=== PATIENT | female | born 1935 | race Caucasian/White ===

== ENCOUNTER → 2017-06-28 13:00 | Outpatient (CLI) | payer MEDICARE, OTHER | END | disposition home or self-care (01) | LOC: D.US 13:00 | DX: N18.4 Chronic kidney disease, stage 4 (severe) (principal) ==

== ENCOUNTER 2018-10-26 16:48 | Inpatient (IN) | payer MEDICARE, OTHER ==
[~2018-10-26] VITALS: Ht 160 cm; Wt 73.1 kg
--- NOTE | ~2018-10-26 | CN ---
PATIENT NAME:COLUMBA YU MEDICAL RECORD: [id number] : 33 LOCATION:D. D.2129 ADMIT DATE: 10/27/18 ACCOUNT: [id number] CONSULTING PHYSICIAN: WARREN ROSE MD REFERRING PHYSICIAN: TIMOTHY SOLIMAN MD DATE OF CONSULTATION: 10/28/2018 CONSULT REQUESTING PHYSICIAN: Evelyn Zapata MD REASON FOR CONSULTATION: Questionable pneumonia, right upper lobe; questionable mass. HISTORY OF PRESENT ILLNESS: Ms. Yu is an 83-year-old female who is very poor historian. The patient was admitted with worsening edema and shortness of breath. She denies any fever and chill. There is no cough and no sputum production. The patient had a chest radiograph which showed like a mass type of lesion in the right upper lobe. REVIEW OF THE SYSTEMS: As in history of present illness. PAST MEDICAL HISTORY: 1. CHF, chronic diastolic dysfunction. 2. Diabetes mellitus. 3. History of CA of breast. 4. Arthritis. PAST SURGICAL HISTORY: She had breast surgery. ALLERGIES: There is no known drug allergy. MEDICATIONS: Inkive was reviewed. PERSONAL AND SOCIAL HISTORY: The patient is an ex-smoker. She is nondrinker. FAMILY HISTORY: Noncontributory. PHYSICAL EXAMINATION: GENERAL: Now, the patient is lying comfortably in bed. She is not in acute distress. VITAL SIGNS: The blood pressure is 115/35, pulse is 72, respiration is 18, temperature is 97.5, and SpO2 is 97% on room air. HEENT: Conjunctivae are pink. Sclerae are not icteric. NECK: Neck is supple. No JVD. CHEST: The chest excursion is minimal on both sides. There are bilateral crackles. No wheezing. HEART: Rhythm regular. Normal sound. No murmur. ABDOMEN: Soft. Bowel sounds present. No hepatosplenomegaly. RECTAL: Deferred. EXTREMITIES: No cyanosis. No clubbing. Pedal edema 1+. CENTRAL NERVOUS SYSTEM: The patient is awake and alert. There is no obvious cranial nerve abnormality. The gait is normal. LABORATORY DATA: CBC; WBC is 7.7, hemoglobin 7.5, and hematocrit 23.4. On admission, her white cell count is 11.7. Chemistry; sodium 140, potassium 4.7, BUN is 96, and creatinine 3.5. CONSULT REPORT [id number] COLUMBA YU IMPRESSION: 1. Pneumonia, right upper lobe. 2. Mass type of lesion in the right upper lobe, 5 x 6.6 cm in size. 3. Pulmonary edema. 4. Pleural effusion. 5. 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 6. Congestive heart failure with chronic diastolic dysfunction. 7. Anemia. RECOMMENDATIONS: 1. Start on doxycycline IV. Start on Rocephin IV. 2. Get the CT scan of the chest. I had detailed discussion with the patient. She does not want to do the CT scan, she wants to think about it. At this stage, I spoke with Agustina, clinical nurse practitioner, that she should have a CT scan of the chest to rule out there is no mass in the right upper lobe and she will follow up on that. I will sign off if the patient is not cooperative regarding her care and she does not want to do the CT scan. Thank you for involving me in the care of Ms. Yu. TRANSINT:[id number] Voice Confirmation ID: [id number] DOCUMENT ID: [id number] WARREN ROSE MD CC: [id number] DICTATION DATE: 10/28/18 151 SITE LEADER: 10/28/18 2319 ADM IN [facility] [address] [place] [address]
--- NOTE | ~2018-10-26 | HP ---
PATIENT: COLUMBA YU MEDICAL RECORD: [id number] ACCOUNT: [id number] LOCATION:.[facility].2129 : 34 ADMISSION DATE: 10/26/18 PCP: TIMOTHY SOLIMAN MD HISTORY AND PHYSICAL EXAMINATION CHIEF COMPLAINT: Shortness of breath. HISTORY OF PRESENT ILLNESS: An 83-year-old white female patient of mine who was seen in clinic last week with signs of wweoh-ws-vdvbvvi systolic congestive heart failure. The patient had bilateral lower extremity edema and shortness of breath. Chest x-ray last week had bilateral fluffy infiltrates. The patient denied any fever. Last week, he doubled up on her Lasix and potassium and had a followup today. Today, in clinic, she reports still very short of breath and swelling worse in both lower extremities. She does not have oxygen at home. She has called the paramedics out to her house twice over the past week. She does not have a great memory. She does live at home with her family. At one point, last year, she was even on hospice for her congestive heart failure. At this time, she does not want anything to do with hospice, but she has failed outpatient treatment, so admitted to the hospital for further care. REVIEW OF SYSTEMS: CONSTITUTIONAL: No fever or chills. No weight gain. HEENT: No change in vision. Mild hard of hearing. CARDIOVASCULAR: She does have ankle swelling. No chest pain. RESPIRATORY: Positive for cough, wheeze, and shortness of breath. GASTROINTESTINAL: No nausea, vomiting, or diarrhea. GENITOURINARY: No dysuria. MUSCULOSKELETAL: No complaints of back pain. SKIN: No rash. NEUROLOGIC: No weakness or numbness. ENDOCRINE: She does complain of fatigue. PAST MEDICAL HISTORY: Anemia of chronic kidney disease; mixed hyperlipidemia; postherpetic neuritis; systolic congestive heart failure; chronic kidney disease; diabetes, insulin dependent; hypertension; and gout. PAST SURGICAL HISTORY: Cholecystectomy. MEDICATIONS: See med rec. ALLERGIES: No known drug allergies. FAMILY HISTORY: Diabetes. SOCIAL HISTORY: The patient is nonsmoker, never has been. Lives at home with her family. PHYSICAL EXAMINATION: CONSTITUTIONAL: No acute distress. HEENT: Normocephalic and atraumatic. NECK: Supple. No LAD. CARDIOVASCULAR: Regular rate and rhythm. III/ systolic ejection murmur. 1+ pedal edema. LUNGS: Decreased breath sounds bilaterally with bilateral bibasilar crackles. ABDOMEN: Soft and nontender to palpation. HISTORY AND PHYSICAL [id number] COLUMBA YU NEUROLOGIC: Awake, alert, and oriented times 3. Normal gait. SKIN: No rash. ASSESSMENT AND PLAN: Ganqx-ah-dmucmcs congestive heart failure, systolic in nature at this time. At this time, we will admit to the hospital for IV diuretics. Obtain echocardiogram and cardiology consult if needed. Other orders as written on chart. TRANSINT:[id number] Voice Confirmation ID: [id number] DOCUMENT ID: [id number] TIMOTHY SOLIMAN MD CC: [id number] DICTATION DATE: 10/26/181703 SENIOR CONSTRUCTION MANAGER: 10/26/18 180 ADM IN [place] [id number] [place] [address]
--- NOTE | 2018-10-26 18:02 | NUR ---
RECEIVED VIA WHEELCHAIR TO ROOM. DENIES NEEDS BUT FOR CHANDRA CRACKERS AND HOT TEA. WILL ADMITL.
[2018-10-26 18:36] VITALS: BP 121/47; BMI 23.9
--- NOTE | 2018-10-26 18:36 | NUR ---
22G X 1 STICK TO LEFT FA PER THIS NURSE. NON SKID SOCKS PLACED TO BILATERAL FEET WITH 2-3+ EDEMA.
--- NOTE | 2018-10-26 18:56 | NUR ---
PATIENT STATES THAT SHE WISHES TO BE A "DNR". CALL PLACED TO DR SOLIMAN TO GET AN ORDER FOR THIS.
[2018-10-26 19:11] LABS: BASOPHILS 0.2 % (0-2); EOSINOPHILS 3.2 % (0-7); HEMATOCRIT 25.6 % (36.0-48.0); HEMOGLOBIN 8.2 g/dL (12-16); IMMATURE GRANULOCYTES 0.3 % (0-5); LYMPHOCYTES 10.6 % (15-50); MCH 31.5 pg (26.0-34.0); MCV 98.5 fL (80.0-100.0); MEAN PLATELET VOLUME 10.2 fL (7.4-10.4); MONOCYTES 7.7 % (2-11); PLATELET COUNT 362 10x3/uL (130-400); RDW 13.4 % (11.5-14.5); WBC 11.7 10x3/uL (4.8-10.8)
[2018-10-26 19:47] LABS: ALBUMIN 2.3 g/dL (3.4-5.0); BILIRUBIN - TOTAL 0.21 mg/dL (0.2-1.3); CALCIUM 8.4 mg/dL (8.5-10.1); CARBON DIOXIDE 17.6 mmol/L (21.0-32.0); CREATININE - SERUM 3.5 mg/dL (0.6-1.3); PROTEIN - SERUM 7.5 g/dL (6.4-8.2)
[2018-10-26 19:56] LABS: ANION GAP 22.6 mmol/L (8-16); POTASSIUM - SERUM 6.2 mmol/L (3.5-5.1)
[2018-10-26 20:27] VITALS: BP 117/94
--- NOTE | 2018-10-27 00:22 | NUR ---
SPOKE TO ANTHONY IGNACIO WHOM SAID CONSULT WILL NEED TO BE CALLED TO OFFICE. TOLD SANDEE ABOUT PT STATUS. SHE ORDERED A BMP AT 0300 AND D5 WITH 3 AMP OF SODIUM BICARB GOING AT 50CC/HR.
[2018-10-27 02:01] VITALS: BP 115/49
[2018-10-27 04:01] LABS: BASOPHILS 0.2 % (0-2); EOSINOPHILS 3.9 % (0-7); HEMATOCRIT 24.2 % (36.0-48.0); HEMOGLOBIN 7.6 g/dL (12-16); IMMATURE GRANULOCYTES 0.3 % (0-5); LYMPHOCYTES 12.5 % (15-50); MCH 30.6 pg (26.0-34.0); MCHC 31.4 g/dL (31.0-37.0); MCV 97.6 fL (80.0-100.0); MEAN PLATELET VOLUME 10.3 fL (7.4-10.4); MONOCYTES 9.6 % (2-11); NEUTROPHILS 73.5 % (40-80); PLATELET COUNT 333 10x3/uL (130-400); RBC 2.48 10x6/uL (4.00-5.40); RDW 13.3 % (11.5-14.5); WBC 8.8 10x3/uL (4.8-10.8)
--- NOTE | 2018-10-27 04:21 | NUR ---
CRITICAL LAB WAS CALL AND REPORTED. POTASSIUM 6.2, BUN 105, CREATININE 3.5. NURSE PRACTIONER AVANI DENNIS WAS CALLED AND ORDERED KAYEXELATE 30MG PO. DEXTROSE 50 WITH 10 UNITS OF HUMULIN REG INSULIN AND 1 AMP OF CALCIUM CHLORIDE. I DID WATCH PT DRINK ALL OF THE KAYEXELATE. AND SANDEE VARMA ORDERED AUTOMATION DESIGN ENGINEER CONSULT. ANTHONY BLISS WAS CALLED AND SHE STATED THAT PT PRIMARY CARE OFFICE NEEDS TO CALL THE OFFICE TO SET UP CONSULT.
[2018-10-27 04:26] LABS: ALBUMIN 2.1 g/dL (3.4-5.0); BILIRUBIN - TOTAL 0.34 mg/dL (0.2-1.3); CARBON DIOXIDE 17.7 mmol/L (21.0-32.0); CREATININE - SERUM 3.4 mg/dL (0.6-1.3); PHOSPHOROUS 4.8 mg/dL (2.5-4.9); PROTEIN - SERUM 6.9 g/dL (6.4-8.2)
[2018-10-27 04:43] LABS: ANION GAP 18.2 mmol/L (8-16); POTASSIUM - SERUM 4.9 mmol/L (3.5-5.1)
[2018-10-27 05:42] VITALS: BP 115/49
[2018-10-27 08:02] VITALS: BP 128/74
--- NOTE | 2018-10-27 08:46 | NUR ---
UP SOB WITH CALL LIGHT IN REACH. WILL MONITOR NEEDS.
--- NOTE | 2018-10-27 09:02 | NUR ---
CALLED [facility] AND THEY ARE GOING TO FAX PT'S MED LIST OVER.
[2018-10-27] MEDS ORDERED: ROCALTROL0.25 MCG PO (09:32)
[2018-10-27] MEDS ORDERED: NORVASC5 MG PO (09:33)
[2018-10-27] MEDS ORDERED: TOPROL XL50 MG PO (09:33)
[2018-10-27] MEDS ORDERED: ISOSORBIDE MONO60 M1 PO (09:34)
[2018-10-27] MEDS ORDERED: VITAMIN D250000 UNIT PO (09:35)
[2018-10-27] MEDS ORDERED: LISINOPRIL2.5 MG PO (09:35)
[2018-10-27] MEDS ORDERED: LEVEMIR IN100 UNITS/ SC (09:35)
[2018-10-27] MEDS ORDERED: LIPITOR20 MG PO (09:36)
[2018-10-27] MEDS ORDERED: CARDURA2 MG PO (09:37)
--- NOTE | 2018-10-27 09:38 | NUR ---
RECEIVED MED LIST FAX FROM [facility]. MED REC DONE WILL SPEAK WITH PRIMARY MD ABOUT RESTARTING PT'S HOME MEDS.
--- NOTE | 2018-10-27 10:33 | NUR ---
VERIFIED WITH DR. RAMIREZ THAT HE WANTS A CHOI CATH PLACED. HE STATED FOR ACCURATE I & O.
--- NOTE | 2018-10-27 10:46 | NUR ---
SPOKE WITH DR. RAMIREZ AND HE STATES SINCE PT IS ALERT AND ORIENTED DON'T WORRY ABOUT PLACING A CHOI CTAH JUST MAKE SURE TO GET ACCURATE I&O.
[2018-10-27 10:49] VITALS: BP 132/71
--- NOTE | 2018-10-27 10:55 | NUR ---
EXPLAINED ACCUARTE I & O TO PT. PT VERBALIZED UNDERSTANDING. HAT PLACED IN PT'S TOILET.
[2018-10-27 13:07] VITALS: BMI 24.6
[2018-10-27 15:42] VITALS: BP 124/62
--- NOTE | 2018-10-27 17:44 | MORECARE ---
CASE MANAGEMENT DISCHARGE SUMMARY PATIENT: COLUMBA YU UNIT: [id number] ADM DATE: 10/27/18 AGE: 83 : 34 SEX: F ROOM/BED: D.5559 AUTHOR: MORALES JANSEN PHYSICIAN: REFERRING PHYSICIAN: TIMOTHY SOLIMAN MD DATE OF SERVICE: 10/27/18 Discharge Plan Patient Name: COLUMBA YU Facility: [facility]:[place] : 1935 Planned Disposition: Home Anticipated Discharge Date: 10/28/18 Discharge Date: Expected LOS: 1 Initial Reviewer: [email or web address] Initial Review Date: 10/27/2018 Generated: 10/27/18 6:43 pm DCPIA - Discharge Planning Initial Assessment Updated by [email or web address]: Gamaliel Riley on 10/27/18 5:43 pm * Is the patient Alert and Oriented? Yes * How many steps to enter\exit or inside your home? * PCP DR. SOLIMAN * Pharmacy [facility] [place] * Preadmission Environment Home with Family * ADLs Independent * Equipment Walker * Other Equipment DOES NOT USE ANY MEDICAL EQUIPMENT [employer] - MEDICAL EQUIPMENT PROVIDER * List name and contact numbers for known caregivers / representatives who currently or will assist patient after discharge: JV YU, SON, * Verbal permission to speak to the caregivers and representatives has been obtained from the patient. Yes * Community resources currently utilized None * Please name any agencies selected above. NONE * Additional services required to return to the preadmission environment? No * Can the patient safely return to the preadmission environment? Yes * Has this patient been hospitalized within the prior 30 days at any hospital? No Patient Name: COLUMBA YU Page [phone] at 1744 All edits/amendments must be made on the electronic document DICTATION DATE: 10/27/181742 STATISTICAL ASSISTANT: IAIN 10/27/181742 RPT#: [id number] DC DATE: STATUS: ADM IN [facility] [address] [place] [address] END OF REPORT
--- NOTE | 2018-10-27 17:58 | MORECARE ---
CASE MANAGEMENT DISCHARGE SUMMARY PATIENT: COLUMBA YU UNIT: [id number] ADM DATE: 10/27/18 AGE: 83 : 34 SEX: F ROOM/BED: D.3030 AUTHOR: JUSTYNADOC PHYSICIAN: REFERRING PHYSICIAN: TIMOTHY SOLIMAN MD DATE OF SERVICE: 10/27/18 Discharge Plan Patient Name: COLUMBA YU Facility: [facility]:[place] : 1935 Planned Disposition: Home Anticipated Discharge Date: 10/28/18 Discharge Date: Expected LOS: 1 Initial Reviewer: [email or web address] Initial Review Date: 10/27/2018 Generated: 10/27/18 6:58 pm Comments DCP- Discharge Planning Updated by [email or web address]: Gamaliel Riley on 10/27/18 4:[address] Patient Name: COLUMBA YU Admission Status: Urgent Accout number: [id number] Admission Date: 10-27-2018 : 1935 Admission Diagnosis: Attending: JOURDAN, Current LOS: 1 Anticipated DC Date: 10-28-2018 Planned Disposition: Home Primary Insurance: MEDICARE A & B Discharge Planning Comments: CM RECEIVED REQUEST TO PROVIDE PT WITH ASSISTED LIVING INFORMATION. CM MET WITH PT IN ROOM TO DISCUSS DISCHARGE PLANNING AND NEEDS. PT REPORTS LIVING AT HOME INDEPENDENTLY WITH HER ADULT SON IN HIS HOME. PT REPORTS SHE HAS HER HOME NEXT DOOR TO HER SON'S ON HIS PROPERTY AND SIGNED EVERYTHING OVER TO HIM AT THE MECHANICAL HANDYMAN'S OFFICE. PT REPORTS HER GRANDDAUGHTER IS LIVING IN HER (PT'S) HOME AND PT IS LIVING IN A ROOM IN HER SON'S HOME NOW. PT REPORT ALL OF HER NICE BELONGINGS AND THINGS ARE IN HER HOME AND NONE WILL BE MOVED UNTIL SHE DIES. PT REPORTS HER SON WILL GET HER HOUSE AND HER DAUGHTER WILL GET EVERYTHING OUT OF THE HOUSE, EVEN THOUGH SHE DOES NOT WANT IT. PT HAS A WALKER THAT SHE DOES NOT USE, FROM [employer]. PT HAS NO OUTSIDE SERVICES ASSISTING IN THE HOME. CM DISCUSSED AVAILABILITY OF HOME HEALTH, REHAB SERVICES AND MEDICAL EQUIPMENT. PT DENIES DISCHARGE NEEDS, REPORTS HER SON WILL PICK HER UP FOR DISCHARGE HOME CM PROVIDED ASSISTED AND INDEPENDENT LIVING INFORMATION, DISCUSSED COSTS. PT REPORTS SHE WANTS AN APARTMENT AT [facility] OR [facility] AND NO WHERE ELSE. PT REPORTS SHE CANNOT AFFORD EITHER ONE, AND HAS INCOME OF $1,300 PER MONTH. PT KNOWS THAT EXCEPTIONS CAN BE MADE AND A MIRACLE CAN HAPPEN AND SHE MAY COULD GET IN. CM EXPLAINED THAT ALL ASSISTED LIVINGS ARE A BUSINESS AND THAT IF SHE CANNOT PAY THE RATE SHE WILL NOT GET IN. CM PROVIDED PT WITH A PLACE FOR MOM REFERRAL SERVICE. PT REPORTS IT TO BE OK TO DISCUSS DISCHARGE PLANNING WITH HER SON WELL TREATMENT INFORMATION. CM OFFERED TO CALL ROJELIO OF A PLACE FOR MOM AND HAVE ROJELIO CALL HER AND HER SON TO SEE WHAT IS AVAILABLE IN PT'S [place] RANGE. PT ACCEPTED. CM CALLED ROJELIO OF A PLACE FOR MOM, , PROVIDED REFERRAL INFORMATION. ROJELIO LATER CALLED AND INFORMED CM THAT PT DID NOT ANSWER THE PHONE IN THE ROOM BUT SHE CALLED PT'S SON, JV AND PT'S BUDGET DOES NOT ALLOW WHAT PT WANTS AND THAT ROJELIO AND PT'S SON WILL CONTINUE TO SEEK OPTIONS FOR PT. PT DENIES DISCHARGE NEEDS. PT PLANS TO DISCHARGE HOME WITH HER SON WHERE SHE REPORTS TO BE SAFE. PT'S SON AND ROJELIO OF A PLACE FOR MOM WILL CONTINUE TO SEEK INDEPENDENT OR ASSISTED LIVING FOR PT THAT SHE CAN ACTUALLY AFFORD, IF ANY. Bonding Machine Setter: Gamaliel Riley DCPIA - Discharge Planning Initial Assessment Updated by [email or web address]: Gamaliel Riley on 10/27/18 5:43 pm * Is the patient Alert and Oriented? Yes * How many steps to enter\exit or inside your home? * PCP DR. SOLIMAN * Pharmacy [facility] IN [place] * Preadmission Environment Home with Family * ADLs Independent * Equipment Walker * Other Equipment DOES NOT USE ANY MEDICAL EQUIPMENT [employer] - MEDICAL EQUIPMENT PROVIDER * List name and contact numbers for known caregivers / representatives who currently or will assist patient after discharge: JV YU, SON, * Verbal permission to speak to the caregivers and representatives has been obtained from the patient. Yes * Community resources currently utilized None * Please name any agencies selected above. NONE * Additional services required to return to the preadmission environment? No * Can the patient safely return to the preadmission environment? Yes * Has this patient been hospitalized within the prior 30 days at any hospital? No Last DP export: 10/27/18 4:43 Patient Name: COLUMBA YU Page [phone] at 1758 All edits/amendments must be made on the electronic document DICTATION DATE: 10/27/181756 DAYCARE TEACHER: IAIN 10/27/181756 RPT#: [id number] DC DATE: STATUS: ADM IN [facility] [address] [place] [address] END OF REPORT
--- NOTE | 2018-10-27 18:23 | NUR ---
PT WANTING PRUNE JUICE TO HELP HER TO HAVE A BM. GAVE PT ONE PRUNE JUICE.
[2018-10-27 20:00] VITALS: BP 109/41
--- NOTE | 2018-10-27 21:14 | NUR ---
HS MEDS GIVEN WITH FRESH ICE WATER. PT REFUSED BLOOD SUGAR, STATED THAT SHE ONLY TAKES LANTUS IN THE MORNING AND DOESNT WANT ANY OTHER INSULIN.
[2018-10-28] VITALS: BP 114/34
--- NOTE | 2018-10-28 01:38 | NUR ---
TYLENOL 1 TAB GIVEN ALONG WITH PRUNE JUICE AT PTS REQUEST.
--- NOTE | 2018-10-28 01:39 | NUR ---
RN NOTE. PATIENT APPEARS TO BE SLEEPING. RESPIRATIONS ARE EVEN AND UNLABORED. NO S/S OF DISTRESS. CALL LIGHT WITHIN REACH. WILL CPOC.
[2018-10-28 05:23] VITALS: BP 91/35
[2018-10-28 06:54] LABS: ALBUMIN 1.9 g/dL (3.4-5.0); ANION GAP 18.4 mmol/L (8-16); BILIRUBIN - TOTAL 0.2 mg/dL (0.2-1.3); CALCIUM 7.4 mg/dL (8.5-10.1); CARBON DIOXIDE 21.3 mmol/L (21.0-32.0); CREATININE - SERUM 3.5 mg/dL (0.6-1.3); POTASSIUM - SERUM 4.7 mmol/L (3.5-5.1); PROTEIN - SERUM 6.3 g/dL (6.4-8.2)
[2018-10-28 06:57] LABS: BASOPHILS 0.3 % (0-2); EOSINOPHILS 6.7 % (0-7); HEMATOCRIT 23.4 % (36.0-48.0); IMMATURE GRANULOCYTES 0.1 % (0-5); LYMPHOCYTES 15.9 % (15-50); MCH 31.1 pg (26.0-34.0); MCHC 32.1 g/dL (31.0-37.0); MCV 97.1 fL (80.0-100.0); MEAN PLATELET VOLUME 10.3 fL (7.4-10.4); MONOCYTES 10.5 % (2-11); NEUTROPHILS 66.5 % (40-80); PLATELET COUNT 331 10x3/uL (130-400); RBC 2.41 10x6/uL (4.00-5.40); RDW 13.5 % (11.5-14.5); WBC 7.7 10x3/uL (4.8-10.8)
[2018-10-28 07:12] LABS: HEMOGLOBIN 7.5 g/dL (12-16)
--- NOTE | 2018-10-28 08:00 | NUR ---
DR. RAMIREZ NOTIFIED OF HGB 7.5. HE GAVE NO NEW ORDERS.
[2018-10-28 08:33] VITALS: BP 115/35
[2018-10-28 08:42] VITALS: Ht 160 cm; Wt 73.1 kg
--- NOTE | 2018-10-28 09:43 | NUR ---
UP IN CHAIR WITH CALL LIGHT IN REACH. WILL MONITOR NEEDS.
[2018-10-28 12:05] VITALS: BP 108/49
--- NOTE | 2018-10-28 12:19 | NUR ---
Nutrition follow-up: Diet: ADA consistent CHO with 1500 ml FR PO intake ~50% of meals Labs reviewed Wt: 140# RDN following.
--- NOTE | 2018-10-28 13:20 | NUR ---
PT TOOK SHOWER WITH HELP OF SLAUGHTERER RELIGIOUS RITUAL. BED LINENS CHANGED.
--- NOTE | 2018-10-28 13:21 | NUR ---
PT RECEIVING BATH BY MOISES.
--- NOTE | 2018-10-28 13:37 | EC ---
PATIENT:COLUMBA YU DATE OF SERVICE: 10/27/18 SEX: F MEDICAL RECORD: [id number] DATE OF : [birth year] LOCATION:D. D.212 AGE OF PATIENT: 83 ADMISSION DATE: 10/27/18 REFERRING PHYSICIAN: INTERPRETING PHYSICIAN: VALARIE KEARNS MD ECHOCARDIOGRAM REPORT ECHO CHARGES 4 ECHO COMPLETE Date: 10/27/18 CLINICAL DIAGNOSIS: CHF ECHOCARDIOGRAPHIC MEASUREMENTS (adult normal given) AC root (d.<3.7cm) 3.5 cm LV Septum d (<1.2 cm> 14.4 cm Valve Excursion 0.7 cm LV Septum (systole) 1.5 cm Left Atria (s.<4.0cm> 3.8 cm LVPW d(<1.2cm) 1.4 cm RV (d.<2.3cm) 4.1 cm LVPW (sytole) 1.5 cm LV diastole(<5.6CM) 5.8 cm MV E-F(>70mm/sec) cm LV systole 4.5 cm LVOT Diameter 1.7 cm MV exc.(>10mm) 1.2 cm Est.ejection fraction (50-75%) % DOPPLER: LVIT cm/sec A 103 cm/sec E 134 cm/sec LA cm/sec RVSP 28 mmHg LVOT 130 cm/sec AOP1/2T m/s Asc. Ao 242 cm/sec RVOT 81 cm/sec RA cm/sec PA 89 cm/sec AV Gradient Peak 23.48mmHg AV Mean 12.97mmHg AV Area 1.4 cm MV Gradient Peak 9.03 mmHg MV Mean 3.69 mmHg MV Area cm COMMENTS: Catalogue Illustrator: Shemar JACOBO Health And Physical Education Teacher: 3 Dr. Mcdonald TAPE# PACS Pericardial Effusion Y DATE OF SERVICE: 10/27/2018 FINDINGS: 1. Left ventricular chamber size is within normal limits. Left ventricular systolic function is normal. Overall ejection fraction estimated at 55%. 2. Left atrium, right atrium, and right ventricle chamber sizes are within normal limits. 3. Valvular structures: Aortic valve demonstrates mild calcific aortic stenosis, valve area calculates to 1.4 where is a gradient of 24 mm across the valve. The remaining valvular structures have normal structure and motion. ECHOCARDIOGRAM REPORT [id number] GIGI,COLUMBA ANSLEY 4. Doppler interrogation reveals mild mitral regurgitation, mild tricuspid regurgitation, no other valvular insufficiency or stenosis. Pulmonary systolic pressure is estimated 28 mmHg. 5. No evidence of pericardial effusion or left ventricular thrombus. TRANSINT:[id number] Voice Confirmation ID: [id number] DOCUMENT ID: [id number] VALARIE KEARNS MD at 1337 CC: [id number] DICTATION DATE: 10/27/181847 ROPEMAN: 10/27/182228 ADM IN [place] [id number] [place] [address]
[2018-10-28 15:52] VITALS: BP 108/33
--- NOTE | 2018-10-28 19:10 | NUR ---
SITTING ON SIDE OF BED. REQUESTED ASSISTANCE TO BATHROOM TO VOID. AMBULATED WITH SLOW STEADY GAIT. INITIAL ASSESSMENTS STARTED. IV IN L FA INTACT SL. TELEMETRY SHOWS 85 SR ON THE MONITOR. DENIES ANY OTHER NEEDS. BED IS LOW. REFUSED SR UP. HAS CALL LIGHT IN REACH.
[2018-10-28 20:50] VITALS: BP 109/36
[2018-10-29 01:30] VITALS: BP 96/75
--- NOTE | 2018-10-29 03:06 | NUR ---
WASTE MACHINE TENDER ASSISTING TO THE BR TO VOID. DENIES PAIN OR ANY OTHER NEEDS.
[2018-10-29 06:14] VITALS: BP 105/32
[2018-10-29 06:55] LABS: BASOPHILS 0.2 % (0-2); EOSINOPHILS 6.1 % (0-7); HEMATOCRIT 25.9 % (36.0-48.0); HEMOGLOBIN 8.2 g/dL (12-16); IMMATURE GRANULOCYTES 0.2 % (0-5); MCH 31.3 pg (26.0-34.0); MCHC 31.7 g/dL (31.0-37.0); MCV 98.9 fL (80.0-100.0); MEAN PLATELET VOLUME 10.6 fL (7.4-10.4); MONOCYTES 9.8 % (2-11); NEUTROPHILS 65.7 % (40-80); PLATELET COUNT 349 10x3/uL (130-400); RBC 2.62 10x6/uL (4.00-5.40); RDW 13.5 % (11.5-14.5); WBC 8.2 10x3/uL (4.8-10.8)
--- NOTE | 2018-10-29 07:00 | NUR ---
RECEIVED REPORT. ASSUMED CARE OF PATIENT. PATIENT LYING IN SUPINE POSTION WITH HEAD OF BED ELEVATED. PATIENT COMPLAINING THAT SHE IS HOOKED TO ANTIBIOTICS AND THAT SHE DOSEN'T NEED THEM. PATIENT STATES SHE CAME IN WITH CHF WHICH HAS BEEN TREATED AND NOW THEY ARE FISHING TO FIND SOMETHING ELSE WRONG WITH HER AND HAVE PUT HER ON ABT. ASSISTED TO PULL PATIENT UP IN BED WITH SPRAYER LEATHER. NO DISTRESS. CALL LIGHT WITHIN REACH.
[2018-10-29 08:03] LABS: ALBUMIN 2.1 g/dL (3.4-5.0); ANION GAP 20.6 mmol/L (8-16); BILIRUBIN - TOTAL 0.16 mg/dL (0.2-1.3); CALCIUM 7.4 mg/dL (8.5-10.1); CREATININE - SERUM 3.4 mg/dL (0.6-1.3); POTASSIUM - SERUM 4.6 mmol/L (3.5-5.1)
[2018-10-29 08:21] VITALS: BP 135/77
--- NOTE | 2018-10-29 08:27 | NUR ---
PATIENT DEMANDED IV BE REMOVED FROM HER LEFT FOREARM. PATIENT STATES THAT IT HAS BEEN THERE FOR 4 DAYS, THAT WAS LONG ENOUGH AND HER ARM IS HURTING. PATIENT REFUSED TO LET THIS COLLECTION CORRESPONDENT INSERT IV AT DIFFERENT LOCATION. PATIENT STATES SHE IS TIRED OF ALL THE NEEDLE POKES. PATIENT STATES "IF I , I , IM OLD, LET ME GO!" ENCOURAGED PATIENT TO LET THIS COLLECTION CORRESPONDENT START A NEW IV AND PATIENT REFUSED.
--- NOTE | 2018-10-29 08:29 | NUR ---
22 GAUGE IV REMOVED FROM LEFT FOREARM UPON REQUEST. CATHETER TIP INTACT. NO BLEEDING FROM SITE. 2X2 GAUZE APPLIED AND SECURED WITH TAPE. PATIENT UP TO RESTROOM AT THIS TIME.
--- NOTE | 2018-10-29 09:23 | NUR ---
FSBS 158. 11 UNITS LEVEMIR ADMINISTERED ORDERED. NO DISTRESS.
--- NOTE | 2018-10-29 11:58 | NUR ---
FSBS 146. NO INSULIN PER SLIDING SCALE.
[2018-10-29 12:41] VITALS: BP 188/75
--- NOTE | 2018-10-29 14:52 | NUR ---
ORDER RECEIVED FOR PATIENT TO HAVE THROAT LOZENGES PRN FOR HOARNSNESS. ORDER PLACED INTO SYSTEM.
--- NOTE | 2018-10-29 15:46 | NUR ---
PATIENT SITTING IN CHAIR AT BEDSIDE. PATIENT READING BIBLE AND PAPER. NO DISTRESS. PATIENT HAD NICE CONVERSATION WITH THIS MICROFILM TECHNICIAN ABOUT THE TOWN THAT WE HAVE BOTH LIVED IN. PATIENT VOICED CONCERNS ABOUT HER SON AND THE HOUSE THAT SHE BUILT ON HIS LAND AND HOW HE "HAS HER OVER A BARREL" NOW THAT SHE IS SICK. PATIENT OPENING UP TO THIS MICROFILM TECHNICIAN ALOT ABOUT HER PERSONAL WORRIES. THIS MICROFILM TECHNICIAN LET PATIENT VENT HER FAMILY FRUSTRATIONS AND CHANGED THEN ABLE TO CHANGE THE SUBJECT. PATIENT IS PEACEFULL AND CONTINUES TO SIT IN CHAIR AT BEDSIDE. NO DISTRESS CALL LIGHT WITHIN REACH.
--- NOTE | 2018-10-29 16:28 | NUR ---
FSBS 250. 4 UNITS HUMALOG ADMINISTERED PER SLIDING SCALE. NO DISTRESS.
[2018-10-29 16:51] VITALS: BP 112/40
--- NOTE | 2018-10-29 18:14 | NUR ---
PATIENT BP 110/40 MANUAL. SPOKE TO ROMAN RODGERS DUE TO PATIENT IS SCHEDULED TO RECEIVED 80MG LASIX PO. NEW ORDER RECEIVED TO HOLD THIS DOSE OF LASIX AND ONLY GIVE 20MG PO X 1 TONIGHT. WILL RE-EVALUATE PATIENTS FLUID STATUS AND BP IN AM.
--- NOTE | 2018-10-29 18:22 | NUR ---
PROCESS IMPROVEMENT ANALYST CALLED TO PULL LASIX 20MG TABLET AND SHE WILL CALL THIS MILLER APPRENTICE BACK SHE WAS BUSY WITH A PATIENT.
--- NOTE | 2018-10-29 20:21 | NUR ---
INITIAL ROUNDS AND ASSESSMENT COMPLETED. SR PER TELEMETRY. NONLABORED RESPIRATIONS ON ROOM AIR. NO IV ACCESS. PT REFUSES IV. VERY [place]. MONITOR AND CPOC.
[2018-10-29 20:30] VITALS: BP 111/43
--- NOTE | 2018-10-29 23:08 | NUR ---
BEDTIME MEDS GIVEN. FSBS 88. PROVIDED SNACK/JUICE. ASSISTED TO STRAIGHTEN OUT SHEETS/GOWN/FLUFF PILLOWS AND GET PT COMFORTABLE. MONITOR AND CPOC.
[2018-10-30 00:38] VITALS: BP 129/47
--- NOTE | 2018-10-30 02:46 | NUR ---
RESTING IN BED WITH NO DISTRESS. RESPS EVEN/NONLABORED. CALL LIGHT IN REACH. MONITOR AND CPOC.
[2018-10-30 05:40] VITALS: BP 122/49
[2018-10-30 06:53] LABS: BASOPHILS 0.1 % (0-2); EOSINOPHILS 4.3 % (0-7); HEMATOCRIT 25.6 % (36.0-48.0); HEMOGLOBIN 8.1 g/dL (12-16); IMMATURE GRANULOCYTES 0.1 % (0-5); LYMPHOCYTES 12.8 % (15-50); MCHC 31.6 g/dL (31.0-37.0); MCV 98.1 fL (80.0-100.0); MEAN PLATELET VOLUME 10.5 fL (7.4-10.4); MONOCYTES 8.5 % (2-11); NEUTROPHILS 74.2 % (40-80); PLATELET COUNT 371 10x3/uL (130-400); RBC 2.61 10x6/uL (4.00-5.40); RDW 13.6 % (11.5-14.5); WBC 7.7 10x3/uL (4.8-10.8)
--- NOTE | 2018-10-30 07:00 | NUR ---
RECEIVED REPORT. ASSUMED CARE OF PATIENT. SITTING UP IN BED, ALERT/ORIENTED. CALL LIGHT WITHIN REACH. COFFEE PROVIDED UPON REQUEST (120 CC) PT IS ON FLUID RESTRICTION. NO DISTRESS.
[2018-10-30 07:13] LABS: % SATURATION 18 % (15-55); IRON 37 ug/dl (35-150); TOTAL IRON BIND CAPACITY 198 ug/dl (260-445); UNSAT IRON BIND CAPACITY 161 ug/dl (150-375)
[2018-10-30 07:42] LABS: ALBUMIN 2.2 g/dL (3.4-5.0); ANION GAP 19.2 mmol/L (8-16); BILIRUBIN - TOTAL 0.16 mg/dL (0.2-1.3); CALCIUM 7.3 mg/dL (8.5-10.1); CARBON DIOXIDE 22.8 mmol/L (21.0-32.0); CREATININE - SERUM 3.6 mg/dL (0.6-1.3); PROTEIN - SERUM 6.1 g/dL (6.4-8.2)
[2018-10-30 08:31] VITALS: BP 167/64
--- NOTE | 2018-10-30 09:13 | NUR ---
FSBS 231. 11 UNIYS LEVIMER ADMINISTERED ORDERED.
--- NOTE | 2018-10-30 11:33 | NUR ---
FSBS 211. 4 UNITS HUMALOG ADMINISTERED PER SLIDING SCALE.
[2018-10-30 12:54] VITALS: BP 155/83
--- NOTE | 2018-10-30 13:30 | NUR ---
SITTING IN CHAIR AT BEDSIDE. WAITING FOR HER GRANDKIDS TO COME VISIT AFTER GETTING OUT OF [place] TODAY. CALLL LIGHT WITHIN REACH. DENIES NEEDS. NO DISTRESS. CALLED PHARMACY AT THIS TIME INQUIRING WHERE PATIENTS LOZENGES ARE FOR HOARSNESS IN THROAT.
--- NOTE | 2018-10-30 14:56 | NUR ---
COMPLETED WALKING UNIT WITH HER GRANDDAUGHTER. PATIENT SITTING IN CHAIR AT BEDSIDE WITH HER FEET UP. PATIENT ON HER PERSONAL TABLET. CALL LIGHT WITHIN REACH. NO DISTRESS. SORE THROAT LOZENGE PROVIDED.
--- NOTE | 2018-10-30 16:06 | NUR ---
FSBS 130. NO INSULIN REQUIRED PER SLIDING SCALE.
[2018-10-30 16:42] VITALS: BP 148/55
--- NOTE | 2018-10-30 17:59 | NUR ---
PATIENT AMBULATING IN ROOM. NO DISTRESS. DENIES NEEDS AT THIS TIME. CALL LIGHT WITHIN REACH.
--- NOTE | 2018-10-30 19:32 | NUR ---
REPORT RECEIVED. PT SITTING UP ON SIDE OF BED WITH EYES OPEN, RR EVEN AND UNLABORED. BED IN LOW POSITION. SIDE RAILS UP X2. NO S/S OF DISTRESS. DENIES NEEDS. CALL LIGHT IN REACH. WILL CONTINUE TO MONITOR.
[2018-10-30 20:53] VITALS: BP 100/48
[2018-10-31 00:45] VITALS: BP 97/42
--- NOTE | 2018-10-31 02:10 | NUR ---
RESTING IN BED WITH NO DISTRESS. RESPS EVEN/NONLABORED. NO DISTRESS. MONITOR AND CPOC.
--- NOTE | 2018-10-31 02:58 | NUR ---
PT SITTING UP IN BED WITH EYES CLOSED, RR EVEN AND UNLABORED. NO S/S OF DISTRESS. BED IN LOW POSITION. CALL LIGHT IN REACH. WILL CONTINUE TO MONITOR.
[2018-10-31 04:25] VITALS: BP 90/63
[2018-10-31 04:40] LABS: BASOPHILS 0.3 % (0-2); EOSINOPHILS 4.7 % (0-7); HEMATOCRIT 22.1 % (36.0-48.0); IMMATURE GRANULOCYTES 0.2 % (0-5); LYMPHOCYTES 15.8 % (15-50); MCH 31.1 pg (26.0-34.0); MCHC 32.1 g/dL (31.0-37.0); MCV 96.9 fL (80.0-100.0); MONOCYTES 11.8 % (2-11); NEUTROPHILS 67.2 % (40-80); RBC 2.28 10x6/uL (4.00-5.40); RDW 13.4 % (11.5-14.5); WBC 6.6 10x3/uL (4.8-10.8)
[2018-10-31 04:53] LABS: HEMOGLOBIN 7.1 g/dL (12-16); PLATELET COUNT 286 10x3/uL (130-400)
[2018-10-31 05:11] LABS: ANION GAP 18.2 mmol/L (8-16); BILIRUBIN - TOTAL 0.19 mg/dL (0.2-1.3); CARBON DIOXIDE 21.7 mmol/L (21.0-32.0); CREATININE - SERUM 3.9 mg/dL (0.6-1.3); POTASSIUM - SERUM 4.9 mmol/L (3.5-5.1); PROTEIN - SERUM 6.5 g/dL (6.4-8.2)
[2018-10-31 05:12] LABS: CALCIUM 6.9 mg/dL (8.5-10.1)
--- NOTE | 2018-10-31 07:01 | NUR ---
NOTIFIED BY LAB OF PT'S 7.1 HGB. CALLED AVANI SONNY AT [phone]. AWAITING CALL BACK.
--- NOTE | 2018-10-31 07:06 | NUR ---
ROUNDING DONE WITH PATIENT BEING SLIGHTLY HARD TO AROUSES, BUT FINALLY DOES. STATES THAT SHE WAS "REALLY SLEEPING". PATIENT IS A DNR CODE STATUS. ON HEART MONITOR SHOWING SR, HR 73. ON ROOM AIR. NO IV ACCESS SEEN. PATIENT IS ON FLUID RESTRICTION WITH 500 CC BEING USED LAST SHIFT. BED ALARM IN USE.
--- NOTE | 2018-10-31 08:06 | NUR ---
ASSISTED TO CHAIR FOR BREAKFAST. CALL LIGHT IS IN REACH.
--- NOTE | 2018-10-31 08:47 | NUR ---
B/P MEDS HELD R/T PRESSURE 98/42.
[2018-10-31 08:52] VITALS: BP 98/42
--- NOTE | 2018-10-31 09:00 | NUR ---
PATIENT IS INSTRUCTED IN NEED FOR URINE COLLECTION.
--- NOTE | 2018-10-31 09:46 | NUR ---
URINE SENT TO LAB ORDERED.
[2018-10-31 10:12] LABS: APPEARANCE CLEAR (CLEAR); BILIRUBIN NEGATIVE (NEGATIVE); COLOR STRAW (YELLOW); GLUCOSE NEGATIVE (NEGATIVE); KETONE NEGATIVE (NEGATIVE); NITRITE NEGATIVE (NEGATIVE); PROTEIN 2+ mg/dL (NEGATIVE); SPECIFIC GRAVITY 1.005 (1.005-1.020); UROBILINOGEN NORMAL (NORMAL)
[2018-10-31 10:33] LABS: AMORPHOUS SEDIMENT <1+ /lpf (NONE SEEN); BACTERIA FEW /hpf (NONE SEEN); HYALINE CAST 0-5 /lpf (NONE SEEN); MUCUS <1+ /lpf (NONE SEEN); RED CELLS - URINE RARE /hpf (0-5); WHITE CELLS - URINE 0-5 /hpf (0-5)
--- NOTE | 2018-10-31 10:34 | NUR ---
UP WITH THERAPY AMBULATING IN HALLWAY.
--- NOTE | 2018-10-31 11:21 | NUR ---
SITTING IN CHAIR, DENIES NEEDS EXCEPT WANTING TO GO HOME.
--- NOTE | 2018-10-31 11:51 | NUR ---
COMPLETE BED LINEN CHANGE DONE. PATIENT STILL IN CHAIR AT THIS TIME.
[2018-10-31 12:32] VITALS: BP 102/68
--- NOTE | 2018-10-31 16:02 | NUR ---
PATIENT IS VERY ADAMENT THAT SHE DOES NOT WANT ANOTHER IV OR TO RECEIVE ANY BLOOD PRODUCTS. I TALKED TO HER ABOUT THE FACT THAT SHE WILL GET WEAKER WITHOUT IT, THAT IT WOULD MAKE HER FEEL BETTER TO GET IT. SHE REPLIES, "NO". I AM TIRED AND I DON'T WANT TO LIVE MUCH LONGER.
[2018-10-31 16:42] VITALS: BP 102/58
--- NOTE | 2018-10-31 16:56 | MORECARE ---
CASE MANAGEMENT DISCHARGE SUMMARY PATIENT: COLUMBA YU UNIT: [id number] ADM DATE: 10/27/18 AGE: 83 : 34 SEX: F ROOM/BED: D.3089 AUTHOR: MORALES JANSEN PHYSICIAN: REFERRING PHYSICIAN: TIMOTHY SOLIMAN MD DATE OF SERVICE: 10/31/18 Discharge Plan Patient Name: COLUMBA YU Facility: [facility]:[place] : 1935 Planned Disposition: Home Anticipated Discharge Date: 10/28/18 Discharge Date: Expected LOS: 1 Initial Reviewer: [id number] Initial Review Date: 10/27/2018 Generated: 10/31/18 5:56 pm Comments DCP- Discharge Planning Updated by [id number]: Gamaliel Riley on 10/31/18 3:[address] Patient Name: COLUMBA YU Encounter No: [id number] : 1935 Primary Insurance: MEDICARE A & B Anticipated DC Date: 10-28-2018 Planned Disposition: Home DCP follow-up note: CM SPOKE TO DR. REESE WHO REPORTS PT'S RENAL FUNCTIONING APPEARS TO BE DECLINING. CM SPOKE TO PT IN ROOM REGARDING DISCHARGE PLANNING AND NEEDS. PT REPORTED TO CM THAT SHE THOUGHT SHE WOULD HAVE ALREADY BEEN DISCHARGED HOME AND DID NOT EXPECT TO STILL BE IN THE HOSPITAL. CM ASKED ABOUT WHAT THE DOCTORS HAVE BEEN TELLING HER. PT REPORTS SHE SPOKE TO DR. REESE AND UNDERSTANDS HER KINDEY CONDITION AND IF IT COMES TO NEEDING DIALYSIS, PT STATES SHE WILL NOT DO THAT. PT REPORTS THAT SHE UNDERSTANDS THAT IT WOULD MEAN SHE WOULD , BUT SHE IS COMFORABLE WITH THIS DECISION AND ALL OF HER ARRANGMENTS ARE MADE. PT DENIES NEEDS OF CM AT THIS TIME AND REPORTS PLAN TO DISCHARGE HOME WITH HER SON, BUT STATES SHE DOES NOT WANT TO BE A BURDEN TO ANYONE. IF PT NEEDS DIALYSIS, AT THIS TIME, SHE INDICATED TO CM THAT SHE WOULD NOT CONSENT TO IT. PT DENIES DISCHARGE NEEDS. PT CONTINUES TO PLAN TO DISCHARGE HOME WITH HER SON. CM WILL CONTINUE TO FOLLOW AND ASSIST NEEDED. Commercial Leasing Agent: Gamaliel Riley DCP- Discharge Planning Updated by [id number]: Gamaliel Riley on 10/27/18 4:[address] Patient Name: COLUMBA YU Admission Status: Urgent Accout number: [id number] Admission Date: 10-27-2018 : 1935 Admission Diagnosis: Attending: JOURDAN, Current LOS: 1 Anticipated DC Date: 10-28-2018 Planned Disposition: Home Primary Insurance: MEDICARE A & B Discharge Planning Comments: CM RECEIVED REQUEST TO PROVIDE PT WITH ASSISTED LIVING INFORMATION. CM MET WITH PT IN ROOM TO DISCUSS DISCHARGE PLANNING AND NEEDS. PT REPORTS LIVING AT HOME INDEPENDENTLY WITH HER ADULT SON IN HIS HOME. PT REPORTS SHE HAS HER HOME NEXT DOOR TO HER SON'S ON HIS PROPERTY AND SIGNED EVERYTHING OVER TO HIM AT THE [employer]WER'S OFFICE. PT REPORTS HER GRANDDAUGHTER IS LIVING IN HER (PT'S) HOME AND PT IS LIVING IN A ROOM IN HER SON'S HOME NOW. PT REPORT ALL OF HER NICE BELONGINGS AND THINGS ARE IN HER HOME AND NONE WILL BE MOVED UNTIL SHE DIES. PT REPORTS HER SON WILL GET HER HOUSE AND HER DAUGHTER WILL GET EVERYTHING OUT OF THE HOUSE, EVEN THOUGH SHE DOES NOT WANT IT. PT HAS A WALKER THAT SHE DOES NOT USE, FROM [employer]. PT HAS NO OUTSIDE SERVICES ASSISTING IN THE HOME. CM DISCUSSED AVAILABILITY OF HOME HEALTH, REHAB SERVICES AND MEDICAL EQUIPMENT. PT DENIES DISCHARGE NEEDS, REPORTS HER SON WILL PICK HER UP FOR DISCHARGE HOME CM PROVIDED ASSISTED AND INDEPENDENT LIVING INFORMATION, DISCUSSED COSTS. PT REPORTS SHE WANTS AN APARTMENT AT [facility] OR [facility] AND NO WHERE ELSE. PT REPORTS SHE CANNOT AFFORD EITHER ONE, AND HAS INCOME OF $1,300 PER MONTH. PT KNOWS THAT EXCEPTIONS CAN BE MADE AND A MIRACLE CAN HAPPEN AND SHE MAY COULD GET IN. CM EXPLAINED THAT ALL ASSISTED LIVINGS ARE A BUSINESS AND THAT IF SHE CANNOT PAY THE RATE SHE WILL NOT GET IN. CM PROVIDED PT WITH A PLACE FOR MOM REFERRAL SERVICE. PT REPORTS IT TO BE OK TO DISCUSS DISCHARGE PLANNING WITH HER SON WELL TREATMENT INFORMATION. CM OFFERED TO CALL ROJELIO OF A PLACE FOR MOM AND HAVE ROJELIO CALL HER AND HER SON TO SEE WHAT IS AVAILABLE IN PT'S [place]. PT ACCEPTED. CM CALLED ROJELIO OF A PLACE FOR MOM, , PROVIDED REFERRAL INFORMATION. ROJELIO LATER CALLED AND INFORMED CM THAT PT DID NOT ANSWER THE PHONE IN THE ROOM BUT SHE CALLED PT'S SON, JV AND PT'S BUDGET DOES NOT ALLOW WHAT PT WANTS AND THAT ROJELIO AND PT'S SON WILL CONTINUE TO SEEK OPTIONS FOR PT. PT DENIES DISCHARGE NEEDS. PT PLANS TO DISCHARGE HOME WITH HER SON WHERE SHE REPORTS TO BE SAFE. PT'S SON AND ROJELIO OF A PLACE FOR MOM WILL CONTINUE TO SEEK INDEPENDENT OR ASSISTED LIVING FOR PT THAT SHE CAN ACTUALLY AFFORD, IF ANY. Commercial Leasing Agent: Gamaliel Riley DCPIA - Discharge Planning Initial Assessment Updated by [id number]: Gamaliel Riley on 10/27/18 5:43 pm * Is the patient Alert and Oriented? Yes * How many steps to enter\exit or inside your home? * PCP DR. SOLIMAN * [facility] [place] * Preadmission Environment Home with Family * ADLs Independent * Equipment Walker * Other Equipment DOES NOT USE ANY MEDICAL EQUIPMENT [employer] - MEDICAL EQUIPMENT PROVIDER * List name and contact numbers for known caregivers / representatives who currently or will assist patient after discharge: JV YU, SON, * Verbal permission to speak to the caregivers and representatives has been obtained from the patient. Yes * Community resources currently utilized None * Please name any agencies selected above. NONE * Additional services required to return to the preadmission environment? No * Can the patient safely return to the preadmission environment? Yes * Has this patient been hospitalized within the prior 30 days at any hospital? No Last DP export: 10/27/18 4:58 Patient Name: COLUMBA YU Page [id number] at 1656 All edits/amendments must be made on the electronic document DICTATION DATE: 10/31/181655 FORM STRIPPER: IAIN 10/31/181655 RPT#: [id number] DC DATE: STATUS: ADM IN [facility] [address] [place] [address] END OF REPORT
[2018-10-31 19:00] VITALS: BP 102/56
[2018-11-01] VITALS: BP 125/44
[2018-11-01 05:28] LABS: BASOPHILS 0.1 % (0-2); EOSINOPHILS 3.2 % (0-7); IMMATURE GRANULOCYTES 0.1 % (0-5); LYMPHOCYTES 21.4 % (15-50); MCH 30.9 pg (26.0-34.0); MCHC 31.7 g/dL (31.0-37.0); MCV 97.5 fL (80.0-100.0); MEAN PLATELET VOLUME 10.5 fL (7.4-10.4); MONOCYTES 8.8 % (2-11); NEUTROPHILS 66.4 % (40-80); PLATELET COUNT 316 10x3/uL (130-400); RBC 2.36 10x6/uL (4.00-5.40); RDW 13.5 % (11.5-14.5); WBC 7.5 10x3/uL (4.8-10.8)
[2018-11-01 05:35] LABS: HEMOGLOBIN 7.3 g/dL (12-16)
[2018-11-01 05:36] VITALS: BP 91/51
[2018-11-01 05:39] LABS: ALBUMIN 2.1 g/dL (3.4-5.0); ANION GAP 19.8 mmol/L (8-16); BILIRUBIN - TOTAL 0.19 mg/dL (0.2-1.3); CARBON DIOXIDE 20.2 mmol/L (21.0-32.0); CREATININE - SERUM 4.2 mg/dL (0.6-1.3); PHOSPHOROUS 6.9 mg/dL (2.5-4.9); PROTEIN - SERUM 6.8 g/dL (6.4-8.2)
[2018-11-01 05:42] LABS: CALCIUM 6.9 mg/dL (8.5-10.1)
--- NOTE | 2018-11-01 07:05 | NUR ---
RECEIVED REPORT. ASSUMED CARE OF AMILCAR. PT RESTING IN BED WITH EYES OPEN. RESP EVEN AND UNLABORED. ASSISTED PATIENT OOB TO RESTROOM AND THEN TO CHAIR AT BEDSIDE. CALL LIGHT WITHIN REACH. PATIENT ORIENTED AND REMEMBERED THIS WRITERS FIRST NAME SOON SHE SAW ME. NO DISTRESS.
[2018-11-01 07:14] LABS: FOLATE (FOLIC ACID) - SERUM 11.3 ng/mL (>3.0)
[2018-11-01 07:46] VITALS: BP 109/43
--- NOTE | 2018-11-01 09:34 | NUR ---
FSBS 243. 11 UNITS LEVEMIR ADMINISTERED ORDERED. NO DISTRESS. SITTING TO CHAIR AT BEDSIDE.
--- NOTE | 2018-11-01 11:40 | NUR ---
FSBS 251. 6 UNITS HUMALOG ADMINISTERED PER SLIDING SCALE. NO DISTRESS. PATIENT DAUGHTER IN [employer] AT BEDSIDE.
[2018-11-01 11:58] VITALS: BP 114/51
--- NOTE | 2018-11-01 12:30 | NUR ---
PATIENT GAVE CONSENT FOR THIS SHUTTLE DRIVER TO SPEAK TO HER DAUGHTER IN [place] [employer] AT THIS TIME ABOUT THE PLAN OF CARE FOR PATIENT. INFORMED GENESIS PER NEPHROLOGY THAT THEY WANT TO KEEP HER IN THE HOSPITAL UNTIL HER KIDNEY FUNCTION STARTS TO IMPROVE. ALSO DISCUSSED WITH HER THE OPTIONS THAT HAVE BEEN PROVIDED TO THE PATIENT AND PATIENT HAS REFUSED SUCH OPTIONS DIALYSIS, BLOOD TRANSFUSIONS, IV PLACEMENTS, ETC. FAMILY WANTS TO CONTINUE TO HONOR PATIENTS WISHES. GENESIS STATED THIS SAME SCENARIO HAPPENED THIS TIME LAST YEAR AND PATIENT WENT HOME WITH HER ON HOSPICE AND PATIENT IMPROVED AND HOSPICE DISCHARGED PATIENT FROM THEIR CARE AND NOW SHE IS HAVING A REPEAT OF WHAT WAS PREVIOUSLY EXPERIENCED.
[2018-11-01 15:13] VITALS: BP 96/35
--- NOTE | 2018-11-01 19:16 | NUR ---
ENTERED ROOM AT 1916 PATIENT WAS SITTING UP IN THE FLOOR BESIDE BED. NO ALARMS WERE TRADE EMBALMER LIGHT WAS NOT ON EXAM FOUND ONE LACERATION ABOVE LEFT EYE WOUND CLEANED AND BANDAGE APPLIED TO STOP ACTIVE BLEEDING... LCTA BOWEL SOUNDS X4 SKIN WARM AND DRY VS 139/45 71 97% 18.....ASSISTED UP AND TO BED SR UP AND CALL LIGHT IN PLACE ALERT AND ORIENTED X3.
--- NOTE | 2018-11-01 19:31 | NUR ---
SON NOTIFIED AT THIS TIME NEW SET OF VS 110/50 74 96% 16
--- NOTE | 2018-11-01 19:34 | NUR ---
DR. CALVO NOTIFIED OF PT INJURIES AT THIS TIME AND CT OF HEAD ORDERED
--- NOTE | 2018-11-01 19:40 | NUR ---
GONE TO CT BY WC.
--- NOTE | 2018-11-01 20:19 | NUR ---
ALERT AND ORIENTATED X3 HEAD CT DONE BANDAGE TO HEAD LACERATION IS IN PLACE, NO ACTIVE BLEEDING NOTED PUPILS ARE EQUAL AND REACTIVE TO LIGHT....VS 113/62 75 97% 16....SEARCHED AGAIN AND FOUND NO FARTHER INJURY... MOVES ALL EXTREMITIES WELL...BED DOWN CALL LIGHT IN REACH ITH SR UP X2 EDUCATED PT ON NEED TO CALL FOR ASSISTANCE
--- NOTE | 2018-11-01 20:41 | NUR ---
4 UNITS OF HUMILOG GIVEN PER BS OF 218...PT REMAINS ALERT AND ORIENTED PUPILS EQUAL AND REACTIVE TO LIGHT CALL LIGHT IS IN REACH.
--- NOTE | 2018-11-01 21:16 | NUR ---
CONTINUES AWAKE ALERT AND ORIENTED TIMES 3..PUPILS AT 5 EQUAL AND REACTIVE TO LIGHT...CALL LIGHT IN PLACE SR UP X2 BED IN LOW POSITION NO ACTIVE BLEEDING FROM LACERATION ABOVE LEFT EYE. 112/54 67 95% 16...COMPLAINT OF PAIN AT LAC SITE
--- NOTE | 2018-11-01 21:29 | NUR ---
TYLENOL ES X1 PER COMPLAINT OF PAIN ABOVE LEFT EYE
[2018-11-02 00:33] VITALS: BP 94/37
--- NOTE | 2018-11-02 00:53 | NUR ---
AT REST WITH EYES CLOSED ALARMS IN PLACE CALL LIGHT IN REACH BED LOW WITH SR TIMES 2
[2018-11-02 05:37] LABS: BASOPHILS 0.1 % (0-2); EOSINOPHILS 3.1 % (0-7); HEMATOCRIT 22.3 % (36.0-48.0); IMMATURE GRANULOCYTES 0.3 % (0-5); LYMPHOCYTES 20.4 % (15-50); MCH 31.2 pg (26.0-34.0); MCHC 32.3 g/dL (31.0-37.0); MCV 96.5 fL (80.0-100.0); MEAN PLATELET VOLUME 10.6 fL (7.4-10.4); MONOCYTES 10.1 % (2-11); PLATELET COUNT 303 10x3/uL (130-400); RBC 2.31 10x6/uL (4.00-5.40); RDW 13.4 % (11.5-14.5); WBC 7.4 10x3/uL (4.8-10.8)
[2018-11-02 05:57] LABS: ANION GAP 20.9 mmol/L (8-16); CARBON DIOXIDE 18.5 mmol/L (21.0-32.0); CREATININE - SERUM 4.5 mg/dL (0.6-1.3); PHOSPHOROUS 7.3 mg/dL (2.5-4.9); POTASSIUM - SERUM 5.4 mmol/L (3.5-5.1)
[2018-11-02 06:16] LABS: HEMOGLOBIN 7.2 g/dL (12-16)
--- NOTE | 2018-11-02 06:19 | NUR ---
HEMOGLOBIN OF 7.2 CALLED TO ME THIS AM ....NOTED 7.1 AND 7.3 READINGS THE LAST TWO DAYS WITH NO TREATMENT.
[2018-11-02 06:24] VITALS: BP 109/38
[2018-11-02 06:31] LABS: CALCIUM 6.7 mg/dL (8.5-10.1)
--- NOTE | 2018-11-02 06:36 | NUR ---
NOTIFIED DR CALVO OF CRITICAL HEMOGLOBIN AND CALCIUM THIS AM WITH NO NEW ORDERS
[2018-11-02 07:32] VITALS: BP 102/39
--- NOTE | 2018-11-02 07:44 | NUR ---
ASSESSMENT DONE. DENIES NEEDS.
--- NOTE | 2018-11-02 08:55 | NUR ---
SECOND GRADE TEACHER AT ASSISTING TO BR. WILL CONT. PLAN OF CARE.
[2018-11-02 11:30] VITALS: BP 119/42
--- NOTE | 2018-11-02 13:56 | MORECARE ---
CASE MANAGEMENT DISCHARGE SUMMARY PATIENT: COLUMBA YU UNIT: [id number] ADM DATE: 10/27/18 AGE: 83 : 34 SEX: F ROOM/BED: D.4010 AUTHOR: JUSTYNADOC PHYSICIAN: REFERRING PHYSICIAN: TIMOTHY SOLIMAN MD DATE OF SERVICE: 11/02/18 Discharge Plan Patient Name: COLUMBA YU Facility: [facility]:[place] : 1935 Planned Disposition: Residential Facility Anticipated Discharge Date: 11/03/18 Discharge Date: Expected LOS: 7 Initial Reviewer: [id number] Initial Review Date: 10/27/2018 Generated: 11/02/18 2:56 pm Comments DCP- Discharge Planning Updated by [id number]: Gamaliel Riley on 10/31/18 3:[address] Patient Name: COLUMBA YU Encounter No: [id number] : 1935 Primary Insurance: MEDICARE A & B Anticipated DC Date: 10-28-2018 Planned Disposition: Home DCP follow-up note: CM SPOKE TO DR. REESE WHO REPORTS PT'S RENAL FUNCTIONING APPEARS TO BE DECLINING. CM SPOKE TO PT IN ROOM REGARDING DISCHARGE PLANNING AND NEEDS. PT REPORTED TO CM THAT SHE THOUGHT SHE WOULD HAVE ALREADY BEEN DISCHARGED HOME AND DID NOT EXPECT TO STILL BE IN THE HOSPITAL. CM ASKED ABOUT WHAT THE DOCTORS HAVE BEEN TELLING HER. PT REPORTS SHE SPOKE TO DR. REESE AND UNDERSTANDS HER KINDEY CONDITION AND IF IT COMES TO NEEDING DIALYSIS, PT STATES SHE WILL NOT DO THAT. PT REPORTS THAT SHE UNDERSTANDS THAT IT WOULD MEAN SHE WOULD , BUT SHE IS COMFORABLE WITH THIS DECISION AND ALL OF HER ARRANGMENTS ARE MADE. PT DENIES NEEDS OF CM AT THIS TIME AND REPORTS PLAN TO DISCHARGE HOME WITH HER SON, BUT STATES SHE DOES NOT WANT TO BE A BURDEN TO ANYONE. IF PT NEEDS DIALYSIS, AT THIS TIME, SHE INDICATED TO CM THAT SHE WOULD NOT CONSENT TO IT. PT DENIES DISCHARGE NEEDS. PT CONTINUES TO PLAN TO DISCHARGE HOME WITH HER SON. CM WILL CONTINUE TO FOLLOW AND ASSIST NEEDED. Microbiology Supervisor: Gamaliel Riley DCP- Discharge Planning Updated by [id number]: Gamaliel Riley on 12/27/18 4:[address] Patient Name: COLUMBA YU Admission Status: Urgent Accout number: [id number] Admission Date: 10-27-2018 : 1935 Admission Diagnosis: Attending: JOURDAN, Current LOS: 1 Anticipated DC Date: 10-28-2018 Planned Disposition: Home Primary Insurance: MEDICARE A & B Discharge Planning Comments: CM RECEIVED REQUEST TO PROVIDE PT WITH ASSISTED LIVING INFORMATION. CM MET WITH PT IN ROOM TO DISCUSS DISCHARGE PLANNING AND NEEDS. PT REPORTS LIVING AT HOME INDEPENDENTLY WITH HER ADULT SON IN HIS HOME. PT REPORTS SHE HAS HER HOME NEXT DOOR TO HER SON'S ON HIS PROPERTY AND SIGNED EVERYTHING OVER TO HIM AT THE ASSEMBLY RIVETER'S OFFICE. PT REPORTS HER GRANDDAUGHTER IS LIVING IN HER (PT'S) HOME AND PT IS LIVING IN A ROOM IN HER SON'S HOME NOW. PT REPORT ALL OF HER NICE BELONGINGS AND THINGS ARE IN HER HOME AND NONE WILL BE MOVED UNTIL SHE DIES. PT REPORTS HER SON WILL GET HER HOUSE AND HER DAUGHTER WILL GET EVERYTHING OUT OF THE HOUSE, EVEN THOUGH SHE DOES NOT WANT IT. PT HAS A WALKER THAT SHE DOES NOT USE, FROM [employer]. PT HAS NO OUTSIDE SERVICES ASSISTING IN THE HOME. CM DISCUSSED AVAILABILITY OF HOME HEALTH, REHAB SERVICES AND MEDICAL EQUIPMENT. PT DENIES DISCHARGE NEEDS, REPORTS HER SON WILL PICK HER UP FOR DISCHARGE HOME CM PROVIDED ASSISTED AND INDEPENDENT LIVING INFORMATION, DISCUSSED COSTS. PT REPORTS SHE WANTS AN APARTMENT AT [facility] OR [facility] AND NO WHERE ELSE. PT REPORTS SHE CANNOT AFFORD EITHER ONE, AND HAS INCOME OF $1,300 PER MONTH. PT KNOWS THAT EXCEPTIONS CAN BE MADE AND A MIRACLE CAN HAPPEN AND SHE MAY COULD GET IN. CM EXPLAINED THAT ALL ASSISTED LIVINGS ARE A BUSINESS AND THAT IF SHE CANNOT PAY THE RATE SHE WILL NOT GET IN. CM PROVIDED PT WITH A PLACE FOR MOM REFERRAL SERVICE. PT REPORTS IT TO BE OK TO DISCUSS DISCHARGE PLANNING WITH HER SON WELL TREATMENT INFORMATION. CM OFFERED TO CALL ROJELIO OF A PLACE FOR MOM AND HAVE ROJELIO CALL HER AND HER SON TO SEE WHAT IS AVAILABLE IN PT'S [place]. PT ACCEPTED. CM CALLED ROJELIO OF A PLACE FOR MOM, , PROVIDED REFERRAL INFORMATION. ROJELIO LATER CALLED AND INFORMED CM THAT PT DID NOT ANSWER THE PHONE IN THE ROOM BUT SHE CALLED PT'S SON, JV AND PT'S BUDGET DOES NOT ALLOW WHAT PT WANTS AND THAT ROJELIO AND PT'S SON WILL CONTINUE TO SEEK OPTIONS FOR PT. PT DENIES DISCHARGE NEEDS. PT PLANS TO DISCHARGE HOME WITH HER SON WHERE SHE REPORTS TO BE SAFE. PT'S SON AND ROJELIO OF A PLACE FOR MOM WILL CONTINUE TO SEEK INDEPENDENT OR ASSISTED LIVING FOR PT THAT SHE CAN ACTUALLY AFFORD, IF ANY. Microbiology Supervisor: Gamaliel Riley DCPIA - Discharge Planning Initial Assessment Updated by [id number]: Gamaliel Riley on 10/27/18 5:43 pm * Is the patient Alert and Oriented? Yes * How many steps to enter\exit or inside your home? * PCP DR. SOLIMAN * Pharm[facility] [place] * Preadmission Environment Home with Family * ADLs Independent * Equipment Walker * Other Equipment DOES NOT USE ANY MEDICAL EQUIPMENT [employer] - MEDICAL EQUIPMENT PROVIDER * List name and contact numbers for known caregivers / representatives who currently or will assist patient after discharge: JV YU, SON, * Verbal permission to speak to the caregivers and representatives has been obtained from the patient. Yes * Community resources currently utilized None * Please name any agencies selected above. NONE * Additional services required to return to the preadmission environment? No * Can the patient safely return to the preadmission environment? Yes * Has this patient been hospitalized within the prior 30 days at any hospital? No External Providers External Provider: [facility] Next Contact Date: 11/02/2018 Service Request Date: Service Type: Resolution: Reviewer: Comments: Last DP export: 10/31/18 3:56 Patient Name: COLUMBA YU Page 94446 at 1356 All edits/amendments must be made on the electronic document DICTATION DATE: 11/02/18 1356 CLIMBING GUIDE: IAIN 11/02/18 1356 RPT#: [id number] [place] DATE: STATUS: ADM IN [facility] [address] [place] [address] END OF REPORT
--- NOTE | 2018-11-02 14:40 | MORECARE ---
CASE MANAGEMENT DISCHARGE SUMMARY PATIENT: COLUMBA YU UNIT: [id number] ADM DATE: 10/27/18 AGE: 83 : 34 SEX: F ROOM/BED: D.3478 AUTHOR: JUSTYNA,DOC PHYSICIAN: REFERRING PHYSICIAN: TIMOTHY SOLIMAN MD DATE OF SERVICE: 11/02/18 Discharge Plan Patient Name: COLUMBA YU Facility: [facility]:[place] : 1935 Planned Disposition: Residential Facility Anticipated Discharge Date: 11/03/18 Discharge Date: Expected LOS: 7 Initial Reviewer: [id number] Initial Review Date: 10/27/2018 Generated: 11/02/18 3:40 pm Comments DCP- Discharge Planning Updated by [id number]: Gamaliel Riley on 11/02/18 1:[address] Patient Name: COLUMBA YU Admission Status: Urgent Accout number: [id number] Admission Date: 10-27-2018 : 1935 Admission Diagnosis:SHORTNESS OF BREATH Attending: JOURDAN Current LOS: 6 Anticipated DC Date: 11-03-2018 Planned Disposition: Residential Facility Primary Insurance: MEDICARE A & B PLANNED EXTERNAL PROVIDER: Discharge Planning Comments: CM RECEIVED ORDER FOR CONSULT OF HOSPICE AT HOME. CM MET WITH PT AND HER DAUGHTER IN LAW IN ROOM. PT INFORMED CM THAT IT IS OK TO DISCUSS ANYTHING REGARDING DISCHARGE PLANNING, CARE AND TREATMENT WITH HER DAUGHTER IN LAW. CM DISCUSSED HOSPICE ORDER AND AVAILABILITY OF HOSPICE. PT DECLINED HOSPICE AND DOES NOT WANT TO TALK TO THEM. PT DECLINED INFORMATION ON HOSPICE PROVIDERS AND ABOUT HOSPICE SERVICES. PT'S DAUGHTER IN LAW INFORMED PT THAT SHE IS NOT ABLE TO TAKE CARE OF PT AT HOME AND PT NEEDS TO CONSIDER GOING TO A NURSING FACILITY. PT STATES SHE WILL GO FOR REHAB ONLY WITH PLAN TO RETURN HOME. CM DISCUSSED PT'S CONTINUED DECLINE AND REFUSAL OF IV FLUIDS AND BLOOD. PT STATES SHE WILL ACCEPT THE IV BLOOD AND FLUIDS BUT WILL NOT CONSENT TO DIALYSIS. CM EXPLAINED THAT PT MAY WANT REHAB BUT MAY NOT BE ABLE TO RETURN HOME AND MAY REQUIRE PACKAGE DESIGNER CARE, COMFORT CARE OR HOSPICE CARE IN A [facility]. CM EXPLAINED THAT MEDICARE WILL NOT PAY FOR ROOM AND BOARD IF PT IS RECEIVING HOSPICE IN THE [facility]. PT AND DAUGHTER IN LAW REPORT UNDERSTANDING. PT STATES SHE WILL GO TO REHAB ONLY AND WANTS REFERRED TO [facility]. CHOICE SIGNED. IMPORTANT MESSAGE FROM MEDICARE PROVIDED AND EXPLAINED. CM CALLED TALI OF [facility], , PROVIDED REFERRAL INFORMATION AND FAXED REHAB REFERRAL TO [facility] AT [phone]. CM WAITING ON ADMISSION DETERMINATION FROM [facility] FOR REHAB PLACEMENT. PT DECLINED HOSPICE. Recycle Driver: Gamaliel Riley DCP- Discharge Planning Updated by [id number]: Gamaliel Riley on 10/31/18 3:[address] Patient Name: COLUMBA YU Encounter No: [id number] : 1935 Primary Insurance: MEDICARE A & B Anticipated DC Date: 10-28-2018 Planned Disposition: Home DCP follow-up note: CM SPOKE TO DR. REESE WHO REPORTS PT'S RENAL FUNCTIONING APPEARS TO BE DECLINING. CM SPOKE TO PT IN ROOM REGARDING DISCHARGE PLANNING AND NEEDS. PT REPORTED TO CM THAT SHE THOUGHT SHE WOULD HAVE ALREADY BEEN DISCHARGED HOME AND DID NOT EXPECT TO STILL BE IN THE HOSPITAL. CM ASKED ABOUT WHAT THE DOCTORS HAVE BEEN TELLING HER. PT REPORTS SHE SPOKE TO DR. REESE AND UNDERSTANDS HER KINDEY CONDITION AND IF IT COMES TO NEEDING DIALYSIS, PT STATES SHE WILL NOT DO THAT. PT REPORTS THAT SHE UNDERSTANDS THAT IT WOULD MEAN SHE WOULD , BUT SHE IS COMFORABLE WITH THIS DECISION AND ALL OF HER ARRANGMENTS ARE MADE. PT DENIES NEEDS OF CM AT THIS TIME AND REPORTS PLAN TO DISCHARGE HOME WITH HER SON, BUT STATES SHE DOES NOT WANT TO BE A BURDEN TO ANYONE. IF PT NEEDS DIALYSIS, AT THIS TIME, SHE INDICATED TO CM THAT SHE WOULD NOT CONSENT TO IT. PT DENIES DISCHARGE NEEDS. PT CONTINUES TO PLAN TO DISCHARGE HOME WITH HER SON. CM WILL CONTINUE TO FOLLOW AND ASSIST NEEDED. Recycle Driver: Gamaliel Riley DCP- Discharge Planning Updated by [id number]: Gamaliel Riley on 10/27/18 4:[address] Patient Name: COLUMBA YU Admission Status: Urgent Accout number: [id number] Admission Date: 10-27-2018 : 1935 Admission Diagnosis: Attending: JOURDAN, Current LOS: 1 Anticipated DC Date: 10-28-2018 Planned Disposition: Home Primary Insurance: MEDICARE A & B Discharge Planning Comments: CM RECEIVED REQUEST TO PROVIDE PT WITH ASSISTED LIVING INFORMATION. CM MET WITH PT IN ROOM TO DISCUSS DISCHARGE PLANNING AND NEEDS. PT REPORTS LIVING AT HOME INDEPENDENTLY WITH HER ADULT SON IN HIS HOME. PT REPORTS SHE HAS HER HOME NEXT DOOR TO HER SON'S ON HIS PROPERTY AND SIGNED EVERYTHING OVER TO HIM AT THE RFID SYSTEMS ENGINEER'S OFFICE. PT REPORTS HER GRANDDAUGHTER IS LIVING IN HER (PT'S) HOME AND PT IS LIVING IN A ROOM IN HER SON'S HOME NOW. PT REPORT ALL OF HER NICE BELONGINGS AND THINGS ARE IN HER HOME AND NONE WILL BE MOVED UNTIL SHE DIES. PT REPORTS HER SON WILL GET HER HOUSE AND HER DAUGHTER WILL GET EVERYTHING OUT OF THE HOUSE, EVEN THOUGH SHE DOES NOT WANT IT. PT HAS A WALKER THAT SHE DOES NOT USE, FROM [employer]. PT HAS NO OUTSIDE SERVICES ASSISTING IN THE HOME. CM DISCUSSED AVAILABILITY OF HOME HEALTH, REHAB SERVICES AND MEDICAL EQUIPMENT. PT DENIES DISCHARGE NEEDS, REPORTS HER SON WILL PICK HER UP FOR DISCHARGE HOME CM PROVIDED ASSISTED AND INDEPENDENT LIVING INFORMATION, DISCUSSED COSTS. PT REPORTS SHE WANTS AN APARTMENT AT [facility] OR [facility] AND NO WHERE ELSE. PT REPORTS SHE CANNOT AFFORD EITHER ONE, AND HAS INCOME OF $1,300 PER MONTH. PT KNOWS THAT EXCEPTIONS CAN BE MADE AND A MIRACLE CAN HAPPEN AND SHE MAY COULD GET IN. CM EXPLAINED THAT ALL ASSISTED LIVINGS ARE A BUSINESS AND THAT IF SHE CANNOT PAY THE RATE SHE WILL NOT GET IN. CM PROVIDED PT WITH A PLACE FOR MOM REFERRAL SERVICE. PT REPORTS IT TO BE OK TO DISCUSS DISCHARGE PLANNING WITH HER SON WELL TREATMENT INFORMATION. CM OFFERED TO CALL ROJELIO OF A PLACE FOR MOM AND HAVE ROJELIO CALL HER AND HER SON TO SEE WHAT IS AVAILABLE IN PT'S [place]. PT ACCEPTED. CM CALLED ROJELIO OF A PLACE FOR MOM, , PROVIDED REFERRAL INFORMATION. ROJELIO LATER CALLED AND INFORMED CM THAT PT DID NOT ANSWER THE PHONE IN THE ROOM BUT SHE CALLED PT'S SONJV AND PT'S BUDGET DOES NOT ALLOW WHAT PT WANTS AND THAT ROJELIO AND PT'S SON WILL CONTINUE TO SEEK OPTIONS FOR PT. PT DENIES DISCHARGE NEEDS. PT PLANS TO DISCHARGE HOME WITH HER SON WHERE SHE REPORTS TO BE SAFE. PT'S SON AND ROJELIO OF A PLACE FOR MOM WILL CONTINUE TO SEEK INDEPENDENT OR ASSISTED LIVING FOR PT THAT SHE CAN ACTUALLY AFFORD, IF ANY. Recycle Driver: Gamaliel Riley DCPIA - Discharge Planning Initial Assessment Updated by [id number]: Gamaliel Riley on 10/27/18 5:43 pm * Is the patient Alert and Oriented? Yes * How many steps to enter\exit or inside your home? * PCP DR. SOLIMAN * [facility] [place] * Preadmission Environment Home with Family * ADLs Independent * Equipment Walker * Other Equipment DOES NOT USE ANY MEDICAL EQUIPMENT [employer] - MEDICAL EQUIPMENT PROVIDER * List name and contact numbers for known caregivers / representatives who currently or will assist patient after discharge: JV YU, SON, * Verbal permission to speak to the caregivers and representatives has been obtained from the patient. Yes * Community resources currently utilized None * Please name any agencies selected above. NONE * Additional services required to return to the preadmission environment? No * Can the patient safely return to the preadmission environment? Yes * Has this patient been hospitalized within the prior 30 days at any hospital? No Coverage Notice Reviewer: [id number] Danita Riley Notice Issued Date-Time: 11/02/2018 12:50 Notice Type: Patient Choice Letter Notice Delivered To: Patient Relationship to Patient: Pipe Welder Name: Delivery Method: HAND - Hand Delivered Karla Days: Prior Verbal Notification: Recipient Understood Notice: Yes Recipient Signature: Yes Med Rec Note Co-signed by Attending: Coverage Notice Comment: [facility] Reviewer: [id number] Danita Riley Notice Issued Date-Time: 11/02/2018 12:50 Notice Type: IM Discharge Notice Notice Delivered To: Patient Relationship to Patient: Pipe Welder Name: Delivery Method: HAND - Hand Delivered Karla Days: Prior Verbal Notification: Recipient Understood Notice: Yes Recipient Signature: Yes Med Rec Note Co-signed by Attending: Coverage Notice Comment: Last DP export: 11/02/18 12:56 pm Patient Name: COLUMBA YU Page [id number] at 1440 All edits/amendments must be made on the electronic document DICTATION DATE: 11/02/18 1440 HAND DECORATOR: IAIN 11/02/18 1440 RPT#: [id number] DC DATE: STATUS: ADM IN [facility] [address] [place] [address] END OF REPORT
[2018-11-02 15:01] VITALS: BP 116/39
--- NOTE | 2018-11-02 17:10 | NUR ---
ASSESSMENT DONE. DENIES NEEDS.
--- NOTE | 2018-11-02 20:36 | NUR ---
HS MEDS GIVEN WITH FRESH ICE WATER. BS 285, COVERED PER S/S. REMINDED PT TO USE CL FOR ASSISTANCE, PT STATED UNDERSTANDING. GRAND DAUGHTER AT BED SIDE.
[2018-11-02 20:54] VITALS: BP 111/53
--- NOTE | 2018-11-02 21:06 | NUR ---
PRBCs FINISHED INFUSING, LINE FLUSHING WITH NS. NO S/S ADVERSE REACTION NOTED. UP TO BR WITH 2 PERSON ASSIST.
[2018-11-03] VITALS: BP 94/55
[2018-11-03 05:08] VITALS: BP 110/44
--- NOTE | 2018-11-03 07:25 | NUR ---
ASSESSMENT COMPLETED.ALERT AND ORIENTED. PT HAS A LACERATION. OVER LEFT EYE. AREA BRUISED.STARLA ALARM TO CHAIR AND BED. PT UP IN CHAIR AT PRESENT TIME. PT IS A DNR.UP WITH ASSIST.
[2018-11-03 09:08] VITALS: BP 152/80
--- NOTE | 2018-11-03 09:54 | MORECARE ---
CASE MANAGEMENT DISCHARGE SUMMARY PATIENT: COLUMBA YU UNIT: [id number] ADM DATE: 10/27/18 AGE: 83 : 34 SEX: F ROOM/BED: D.6145 AUTHOR: JUSTYNA,DOC PHYSICIAN: REFERRING PHYSICIAN: TIMOTHY SOLIMAN MD DATE OF SERVICE: 11/03/18 Discharge Plan Patient Name: COLUMBA YU Facility: [facility]:[place] : 1935 Planned Disposition: Senior Living Facility Anticipated Discharge Date: 11/03/18 Discharge Date: Expected LOS: 7 Initial Reviewer: [id number] Initial Review Date: 10/27/2018 Generated: 11/03/18 10:54 am Comments DCP- Discharge Planning Updated by [id number]: Gamaliel Riley on 11/02/18 1:[address] Patient Name: COLUMBA YU Admission Status: Urgent Accout number: [id number] Admission Date: 10-27-2018 : 1935 Admission Diagnosis:SHORTNESS OF BREATH Attending: JOURDAN Current LOS: 6 Anticipated DC Date: 11-03-2018 Planned Disposition: Senior Living Facility Primary Insurance: MEDICARE A & B PLANNED EXTERNAL PROVIDER: Discharge Planning Comments: CM RECEIVED ORDER FOR CONSULT OF HOSPICE AT HOME. CM MET WITH PT AND HER DAUGHTER IN LAW IN ROOM. PT INFORMED CM THAT IT IS OK TO DISCUSS ANYTHING REGARDING DISCHARGE PLANNING, CARE AND TREATMENT WITH HER DAUGHTER IN LAW. CM DISCUSSED HOSPICE ORDER AND AVAILABILITY OF HOSPICE. PT DECLINED HOSPICE AND DOES NOT WANT TO TALK TO THEM. PT DECLINED INFORMATION ON HOSPICE PROVIDERS AND ABOUT HOSPICE SERVICES. PT'S DAUGHTER IN LAW INFORMED PT THAT SHE IS NOT ABLE TO TAKE CARE OF PT AT HOME AND PT NEEDS TO CONSIDER GOING TO A NURSING FACILITY. PT STATES SHE WILL GO FOR REHAB ONLY WITH PLAN TO RETURN HOME. CM DISCUSSED PT'S CONTINUED DECLINE AND REFUSAL OF IV FLUIDS AND BLOOD. PT STATES SHE WILL ACCEPT THE IV BLOOD AND FLUIDS BUT WILL NOT CONSENT TO DIALYSIS. CM EXPLAINED THAT PT MAY WANT REHAB BUT MAY NOT BE ABLE TO RETURN HOME AND MAY REQUIRE HOTEL OPERATIONS MANAGER CARE, COMFORT CARE OR HOSPICE CARE IN A INTERMEDIATE. CM EXPLAINED THAT MEDICARE WILL NOT PAY FOR ROOM AND BOARD IF PT IS RECEIVING HOSPICE IN THE INTERMEDIATE. PT AND DAUGHTER IN LAW REPORT UNDERSTANDING. PT STATES SHE WILL GO TO REHAB ONLY AND WANTS REFERRED TO [facility]. CHOICE SIGNED. IMPORTANT MESSAGE FROM MEDICARE PROVIDED AND EXPLAINED. CM CALLED TALI OF [facility], , PROVIDED REFERRAL INFORMATION AND FAXED REHAB REFERRAL TO [facility] AT [phone]. CM WAITING ON ADMISSION DETERMINATION FROM [facility] FOR REHAB PLACEMENT. PT DECLINED HOSPICE. Biometrics Technician: Gamaliel Riley DCP- Discharge Planning Updated by [id number]: Gamaliel Riley on 10/31/18 3:[address] Patient Name: COLUMBA YU Encounter No: [id number] : 1935 Primary Insurance: MEDICARE A & B Anticipated DC Date: 10-28-2018 Planned Disposition: Home DCP follow-up note: CM SPOKE TO DR. REESE WHO REPORTS PT'S RENAL FUNCTIONING APPEARS TO BE DECLINING. CM SPOKE TO PT IN ROOM REGARDING DISCHARGE PLANNING AND NEEDS. PT REPORTED TO CM THAT SHE THOUGHT SHE WOULD HAVE ALREADY BEEN DISCHARGED HOME AND DID NOT EXPECT TO STILL BE IN THE HOSPITAL. CM ASKED ABOUT WHAT THE DOCTORS HAVE BEEN TELLING HER. PT REPORTS SHE SPOKE TO DR. REESE AND UNDERSTANDS HER KINDEY CONDITION AND IF IT COMES TO NEEDING DIALYSIS, PT STATES SHE WILL NOT DO THAT. PT REPORTS THAT SHE UNDERSTANDS THAT IT WOULD MEAN SHE WOULD , BUT SHE IS COMFORABLE WITH THIS DECISION AND ALL OF HER ARRANGMENTS ARE MADE. PT DENIES NEEDS OF CM AT THIS TIME AND REPORTS PLAN TO DISCHARGE HOME WITH HER SON, BUT STATES SHE DOES NOT WANT TO BE A BURDEN TO ANYONE. IF PT NEEDS DIALYSIS, AT THIS TIME, SHE INDICATED TO CM THAT SHE WOULD NOT CONSENT TO IT. PT DENIES DISCHARGE NEEDS. PT CONTINUES TO PLAN TO DISCHARGE HOME WITH HER SON. CM WILL CONTINUE TO FOLLOW AND ASSIST NEEDED. Biometrics Technician: Gamaliel Riley DCP- Discharge Planning Updated by [id number]: Gamaliel Riley on 10/27/18 4:[address] Patient Name: COLUMBA YU Admission Status: Urgent Accout number: [id number] Admission Date: 10-27-2018 : 1935 Admission Diagnosis: Attending: JOURDAN, Current LOS: 1 Anticipated DC Date: 10-28-2018 Planned Disposition: Home Primary Insurance: MEDICARE A & B Discharge Planning Comments: CM RECEIVED REQUEST TO PROVIDE PT WITH ASSISTED LIVING INFORMATION. CM MET WITH PT IN ROOM TO DISCUSS DISCHARGE PLANNING AND NEEDS. PT REPORTS LIVING AT HOME INDEPENDENTLY WITH HER ADULT SON IN HIS HOME. PT REPORTS SHE HAS HER HOME NEXT DOOR TO HER SON'S ON HIS PROPERTY AND SIGNED EVERYTHING OVER TO HIM AT THE CATTLE CARE WORKER'S OFFICE. PT REPORTS HER GRANDDAUGHTER IS LIVING IN HER (PT'S) HOME AND PT IS LIVING IN A ROOM IN HER SON'S HOME NOW. PT REPORT ALL OF HER NICE BELONGINGS AND THINGS ARE IN HER HOME AND NONE WILL BE MOVED UNTIL SHE DIES. PT REPORTS HER SON WILL GET HER HOUSE AND HER DAUGHTER WILL GET EVERYTHING OUT OF THE HOUSE, EVEN THOUGH SHE DOES NOT WANT IT. PT HAS A WALKER THAT SHE DOES NOT USE, FROM [employer]. PT HAS NO OUTSIDE SERVICES ASSISTING IN THE HOME. CM DISCUSSED AVAILABILITY OF HOME HEALTH, REHAB SERVICES AND MEDICAL EQUIPMENT. PT DENIES DISCHARGE NEEDS, REPORTS HER SON WILL PICK HER UP FOR DISCHARGE HOME CM PROVIDED ASSISTED AND INDEPENDENT LIVING INFORMATION, DISCUSSED COSTS. PT REPORTS SHE WANTS AN APARTMENT AT [facility] OR [facility] AND NO WHERE ELSE. PT REPORTS SHE CANNOT AFFORD EITHER ONE, AND HAS INCOME OF $1,300 PER MONTH. PT KNOWS THAT EXCEPTIONS CAN BE MADE AND A MIRACLE CAN HAPPEN AND SHE MAY COULD GET IN. CM EXPLAINED THAT ALL ASSISTED LIVINGS ARE A BUSINESS AND THAT IF SHE CANNOT PAY THE RATE SHE WILL NOT GET IN. CM PROVIDED PT WITH A PLACE FOR MOM REFERRAL SERVICE. PT REPORTS IT TO BE OK TO DISCUSS DISCHARGE PLANNING WITH HER SON WELL TREATMENT INFORMATION. CM OFFERED TO CALL ROJELIO OF A PLACE FOR MOM AND HAVE ROJELIO CALL HER AND HER SON TO SEE WHAT IS AVAILABLE IN PT'S [place]. PT ACCEPTED. CM CALLED ROJELIO OF A PLACE FOR MOM, , PROVIDED REFERRAL INFORMATION. ROJELIO LATER CALLED AND INFORMED CM THAT PT DID NOT ANSWER THE PHONE IN THE ROOM BUT SHE CALLED PT'S SONJV AND PT'S BUDGET DOES NOT ALLOW WHAT PT WANTS AND THAT ROJELIO AND PT'S SON WILL CONTINUE TO SEEK OPTIONS FOR PT. PT DENIES DISCHARGE NEEDS. PT PLANS TO DISCHARGE HOME WITH HER SON WHERE SHE REPORTS TO BE SAFE. PT'S SON AND ROJELIO OF A PLACE FOR MOM WILL CONTINUE TO SEEK INDEPENDENT OR ASSISTED LIVING FOR PT THAT SHE CAN ACTUALLY AFFORD, IF ANY. Biometrics Technician: Gamaliel Riley DCPIA - Discharge Planning Initial Assessment Updated by [id number]: Gamaliel Riley on 10/27/18 5:43 pm * Is the patient Alert and Oriented? Yes * How many steps to enter\exit or inside your home? * PCP DR. SOLIMAN * Pharmacy [facility] [place] * Preadmission Environment Home with Family * ADLs Independent * Equipment Walker * Other Equipment DOES NOT USE ANY MEDICAL EQUIPMENT [employer] - MEDICAL EQUIPMENT PROVIDER * List name and contact numbers for known caregivers / representatives who currently or will assist patient after discharge: JV YU, SON, * Verbal permission to speak to the caregivers and representatives has been obtained from the patient. Yes * Community resources currently utilized None * Please name any agencies selected above. NONE * Additional services required to return to the preadmission environment? No * Can the patient safely return to the preadmission environment? Yes * Has this patient been hospitalized within the prior 30 days at any hospital? No Coverage Notice Reviewer: [id number] Danita Riley Notice Issued Date-Time: 11/02/2018 12:50 Notice Type: Patient Choice Letter Notice Delivered To: Patient Relationship to Patient: Bar Assistant Name: Delivery Method: HAND - Hand Delivered Karla Days: Prior Verbal Notification: Recipient Understood Notice: Yes Recipient Signature: Yes Med Rec Note Co-signed by Attending: Coverage Notice Comment: [facility] Reviewer: [id number] Danita Riley Notice Issued Date-Time: 11/02/2018 12:50 Notice Type: IM Discharge Notice Notice Delivered To: Patient Relationship to Patient: Bar Assistant Name: Delivery Method: HAND - Hand Delivered Karla Days: Prior Verbal Notification: Recipient Understood Notice: Yes Recipient Signature: Yes Med Rec Note Co-signed by Attending: Coverage Notice Comment: Last DP export: 11/02/18 1:40 pm Patient Name: COLUMBA YU Page [id number] at 0954 All edits/amendments must be made on the electronic document DICTATION DATE: 11/03/1854 SAMPLE ROOM SUPERVISOR: IAIN 11/03/1854 RPT#: [id number] DC DATE: STATUS: ADM IN [facility] [address] [place] [address] END OF REPORT
[2018-11-03 10:03] LABS: ANION GAP 20.7 mmol/L (8-16); CALCIUM 7.2 mg/dL (8.5-10.1); CARBON DIOXIDE 18.7 mmol/L (21.0-32.0); CREATININE - SERUM 4.6 mg/dL (0.6-1.3); POTASSIUM - SERUM 5.4 mmol/L (3.5-5.1)
--- NOTE | 2018-11-03 10:28 | MORECARE ---
CASE MANAGEMENT DISCHARGE SUMMARY PATIENT: COLUMBA YU UNIT: [id number] ADM DATE: 10/27/18 AGE: 83 : 34 SEX: F ROOM/BED: D.6620 AUTHOR: JUSTYNA,DOC PHYSICIAN: REFERRING PHYSICIAN: TIMOTHY SOLIMAN MD DATE OF SERVICE: 11/03/18 Discharge Plan Patient Name: COLUMBA YU Facility: [facility]:[place] : 1935 Planned Disposition: Halfway Facility Anticipated Discharge Date: 11/03/18 Discharge Date: Expected LOS: 7 Initial Reviewer: [id number] Initial Review Date: 10/27/2018 Generated: 11/03/18 11:27 am Comments DCP- Discharge Planning Updated by [id number]: Gamaliel Riley on 11/03/18 9:[address] Patient Name: COLUMBA YU Encounter No: [id number] : 1935 Primary Insurance: MEDICARE A & B Anticipated DC Date: 11-03-2018 Planned Disposition: Halfway Facility External Planned Provider: [facility], UNKNOWN BED STATUS DCP follow-up note: CM RECEIVED CALL FROM TALI OF [facility], , THEY WILL ACCEPT TO TRY REHAB AT PT'S REQUEST AND CAN TRANSITION TO COMFORT CARE LONG FAMILY IS WILLING TO MAKE FINANCIAL ARRAGEMENTS FOR ROOM AND BOARD. [facility] CAN ANIMAL STUNNER PT AT 1130AM TODAY. CM NOTIFIED PT WHO IS IN AGREEMENT WITH PLAN. PT'S DAUGHTER IN LAW'S SISTER ASSISTED WITH FILLING OUT MEDICAL POWER OF LIVE TRUCK OPERATOR AT PT'S REQUEST. PT COMPLETED MEDICAL POWER OF LIVE TRUCK OPERATOR FOR HER SON WHO NEEDS TO SIGN ACCEPTANCE. CM NOTIFIED SANDEE PORTER. CM INFORMED THAT DR. CALVO WILL NOT DISCHARGE PT TO REHAB AND THAT IF DISCHARGED, IT WILL NEED TO BE WITH HOSPICE CARE. SANDEE PORTER INFORMED CM THAT DR. CALVO IS ATTEMPTING TO CALL AND SPEAK TO PT'S SON REGARDING PLAN AND TREATMENT. CM CALLED [facility], SPOKE TO TALI AND CANCELLED TRANSPORT ARRANGEMENTS. CM WAITING FOR DOCTOR AND PT'S SON TO DISCUSS PT'S CARE AND TREATMENT PLAN. CM TO CONTINUE TO FOLLOW AND ASSIST NEEDED. Gamaliel Riley, CASE MANAGEMENT DCP- Discharge Planning Updated by [id number]: Gamaliel Riley on 11/02/18 1:[address] Patient Name: COLUMBA YU Admission Status: Urgent Accout number: [id number] Admission Date: 10-27-2018 : 1935 Admission Diagnosis:SHORTNESS OF BREATH Attending: JOURDAN Current LOS: 6 Anticipated DC Date: 11-03-2018 Planned Disposition: Halfway Facility Primary Insurance: MEDICARE A & B PLANNED EXTERNAL PROVIDER: Discharge Planning Comments: CM RECEIVED ORDER FOR CONSULT OF HOSPICE AT HOME. CM MET WITH PT AND HER DAUGHTER IN LAW IN ROOM. PT INFORMED CM THAT IT IS OK TO DISCUSS ANYTHING REGARDING DISCHARGE PLANNING, CARE AND TREATMENT WITH HER DAUGHTER IN LAW. CM DISCUSSED HOSPICE ORDER AND AVAILABILITY OF HOSPICE. PT DECLINED HOSPICE AND DOES NOT WANT TO TALK TO THEM. PT DECLINED INFORMATION ON HOSPICE PROVIDERS AND ABOUT HOSPICE SERVICES. PT'S DAUGHTER IN LAW INFORMED PT THAT SHE IS NOT ABLE TO TAKE CARE OF PT AT HOME AND PT NEEDS TO CONSIDER GOING TO A NURSING FACILITY. PT STATES SHE WILL GO FOR REHAB ONLY WITH PLAN TO RETURN HOME. CM DISCUSSED PT'S CONTINUED DECLINE AND REFUSAL OF IV FLUIDS AND BLOOD. PT STATES SHE WILL ACCEPT THE IV BLOOD AND FLUIDS BUT WILL NOT CONSENT TO DIALYSIS. CM EXPLAINED THAT PT MAY WANT REHAB BUT MAY NOT BE ABLE TO RETURN HOME AND MAY REQUIRE CORRECTION CARE, COMFORT CARE OR HOSPICE CARE IN A DETENTION. CM EXPLAINED THAT MEDICARE WILL NOT PAY FOR ROOM AND BOARD IF PT IS RECEIVING HOSPICE IN THE DETENTION. PT AND DAUGHTER IN LAW REPORT UNDERSTANDING. PT STATES SHE WILL GO TO REHAB ONLY AND WANTS REFERRED TO [facility]. CHOICE SIGNED. IMPORTANT MESSAGE FROM MEDICARE PROVIDED AND EXPLAINED. CM CALLED TALI OF [facility], , PROVIDED REFERRAL INFORMATION AND FAXED REHAB REFERRAL TO [facility] AT [phone]. CM WAITING ON ADMISSION DETERMINATION FROM [facility] FOR REHAB PLACEMENT. PT DECLINED HOSPICE. Railroad Switchman: Gamaliel Riley DCP- Discharge Planning Updated by [id number]: Gamaliel Riley on 10/31/18 3:[address] Patient Name: COLUMBA YU Encounter No: [id number] : 1935 Primary Insurance: MEDICARE A & B Anticipated DC Date: 10-28-2018 Planned Disposition: Home DCP follow-up note: CM SPOKE TO DR. REESE WHO REPORTS PT'S RENAL FUNCTIONING APPEARS TO BE DECLINING. CM SPOKE TO PT IN ROOM REGARDING DISCHARGE PLANNING AND NEEDS. PT REPORTED TO CM THAT SHE THOUGHT SHE WOULD HAVE ALREADY BEEN DISCHARGED HOME AND DID NOT EXPECT TO STILL BE IN THE HOSPITAL. CM ASKED ABOUT WHAT THE DOCTORS HAVE BEEN TELLING HER. PT REPORTS SHE SPOKE TO DR. REESE AND UNDERSTANDS HER KINDEY CONDITION AND IF IT COMES TO NEEDING DIALYSIS, PT STATES SHE WILL NOT DO THAT. PT REPORTS THAT SHE UNDERSTANDS THAT IT WOULD MEAN SHE WOULD , BUT SHE IS COMFORABLE WITH THIS DECISION AND ALL OF HER ARRANGMENTS ARE MADE. PT DENIES NEEDS OF CM AT THIS TIME AND REPORTS PLAN TO DISCHARGE HOME WITH HER SON, BUT STATES SHE DOES NOT WANT TO BE A BURDEN TO ANYONE. IF PT NEEDS DIALYSIS, AT THIS TIME, SHE INDICATED TO CM THAT SHE WOULD NOT CONSENT TO IT. PT DENIES DISCHARGE NEEDS. PT CONTINUES TO PLAN TO DISCHARGE HOME WITH HER SON. CM WILL CONTINUE TO FOLLOW AND ASSIST NEEDED. Railroad Switchman: Gamaliel Riley DCP- Discharge Planning Updated by [id number]: Gamaliel Riley on 10/27/18 4:[address] Patient Name: COLUMBA YU Admission Status: Urgent Accout number: [id number] Admission Date: 10-27-2018 : 1935 Admission Diagnosis: Attending: JOURDAN, Current LOS: 1 Anticipated DC Date: 10-28-2018 Planned Disposition: Home Primary Insurance: MEDICARE A & B Discharge Planning Comments: CM RECEIVED REQUEST TO PROVIDE PT WITH ASSISTED LIVING INFORMATION. CM MET WITH PT IN ROOM TO DISCUSS DISCHARGE PLANNING AND NEEDS. PT REPORTS LIVING AT HOME INDEPENDENTLY WITH HER ADULT SON IN HIS HOME. PT REPORTS SHE HAS HER HOME NEXT DOOR TO HER SON'S ON HIS PROPERTY AND SIGNED EVERYTHING OVER TO HIM AT THE LIVE TRUCK OPERATOR'S OFFICE. PT REPORTS HER GRANDDAUGHTER IS LIVING IN HER (PT'S) HOME AND PT IS LIVING IN A ROOM IN HER SON'S HOME NOW. PT REPORT ALL OF HER NICE BELONGINGS AND THINGS ARE IN HER HOME AND NONE WILL BE MOVED UNTIL SHE DIES. PT REPORTS HER SON WILL GET HER HOUSE AND HER DAUGHTER WILL GET EVERYTHING OUT OF THE HOUSE, EVEN THOUGH SHE DOES NOT WANT IT. PT HAS A WALKER THAT SHE DOES NOT USE, FROM [employer]. PT HAS NO OUTSIDE SERVICES ASSISTING IN THE HOME. CM DISCUSSED AVAILABILITY OF HOME HEALTH, REHAB SERVICES AND MEDICAL EQUIPMENT. PT DENIES DISCHARGE NEEDS, REPORTS HER SON WILL PICK HER UP FOR DISCHARGE HOME CM PROVIDED ASSISTED AND INDEPENDENT LIVING INFORMATION, DISCUSSED COSTS. PT REPORTS SHE WANTS AN APARTMENT AT [facility] OR [facility] AND NO WHERE ELSE. PT REPORTS SHE CANNOT AFFORD EITHER ONE, AND HAS INCOME OF $1,300 PER MONTH. PT KNOWS THAT EXCEPTIONS CAN BE MADE AND A MIRACLE CAN HAPPEN AND SHE MAY COULD GET IN. CM EXPLAINED THAT ALL ASSISTED LIVINGS ARE A BUSINESS AND THAT IF SHE CANNOT PAY THE RATE SHE WILL NOT GET IN. CM PROVIDED PT WITH A PLACE FOR MOM REFERRAL SERVICE. PT REPORTS IT TO BE OK TO DISCUSS DISCHARGE PLANNING WITH HER SON WELL TREATMENT INFORMATION. CM OFFERED TO CALL ROJELIO OF A PLACE FOR MOM AND HAVE ROJELIO CALL HER AND HER SON TO SEE WHAT IS AVAILABLE IN PT'S [place]. PT ACCEPTED. CM CALLED ROJELIO OF A PLACE FOR MOM, , PROVIDED REFERRAL INFORMATION. ROJELIO LATER CALLED AND INFORMED CM THAT PT DID NOT ANSWER THE PHONE IN THE ROOM BUT SHE CALLED PT'S SON, JV AND PT'S BUDGET DOES NOT ALLOW WHAT PT WANTS AND THAT ROJELIO AND PT'S SON WILL CONTINUE TO SEEK OPTIONS FOR PT. PT DENIES DISCHARGE NEEDS. PT PLANS TO DISCHARGE HOME WITH HER SON WHERE SHE REPORTS TO BE SAFE. PT'S SON AND ROJELIO OF A PLACE FOR MOM WILL CONTINUE TO SEEK INDEPENDENT OR ASSISTED LIVING FOR PT THAT SHE CAN ACTUALLY AFFORD, IF ANY. Railroad Switchman: Gamaliel Riley DCPIA - Discharge Planning Initial Assessment Updated by [id number]: Gamaliel Riley on 10/27/18 5:43 pm * Is the patient Alert and Oriented? Yes * How many steps to enter\exit or inside your home? * PCP DR. SOLIMAN * Pharmacy [facility] IN [place] * Preadmission Environment Home with Family * ADLs Independent * Equipment Walker * Other Equipment DOES NOT USE ANY MEDICAL EQUIPMENT [employer] - MEDICAL EQUIPMENT PROVIDER * List name and contact numbers for known caregivers / representatives who currently or will assist patient after discharge: JV YU, SON, * Verbal permission to speak to the caregivers and representatives has been obtained from the patient. Yes * Community resources currently utilized None * Please name any agencies selected above. NONE * Additional services required to return to the preadmission environment? No * Can the patient safely return to the preadmission environment? Yes * Has this patient been hospitalized within the prior 30 days at any hospital? No Coverage Notice Reviewer: [id number] Danita Riley Notice Issued Date-Time: 11/02/2018 12:50 Notice Type: Patient Choice Letter Notice Delivered To: Patient Relationship to Patient: Dialysis Biomed Technician Name: Delivery Method: HAND - Hand Delivered Karla Days: Prior Verbal Notification: Recipient Understood Notice: Yes Recipient Signature: Yes Med Rec Note Co-signed by Attending: Coverage Notice Comment: [facility] Reviewer: [id number] Danita Riley Notice Issued Date-Time: 11/02/2018 12:50 Notice Type: IM Discharge Notice Notice Delivered To: Patient Relationship to Patient: Dialysis Biomed Technician Name: Delivery Method: HAND - Hand Delivered Karla Days: Prior Verbal Notification: Recipient Understood Notice: Yes Recipient Signature: Yes Med Rec Note Co-signed by Attending: Coverage Notice Comment: Last DP export: 11/03/18 8:54 am Patient Name: COLUMBA YU Page [id number] at 1028 All edits/amendments must be made on the electronic document DICTATION DATE: 11/03/18 1027 ASSOCIATE ARTISTIC DIRECTOR: IAIN 11/03/18 1027 RPT#: [id number] DC DATE: STATUS: ADM IN [facility] [address] [place] [address] END OF REPORT
[2018-11-03 10:35] LABS: HEMATOCRIT 25.1 % (36.0-48.0); HEMOGLOBIN 8.1 g/dL (12-16); IMMATURE GRANULOCYTES 0.3 % (0-5); MCH 30.3 pg (26.0-34.0); MCHC 32.3 g/dL (31.0-37.0); MEAN PLATELET VOLUME 10.5 fL (7.4-10.4); PLATELET COUNT 329 10x3/uL (130-400); RBC 2.67 10x6/uL (4.00-5.40); RDW 15.7 % (11.5-14.5); WBC 6.6 10x3/uL (4.8-10.8)
--- NOTE | 2018-11-03 10:51 | MORECARE ---
CASE MANAGEMENT DISCHARGE SUMMARY PATIENT: COLUMBA YU UNIT: [id number] ADM DATE: 10/27/18 AGE: 83 : [birth year] SEX: F ROOM/BED: D.7890 AUTHOR: MORALES JANSEN PHYSICIAN: REFERRING PHYSICIAN: TIMOTHY SOLIMAN MD DATE OF SERVICE: 11/03/18 Discharge Plan Patient Name: COLUMBA YU Facility: [facility]:[place] : 1935 Planned Disposition: Care Home Facility Anticipated Discharge Date: 11/03/18 Discharge Date: Expected LOS: 7 Initial Reviewer: [id number] Initial Review Date: 10/27/2018 Generated: 11/03/18 11:51 am Comments DCP- Discharge Planning Updated by [id number]: Radha Ladd on 11/03/18 9:[address] WENT INTO THE ROOM WITH ESPINOZA SUTTON TO SIGN THE ADVANCE DIRECTIVE AND POWER OF FULFILLMENT SPECIALIST PAPERWORK. PATIENT ANSWERED ALL QUESTIONS ASKED APPROPRIATELY AND WAS ABLE TO REPEAT TO LESLEY WHAT THE PAPERWORK WAS FOR THAT SHE WAS SIGNING. BOTH FORMS WERE SIGNED AND THEN NOTARIZED. THE POA FORM HAS TO BE SIGNED BY THE SON, JV YU, STATING THAT HE ACCEPTS THE RESPONSIBILITY FOR IT TO BE LEGAL, AND PER LESLEY, IT CAN BE SIGNED AFTER NOTARIZED. THE SON'S [id number] WAS ABLE TO REACH JV PRIOR TO CM, AND HE IS AWARE THAT IT NEEDS TO BE SIGNED. I SPOKE WITH ANITA PORTER APN FOR DR CLAVO ABOUT THE PATIENT BEING ACCEPTED TO [facility] FOR REHAB. IT WAS EXPLAINED TO HER THAT THE LONG-TERM IS AWARE THAT THE PATIENT NEEDS HOSPICE AND IS REFUSING TO RECEIVE BLOOD OR START DIALYSIS. THEY KNOW THAT HER OUTLOOK IS GRIM, BUT THE PATIENT IS WANTING TO TRY REHAB FIRST. PER TALI, THE DON AT [facility], THEY HAVE A SNF CARE BED AVAILABLE AND ARE ABLE TO TRANSITION HER FROM REHAB WITH COMFORT CARE (THEY DO NOT DO HOSPICE AT THEIR FACILITY), IF THE REHAB DOES NOT WORK FOR HER. ANITA HAS SPOKE WITH DR CALVO AND STATED THAT THEY WILL NOT DISCHARGE THE PATIENT TO REHAB. THAT THE PATIENT IS NOT MEDICALLY STABLE TO GO TO REHAB. SHE MADE NOTE THAT THEY ARE AWARE THE PATIENT IS REFUSING CARE, BUT STATED THE LONG-TERM WOULD PROBABLY JUST SENT HER BACK. AGAIN I EXPLAINED THE LONG-TERM IS AWARE OF HER LABS AND THE SITUTATION AND HAS A PLAN IN PLACE, THAT THEY ARE TRYING TO HONOR PATIENTS WISHES TO TRY. END CONVERSATION BASICALLY WAS THE PATIENT WILL NOT DISCHARGE IF NOT DISCHARGING WITH HOSPICE. SHE TOOK THE SON'S NUMBER ([phone]) AND IS GOING TO HAVE DR CALVO CALL AND TALK TO THE SON. SHE EXPRESSED THAT SHE DID NOT FEEL THE PATIENT WAS CAPABLE OF MAKING HER OWN DECISIONS AND THEY NEEDED SOMEONE TO MAKE DECISIONS FOR HER. CM WILL WAIT FOR OUTCOME OF THIS. IN THE MEANTIME, ASHLEIGH HAS CALLED THE LONG-TERM AND PUT A STOP TO TRANSPORT FOR THE TIME BEING. SPOKE WITH ANTHONY BLISS APN WITH THE RENAL GROUP. SHE HAS SPOKEN TO DR REESE ABOUT THE SITUTATION AND THEN TOLD ME AND ASHLEIGH THAT DR REESE IS GOING TO TALK WITH DR CALVO. AGAIN WE WILL WAIT FOR THE OUTCOME. LASTLY, I RECEIVED A PHONE CALL FROM ALEX, PATIENTS SON'S WIERDT-DE-DEO. SHE STATED THAT SHE HAS SPOKEN WITH JV AND HE IS CURRENTLY WORKING IN [employer] AND WILL BE OFF SHORTLY AFTER NOON, AND WILL COME STRAIGHT HERE AFTER TO SIGN PAPERS AND TALK TO THE DOCTORS. DCP- Discharge Planning Updated by [id number]: Gamaliel Riley on 11/03/18 9:[address] Patient Name: COLUMBA YU Encounter No: [id number] : 1935 Primary Insurance: MEDICARE A & B Anticipated DC Date: 11-03-2018 Planned Disposition: Care Home Facility External Planned Provider: [facility], UNKNOWN BED STATUS DCP follow-up note: CM RECEIVED CALL FROM TALI OF [facility], , THEY WILL ACCEPT TO TRY REHAB AT PT'S REQUEST AND CAN TRANSITION TO COMFORT CARE LONG FAMILY IS WILLING TO MAKE FINANCIAL ARRAGEMENTS FOR ROOM AND BOARD. [facility] CAN ASSISTANT WOMEN'S TENNIS COACH PT AT 1130AM TODAY. CM NOTIFIED PT WHO IS IN AGREEMENT WITH PLAN. PT'S DAUGHTER IN LAW'S SISTER ASSISTED WITH FILLING OUT MEDICAL POWER OF FULFILLMENT SPECIALIST AT PT'S REQUEST. PT COMPLETED MEDICAL POWER OF FULFILLMENT SPECIALIST FOR HER SON WHO NEEDS TO SIGN ACCEPTANCE. CM NOTIFIED SANDEE PORTER. CM INFORMED THAT DR. CALVO WILL NOT DISCHARGE PT TO REHAB AND THAT IF DISCHARGED, IT WILL NEED TO BE WITH HOSPICE CARE. SANDEE PORTER INFORMED CM THAT DR. CALVO IS ATTEMPTING TO CALL AND SPEAK TO PT'S SON REGARDING PLAN AND TREATMENT. CM CALLED [facility], SPOKE TO TALI AND CANCELLED TRANSPORT ARRANGEMENTS. CM WAITING FOR DOCTOR AND PT'S SON TO DISCUSS PT'S CARE AND TREATMENT PLAN. CM TO CONTINUE TO FOLLOW AND ASSIST NEEDED. Gamaliel Riley, CASE MANAGEMENT DCP- Discharge Planning Updated by [id number]: Gamaliel Riley on 11/02/18 1:[address] Patient Name: COLUMBA YU Admission Status: Urgent Accout number: [id number] Admission Date: 10-27-2018 : 1935 Admission Diagnosis:SHORTNESS OF BREATH Attending: JOURDAN Current LOS: 6 Anticipated DC Date: 11-03-2018 Planned Disposition: Care Home Facility Primary Insurance: MEDICARE A & B PLANNED EXTERNAL PROVIDER: Discharge Planning Comments: CM RECEIVED ORDER FOR CONSULT OF HOSPICE AT HOME. CM MET WITH PT AND HER DAUGHTER IN LAW IN ROOM. PT INFORMED CM THAT IT IS OK TO DISCUSS ANYTHING REGARDING DISCHARGE PLANNING, CARE AND TREATMENT WITH HER DAUGHTER IN LAW. CM DISCUSSED HOSPICE ORDER AND AVAILABILITY OF HOSPICE. PT DECLINED HOSPICE AND DOES NOT WANT TO TALK TO THEM. PT DECLINED INFORMATION ON HOSPICE PROVIDERS AND ABOUT HOSPICE SERVICES. PT'S DAUGHTER IN LAW INFORMED PT THAT SHE IS NOT ABLE TO TAKE CARE OF PT AT HOME AND PT NEEDS TO CONSIDER GOING TO A NURSING FACILITY. PT STATES SHE WILL GO FOR REHAB ONLY WITH PLAN TO RETURN HOME. CM DISCUSSED PT'S CONTINUED DECLINE AND REFUSAL OF IV FLUIDS AND BLOOD. PT STATES SHE WILL ACCEPT THE IV BLOOD AND FLUIDS BUT WILL NOT CONSENT TO DIALYSIS. CM EXPLAINED THAT PT MAY WANT REHAB BUT MAY NOT BE ABLE TO RETURN HOME AND MAY REQUIRE TALKING BOOKS LIBRARY CLERK CARE, COMFORT CARE OR HOSPICE CARE IN A LONG-TERM. CM EXPLAINED THAT MEDICARE WILL NOT PAY FOR ROOM AND BOARD IF PT IS RECEIVING HOSPICE IN THE LONG-TERM. PT AND DAUGHTER IN LAW REPORT UNDERSTANDING. PT STATES SHE WILL GO TO REHAB ONLY AND WANTS REFERRED TO [facility]. CHOICE SIGNED. IMPORTANT MESSAGE FROM MEDICARE PROVIDED AND EXPLAINED. CM CALLED TALI OF [facility], , PROVIDED REFERRAL INFORMATION AND FAXED REHAB REFERRAL TO [facility] AT [phone]. CM WAITING ON ADMISSION DETERMINATION FROM [facility] FOR REHAB PLACEMENT. PT DECLINED HOSPICE. [employer] Salesperson: Gaamliel Riley DCP- Discharge Planning Updated by [id number]: Gamaliel Riley on 10/31/18 3:[address] Patient Name: COLUMBA YU Encounter No: [id number] : 1935 Primary Insurance: MEDICARE A & B Anticipated DC Date: 10-28-2018 Planned Disposition: Home DCP follow-up note: CM SPOKE TO DR. REESE WHO REPORTS PT'S RENAL FUNCTIONING APPEARS TO BE DECLINING. CM SPOKE TO PT IN ROOM REGARDING DISCHARGE PLANNING AND NEEDS. PT REPORTED TO CM THAT SHE THOUGHT SHE WOULD HAVE ALREADY BEEN DISCHARGED HOME AND DID NOT EXPECT TO STILL BE IN THE HOSPITAL. CM ASKED ABOUT WHAT THE DOCTORS HAVE BEEN TELLING HER. PT REPORTS SHE SPOKE TO DR. REESE AND UNDERSTANDS HER KINDEY CONDITION AND IF IT COMES TO NEEDING DIALYSIS, PT STATES SHE WILL NOT DO THAT. PT REPORTS THAT SHE UNDERSTANDS THAT IT WOULD MEAN SHE WOULD , BUT SHE IS COMFORABLE WITH THIS DECISION AND ALL OF HER ARRANGMENTS ARE MADE. PT DENIES NEEDS OF CM AT THIS TIME AND REPORTS PLAN TO DISCHARGE HOME WITH HER SON, BUT STATES SHE DOES NOT WANT TO BE A BURDEN TO ANYONE. IF PT NEEDS DIALYSIS, AT THIS TIME, SHE INDICATED TO CM THAT SHE WOULD NOT CONSENT TO IT. PT DENIES DISCHARGE NEEDS. PT CONTINUES TO PLAN TO DISCHARGE HOME WITH HER SON. CM WILL CONTINUE TO FOLLOW AND ASSIST NEEDED. [employer] Salesperson: Gamaliel Riley DCP- Discharge Planning Updated by [id number]: Gamaliel Riley on 10/27/18 4:[address] Patient Name: COLUMBA YU Admission Status: Urgent Accout number: [id number] Admission Date: 10-27-2018 : 1935 Admission Diagnosis: Attending: JOURDAN, Current LOS: 1 Anticipated DC Date: 10-28-2018 Planned Disposition: Home Primary Insurance: MEDICARE A & B Discharge Planning Comments: CM RECEIVED REQUEST TO PROVIDE PT WITH ASSISTED LIVING INFORMATION. CM MET WITH PT IN ROOM TO DISCUSS DISCHARGE PLANNING AND NEEDS. PT REPORTS LIVING AT HOME INDEPENDENTLY WITH HER ADULT SON IN HIS HOME. PT REPORTS SHE HAS HER HOME NEXT DOOR TO HER SON'S ON HIS PROPERTY AND SIGNED EVERYTHING OVER TO HIM AT THE FULFILLMENT SPECIALIST'S OFFICE. PT REPORTS HER GRANDDAUGHTER IS LIVING IN HER (PT'S) HOME AND PT IS LIVING IN A ROOM IN HER SON'S HOME NOW. PT REPORT ALL OF HER NICE BELONGINGS AND THINGS ARE IN HER HOME AND NONE WILL BE MOVED UNTIL SHE DIES. PT REPORTS HER SON WILL GET HER HOUSE AND HER DAUGHTER WILL GET EVERYTHING OUT OF THE HOUSE, EVEN THOUGH SHE DOES NOT WANT IT. PT HAS A WALKER THAT SHE DOES NOT USE, FROM [employer]. PT HAS NO OUTSIDE SERVICES ASSISTING IN THE HOME. CM DISCUSSED AVAILABILITY OF HOME HEALTH, REHAB SERVICES AND MEDICAL EQUIPMENT. PT DENIES DISCHARGE NEEDS, REPORTS HER SON WILL PICK HER UP FOR DISCHARGE HOME CM PROVIDED ASSISTED AND INDEPENDENT LIVING INFORMATION, DISCUSSED COSTS. PT REPORTS SHE WANTS AN APARTMENT AT [facility] OR [facility] INDEPENDENT LIVING AND NO WHERE ELSE. PT REPORTS SHE CANNOT AFFORD EITHER ONE, AND HAS INCOME OF $1,300 PER MONTH. PT KNOWS THAT EXCEPTIONS CAN BE MADE AND A MIRACLE CAN HAPPEN AND SHE MAY COULD GET IN. CM EXPLAINED THAT ALL ASSISTED LIVINGS ARE A BUSINESS AND THAT IF SHE CANNOT PAY THE RATE SHE WILL NOT GET IN. CM PROVIDED PT WITH A PLACE FOR MOM REFERRAL SERVICE. PT REPORTS IT TO BE OK TO DISCUSS DISCHARGE PLANNING WITH HER SON WELL TREATMENT INFORMATION. CM OFFERED TO CALL ROJELIO OF A PLACE FOR MOM AND HAVE ROJELIO CALL HER AND HER SON TO SEE WHAT IS AVAILABLE IN PT'S [place]. PT ACCEPTED. CM CALLED ROJELIO OF A PLACE FOR MOM, , PROVIDED REFERRAL INFORMATION. ROJELIO LATER CALLED AND INFORMED CM THAT PT DID NOT ANSWER THE PHONE IN THE ROOM BUT SHE CALLED PT'S SON, JV AND PT'S BUDGET DOES NOT ALLOW WHAT PT WANTS AND THAT ROJELIO AND PT'S SON WILL CONTINUE TO SEEK OPTIONS FOR PT. PT DENIES DISCHARGE NEEDS. PT PLANS TO DISCHARGE HOME WITH HER SON WHERE SHE REPORTS TO BE SAFE. PT'S SON AND ROJELIO OF A PLACE FOR MOM WILL CONTINUE TO SEEK INDEPENDENT OR ASSISTED LIVING FOR PT THAT SHE CAN ACTUALLY AFFORD, IF ANY. [employer] Salesperson: Gamaliel Riley DCPIA - Discharge Planning Initial Assessment Updated by [id number]: Gamaliel Riley on 10/27/18 5:43 pm * Is the patient Alert and Oriented? Yes * How many steps to enter\exit or inside your home? * PCP DR. SOLIMAN * Pharmacy [facility] IN [place] * Preadmission Environment Home with Family * ADLs Independent * Equipment Walker * Other Equipment DOES NOT USE ANY MEDICAL EQUIPMENT [employer] - MEDICAL EQUIPMENT PROVIDER * List name and contact numbers for known caregivers / representatives who currently or will assist patient after discharge: JV YU, SON, * Verbal permission to speak to the caregivers and representatives has been obtained from the patient. Yes * Community resources currently utilized None * Please name any agencies selected above. NONE * Additional services required to return to the preadmission environment? No * Can the patient safely return to the preadmission environment? Yes * Has this patient been hospitalized within the prior 30 days at any hospital? No Coverage Notice Reviewer: [id number] Danita Riley Notice Issued Date-Time: 11/02/2018 12:50 Notice Type: Patient Choice Letter Notice Delivered To: Patient Relationship to Patient: Rooming House Operator Name: Delivery Method: HAND - Hand Delivered Karla Days: Prior Verbal Notification: Recipient Understood Notice: Yes Recipient Signature: Yes Med Rec Note Co-signed by Attending: Coverage Notice Comment: [facility] Reviewer: [id number] Danita Riley Notice Issued Date-Time: 11/02/2018 12:50 Notice Type: IM Discharge Notice Notice Delivered To: Patient Relationship to Patient: Rooming House Operator Name: Delivery Method: HAND - Hand Delivered Karla Days: Prior Verbal Notification: Recipient Understood Notice: Yes Recipient Signature: Yes Med Rec Note Co-signed by Attending: Coverage Notice Comment: Last DP export: 11/03/18 9:28 am Patient Name: COLUMBA YU Page [id number] at 1051 All edits/amendments must be made on the electronic document DICTATION DATE: 11/03/18 105 DIRECTOR OF CORPORATE MARKETING: IAIN 11/03/18 1050 RPT#: [id number] DC DATE: STATUS: ADM IN [facility] [address] [place] [address] END OF REPORT
--- NOTE | 2018-11-03 11:00 | NUR ---
RESTING QUIETLY NAD NOTED
[2018-11-03 11:20] LABS: BASOPHILS 1 % (0-2); EOSINOPHILS 2 % (0-7); LYMPHOCYTES 17 % (15-50); MONOCYTES 10 % (2-11); NEUTROPHILS 70 % (40-80); PLATELET ESTIMATE NORMAL
[2018-11-03 12:48] VITALS: BP 122/49
--- NOTE | 2018-11-03 14:50 | NUR ---
Nutrition follow-up: Diet: ADA consistent CHO PO intake 50-75% of meals Labs reviewed +BM Wt: 161# PO intake fair to good at this time. RDN following.
--- NOTE | 2018-11-03 15:05 | MORECARE ---
CASE MANAGEMENT DISCHARGE SUMMARY PATIENT: COLUMBA YU UNIT: [id number] ADM DATE: 10/27/18 AGE: 83 : 34 SEX: F ROOM/BED: D.1360 AUTHOR: MORALES JANSEN PHYSICIAN: REFERRING PHYSICIAN: TIMOTHY SOLIMAN MD DATE OF SERVICE: 11/03/18 Discharge Plan Patient Name: COLUMBA YU Facility: [facility]:[place] : 1935 Planned Disposition: Half-Way Facility Anticipated Discharge Date: 11/04/18 Discharge Date: Expected LOS: 8 Initial Reviewer: [id number] Initial Review Date: 10/27/2018 Generated: 11/03/18 4:04 pm Comments DCP- Discharge Planning Updated by [id number]: Radha Ladd on 11/03/18 9:[address] WENT INTO THE ROOM WITH ESPINOZA SUTTON TO SIGN THE ADVANCE DIRECTIVE AND POWER OF OPTICAL WORKER PAPERWORK. PATIENT ANSWERED ALL QUESTIONS ASKED APPROPRIATELY AND WAS ABLE TO REPEAT TO LESLEY WHAT THE PAPERWORK WAS FOR THAT SHE WAS SIGNING. BOTH FORMS WERE SIGNED AND THEN NOTARIZED. THE POA FORM HAS TO BE SIGNED BY THE SON, JV YU, STATING THAT HE ACCEPTS THE RESPONSIBILITY FOR IT TO BE LEGAL, AND PER LESLEY, IT CAN BE SIGNED AFTER NOTARIZED. THE SON'S [id number] WAS ABLE TO REACH JV PRIOR TO CM, AND HE IS AWARE THAT IT NEEDS TO BE SIGNED. I SPOKE WITH ANITA PORTER APN FOR DR CALVO ABOUT THE PATIENT BEING ACCEPTED TO [facility] FOR REHAB. IT WAS EXPLAINED TO HER THAT THE [facility] IS AWARE THAT THE PATIENT NEEDS HOSPICE AND IS REFUSING TO RECEIVE BLOOD OR START DIALYSIS. THEY KNOW THAT HER OUTLOOK IS GRIM, BUT THE PATIENT IS WANTING TO TRY REHAB FIRST. PER TALI, THE DON AT [facility], THEY HAVE A [facility] CARE BED AVAILABLE AND ARE ABLE TO TRANSITION HER FROM REHAB WITH COMFORT CARE (THEY DO NOT DO HOSPICE AT THEIR FACILITY), IF THE REHAB DOES NOT WORK FOR HER. ANITA HAS SPOKE WITH DR CALVO AND STATED THAT THEY WILL NOT DISCHARGE THE PATIENT TO REHAB. THAT THE PATIENT IS NOT MEDICALLY STABLE TO GO TO REHAB. SHE MADE NOTE THAT THEY ARE AWARE THE PATIENT IS REFUSING CARE, BUT STATED THE [facility] WOULD PROBABLY JUST SENT HER BACK. AGAIN I EXPLAINED THE [facility] IS AWARE OF HER LABS AND THE SITUTATION AND HAS A PLAN IN PLACE, THAT THEY ARE TRYING TO HONOR PATIENTS WISHES TO TRY. END CONVERSATION BASICALLY WAS THE PATIENT WILL NOT DISCHARGE IF NOT DISCHARGING WITH HOSPICE. SHE TOOK THE SON'S NUMBER ([phone]) AND IS GOING TO HAVE DR CALVO CALL AND TALK TO THE SON. SHE EXPRESSED THAT SHE DID NOT FEEL THE PATIENT WAS CAPABLE OF MAKING HER OWN DECISIONS AND THEY NEEDED SOMEONE TO MAKE DECISIONS FOR HER. CM WILL WAIT FOR OUTCOME OF THIS. IN THE MEANTIME, ASHLEIGH HAS CALLED THE [facility] AND PUT A STOP TO TRANSPORT FOR THE TIME BEING. SPOKE WITH ANTHONY BLISS APN WITH THE RENAL GROUP. SHE HAS SPOKEN TO DR REESE ABOUT THE SITUTATION AND THEN TOLD ME AND ASHLEIGH THAT DR REESE IS GOING TO TALK WITH DR CALVO. AGAIN WE WILL WAIT FOR THE OUTCOME. LASTLY, I RECEIVED A PHONE CALL FROM ALEX, PATIENTS SON'S [id number]. SHE STATED THAT SHE HAS SPOKEN WITH JV AND HE IS CURRENTLY WORKING IN [employer] AND WILL BE OFF SHORTLY AFTER NOON, AND WILL COME STRAIGHT HERE AFTER TO SIGN PAPERS AND TALK TO THE DOCTORS. DCP- Discharge Planning Updated by [id number]: Gamaliel Riley on 11/03/18 9:[address] Patient Name: COLUMBA YU Encounter No: [id number] : 1935 Primary Insurance: MEDICARE A & B Anticipated DC Date: 11-03-2018 Planned Disposition: Half-Way Facility External Planned Provider: [facility], UNKNOWN BED STATUS DCP follow-up note: CM RECEIVED CALL FROM TALI OF [facility], , THEY WILL ACCEPT TO TRY REHAB AT PT'S REQUEST AND CAN TRANSITION TO COMFORT CARE LONG FAMILY IS WILLING TO MAKE FINANCIAL ARRAGEMENTS FOR ROOM AND BOARD. [facility] CAN LASER MACHINE OPERATOR PT AT 1130AM TODAY. CM NOTIFIED PT WHO IS IN AGREEMENT WITH PLAN. PT'S DAUGHTER IN LAW'S SISTER ASSISTED WITH FILLING OUT MEDICAL POWER OF OPTICAL WORKER AT PT'S REQUEST. PT COMPLETED MEDICAL POWER OF OPTICAL WORKER FOR HER SON WHO NEEDS TO SIGN ACCEPTANCE. CM NOTIFIED SANDEE PORTER. CM INFORMED THAT DR. CALVO WILL NOT DISCHARGE PT TO REHAB AND THAT IF DISCHARGED, IT WILL NEED TO BE WITH HOSPICE CARE. SANDEE PORTER INFORMED CM THAT DR. CALVO IS ATTEMPTING TO CALL AND SPEAK TO PT'S SON REGARDING PLAN AND TREATMENT. CM CALLED [facility], SPOKE TO TALI AND CANCELLED TRANSPORT ARRANGEMENTS. CM WAITING FOR DOCTOR AND PT'S SON TO DISCUSS PT'S CARE AND TREATMENT PLAN. CM TO CONTINUE TO FOLLOW AND ASSIST NEEDED. Gamaliel Riley, CASE MANAGEMENT DCP- Discharge Planning Updated by [id number]: Gamaliel Riley on 11/02/18 1:[address] Patient Name: COLUMBA YU Admission Status: Urgent Accout number: [id number] Admission Date: 10-27-2018 : 1935 Admission Diagnosis:SHORTNESS OF BREATH Attending: JOURDAN Current LOS: 6 Anticipated DC Date: 11-03-2018 Planned Disposition: Half-Way Facility Primary Insurance: MEDICARE A & B PLANNED EXTERNAL PROVIDER: Discharge Planning Comments: CM RECEIVED ORDER FOR CONSULT OF HOSPICE AT HOME. CM MET WITH PT AND HER DAUGHTER IN LAW IN ROOM. PT INFORMED CM THAT IT IS OK TO DISCUSS ANYTHING REGARDING DISCHARGE PLANNING, CARE AND TREATMENT WITH HER DAUGHTER IN LAW. CM DISCUSSED HOSPICE ORDER AND AVAILABILITY OF HOSPICE. PT DECLINED HOSPICE AND DOES NOT WANT TO TALK TO THEM. PT DECLINED INFORMATION ON HOSPICE PROVIDERS AND ABOUT HOSPICE SERVICES. PT'S DAUGHTER IN LAW INFORMED PT THAT SHE IS NOT ABLE TO TAKE CARE OF PT AT HOME AND PT NEEDS TO CONSIDER GOING TO A NURSING FACILITY. PT STATES SHE WILL GO FOR REHAB ONLY WITH PLAN TO RETURN HOME. CM DISCUSSED PT'S CONTINUED DECLINE AND REFUSAL OF IV FLUIDS AND BLOOD. PT STATES SHE WILL ACCEPT THE IV BLOOD AND FLUIDS BUT WILL NOT CONSENT TO DIALYSIS. CM EXPLAINED THAT PT MAY WANT REHAB BUT MAY NOT BE ABLE TO RETURN HOME AND MAY REQUIRE NUTRITION INTERNSHIP CARE, COMFORT CARE OR HOSPICE CARE IN A [facility]. CM EXPLAINED THAT MEDICARE WILL NOT PAY FOR ROOM AND BOARD IF PT IS RECEIVING HOSPICE IN THE [facility]. PT AND DAUGHTER IN LAW REPORT UNDERSTANDING. PT STATES SHE WILL GO TO REHAB ONLY AND WANTS REFERRED TO [facility]. CHOICE SIGNED. IMPORTANT MESSAGE FROM MEDICARE PROVIDED AND EXPLAINED. CM CALLED TALI OF [facility], , PROVIDED REFERRAL INFORMATION AND FAXED REHAB REFERRAL TO [facility] AT [phone]. CM WAITING ON ADMISSION DETERMINATION FROM [facility] FOR REHAB PLACEMENT. PT DECLINED HOSPICE. Psychiatric Rn: Gamaliel Riley DCP- Discharge Planning Updated by [id number]: Gamaliel Riley on 10/31/18 3:[address] Patient Name: COLUMBA YU Encounter No: [id number] : 1935 Primary Insurance: MEDICARE A & B Anticipated DC Date: 10-28-2018 Planned Disposition: Home DCP follow-up note: CM SPOKE TO DR. REESE WHO REPORTS PT'S RENAL FUNCTIONING APPEARS TO BE DECLINING. CM SPOKE TO PT IN ROOM REGARDING DISCHARGE PLANNING AND NEEDS. PT REPORTED TO CM THAT SHE THOUGHT SHE WOULD HAVE ALREADY BEEN DISCHARGED HOME AND DID NOT EXPECT TO STILL BE IN THE HOSPITAL. CM ASKED ABOUT WHAT THE DOCTORS HAVE BEEN TELLING HER. PT REPORTS SHE SPOKE TO DR. REESE AND UNDERSTANDS HER KINDEY CONDITION AND IF IT COMES TO NEEDING DIALYSIS, PT STATES SHE WILL NOT DO THAT. PT REPORTS THAT SHE UNDERSTANDS THAT IT WOULD MEAN SHE WOULD , BUT SHE IS COMFORABLE WITH THIS DECISION AND ALL OF HER ARRANGMENTS ARE MADE. PT DENIES NEEDS OF CM AT THIS TIME AND REPORTS PLAN TO DISCHARGE HOME WITH HER SON, BUT STATES SHE DOES NOT WANT TO BE A BURDEN TO ANYONE. IF PT NEEDS DIALYSIS, AT THIS TIME, SHE INDICATED TO CM THAT SHE WOULD NOT CONSENT TO IT. PT DENIES DISCHARGE NEEDS. PT CONTINUES TO PLAN TO DISCHARGE HOME WITH HER SON. CM WILL CONTINUE TO FOLLOW AND ASSIST NEEDED. Psychiatric Rn: Gamaliel Riley DCP- Discharge Planning Updated by [id number]: Gamaliel Riley on 10/27/18 4:[address] Patient Name: COLUMBA YU Admission Status: Urgent Accout number: [id number] Admission Date: 10-27-2018 : 1935 Admission Diagnosis: Attending: JOURDAN, Current LOS: 1 Anticipated DC Date: 10-28-2018 Planned Disposition: Home Primary Insurance: MEDICARE A & B Discharge Planning Comments: CM RECEIVED REQUEST TO PROVIDE PT WITH ASSISTED LIVING INFORMATION. CM MET WITH PT IN ROOM TO DISCUSS DISCHARGE PLANNING AND NEEDS. PT REPORTS LIVING AT HOME INDEPENDENTLY WITH HER ADULT SON IN HIS HOME. PT REPORTS SHE HAS HER HOME NEXT DOOR TO HER SON'S ON HIS PROPERTY AND SIGNED EVERYTHING OVER TO HIM AT THE OPTICAL WORKER'S OFFICE. PT REPORTS HER GRANDDAUGHTER IS LIVING IN HER (PT'S) HOME AND PT IS LIVING IN A ROOM IN HER SON'S HOME NOW. PT REPORT ALL OF HER NICE BELONGINGS AND THINGS ARE IN HER HOME AND NONE WILL BE MOVED UNTIL SHE DIES. PT REPORTS HER SON WILL GET HER HOUSE AND HER DAUGHTER WILL GET EVERYTHING OUT OF THE HOUSE, EVEN THOUGH SHE DOES NOT WANT IT. PT HAS A WALKER THAT SHE DOES NOT USE, FROM [employer]. PT HAS NO OUTSIDE SERVICES ASSISTING IN THE HOME. CM DISCUSSED AVAILABILITY OF HOME HEALTH, REHAB SERVICES AND MEDICAL EQUIPMENT. PT DENIES DISCHARGE NEEDS, REPORTS HER SON WILL PICK HER UP FOR DISCHARGE HOME CM PROVIDED ASSISTED AND INDEPENDENT LIVING INFORMATION, DISCUSSED COSTS. PT REPORTS SHE WANTS AN APARTMENT AT [facility] OR [facility] AND NO WHERE ELSE. PT REPORTS SHE CANNOT AFFORD EITHER ONE, AND HAS INCOME OF $1,300 PER MONTH. PT KNOWS THAT EXCEPTIONS CAN BE MADE AND A MIRACLE CAN HAPPEN AND SHE MAY COULD GET IN. CM EXPLAINED THAT ALL ASSISTED LIVINGS ARE A BUSINESS AND THAT IF SHE CANNOT PAY THE RATE SHE WILL NOT GET IN. CM PROVIDED PT WITH A PLACE FOR MOM REFERRAL SERVICE. PT REPORTS IT TO BE OK TO DISCUSS DISCHARGE PLANNING WITH HER SON WELL TREATMENT INFORMATION. CM OFFERED TO CALL ROJELIO OF [facility] AND HAVE ROJELIO CALL HER AND HER SON TO SEE WHAT IS AVAILABLE IN PT'S [place]. PT ACCEPTED. CM CALLED ROJELIO OF [facility], , PROVIDED REFERRAL INFORMATION. ROJELIO LATER CALLED AND INFORMED CM THAT PT DID NOT ANSWER THE PHONE IN THE ROOM BUT SHE CALLED PT'S SON, JV AND PT'S BUDGET DOES NOT ALLOW WHAT PT WANTS AND THAT ROJELIO AND PT'S SON WILL CONTINUE TO SEEK OPTIONS FOR PT. PT DENIES DISCHARGE NEEDS. PT PLANS TO DISCHARGE HOME WITH HER SON WHERE SHE REPORTS TO BE SAFE. PT'S SON AND [facility] WILL CONTINUE TO SEEK INDEPENDENT OR ASSISTED LIVING FOR PT THAT SHE CAN ACTUALLY AFFORD, IF ANY. Psychiatric Rn: Gamaliel Riley DCPIA - Discharge Planning Initial Assessment Updated by [id number]: Gamaliel Riley on 10/27/18 5:43 pm * Is the patient Alert and Oriented? Yes * How many steps to enter\exit or inside your home? * PCP DR. SOLIMAN * [facility] [place] * Preadmission Environment Home with Family * ADLs Independent * Equipment Walker * Other Equipment DOES NOT USE ANY MEDICAL EQUIPMENT [employer] - MEDICAL EQUIPMENT PROVIDER * List name and contact numbers for known caregivers / representatives who currently or will assist patient after discharge: JV YU, SON, * Verbal permission to speak to the caregivers and representatives has been obtained from the patient. Yes * Community resources currently utilized None * Please name any agencies selected above. NONE * Additional services required to return to the preadmission environment? No * Can the patient safely return to the preadmission environment? Yes * Has this patient been hospitalized within the prior 30 days at any hospital? No Coverage Notice Reviewer: [id number] Danita Riley Notice Issued Date-Time: 11/02/2018 12:50 Notice Type: Patient Choice Letter Notice Delivered To: Patient Relationship to Patient: Hydrate Control Tender Name: Delivery Method: HAND - Hand Delivered Karla Days: Prior Verbal Notification: Recipient Understood Notice: Yes Recipient Signature: Yes Med Rec Note Co-signed by Attending: Coverage Notice Comment: [facility] Reviewer: [id number] Danita Riley Notice Issued Date-Time: 11/02/2018 12:50 Notice Type: IM Discharge Notice Notice Delivered To: Patient Relationship to Patient: Hydrate Control Tender Name: Delivery Method: HAND - Hand Delivered Karla Days: Prior Verbal Notification: Recipient Understood Notice: Yes Recipient Signature: Yes Med Rec Note Co-signed by Attending: Coverage Notice Comment: Last DP export: 11/03/18 9:51 am Patient Name: COLUMBA YU Page [id number] at 1505 All edits/amendments must be made on the electronic document DICTATION DATE: 11/03/18 150 ELECTRIC METER SETTER: IAIN 11/03/18 1504 RPT#: [id number] DC DATE: STATUS: ADM IN [facility] [address] [place] [address] END OF REPORT
--- NOTE | 2018-11-03 15:13 | MORECARE ---
CASE MANAGEMENT DISCHARGE SUMMARY PATIENT: COLUMBA YU UNIT: [id number] ADM DATE: 10/27/18 AGE: 83 : 34 SEX: F ROOM/BED: D.6791 AUTHOR: JUSTYNA,DOC PHYSICIAN: REFERRING PHYSICIAN: TIMOTHY SOLIMAN MD DATE OF SERVICE: 11/03/18 Discharge Plan Patient Name: COLUMBA YU Facility: [facility]:[place] : 1935 Planned Disposition: Shelter Facility Anticipated Discharge Date: 11/04/18 Discharge Date: Expected LOS: 8 Initial Reviewer: [id number] Initial Review Date: 10/27/2018 Generated: 11/03/18 4:13 pm Comments DCP- Discharge Planning Updated by [id number]: Gamaliel Riley on 11/03/18 2:[address] Patient Name: COLUMBA YU Admission Status: Urgent Accout number: [id number] Admission Date: 10-27-2018 : 1935 Admission Diagnosis:SHORTNESS OF BREATH Attending: JOURDAN, Current LOS: 6 Anticipated DC Date: 11-03-2018 Planned Disposition: Shelter Facility Primary Insurance: MEDICARE A & B PLANNED EXTERNAL PROVIDER: [facility], SKILLED MEDICARE BED Discharge Planning Comments: PAULINE SPOKE TO DR. CALVO AND SANDEE PORTER, WILL DISCHARGE PT TO PRIVATE PAY COMFORT CARE BED OR SKILLED BED. [facility] [employer] [employer] SPOKE TO PT, PT'S SON AND DAUGHTER IN LAW IN ROOM. PT'S SON REQUESTED SKILLED REHAB BED PT WOULD LIKE TO GET STONGER AND GIVE FAMILY A CHANCE TO WORK OUT FINANCES FOR CUSTODIAL CARE OR COMFORT CARE AT THE [facility] IF NEEDED. CM CALLED TALI AT [facility] WHO IS STILL WILLING TO ADMIT TOMORROW IN SKILLED BED FOR REHAB SERVICES, WILL ARRANGE FOR INTERNAL SALES IN THE MORNING, 11-04-18. CM NOTIFIED SANDEE PORTER. FOR DISCHARGE ON 11-04-18, FAX DISCHARGE INFORMATION TO [facility] AT [phone]; NURSE REPORT TO BE CALLED TO [facility] AT [phone]. [facility] TO ARRANGE VAN TRANSPORTATION. CALL PT'S DAUGHTER IN LAW, GENESIS YU, , WITH VAN INTERNAL SALES TIME. Programs Manager: Gamaliel Riley DCP- Discharge Planning Updated by [id number]: Radhaterri Ladd on 11/03/18 9:[address] WENT INTO THE ROOM WITH ESPINOZA SUTTON TO SIGN THE ADVANCE DIRECTIVE AND POWER OF REGION MANAGER PAPERWORK. PATIENT ANSWERED ALL QUESTIONS ASKED APPROPRIATELY AND WAS ABLE TO REPEAT TO LESLEY WHAT THE PAPERWORK WAS FOR THAT SHE WAS SIGNING. BOTH FORMS WERE SIGNED AND THEN NOTARIZED. THE POA FORM HAS TO BE SIGNED BY THE SON, JV YU, STATING THAT HE ACCEPTS THE RESPONSIBILITY FOR IT TO BE LEGAL, AND PER LESLEY, IT CAN BE SIGNED AFTER NOTARIZED. THE SON'S [id number] WAS ABLE TO REACH JV PRIOR TO CM, AND HE IS AWARE THAT IT NEEDS TO BE SIGNED. I SPOKE WITH ANITA PORTER APN FOR DR CALVO ABOUT THE PATIENT BEING ACCEPTED TO [facility] FOR REHAB. IT WAS EXPLAINED TO HER THAT THE [facility] IS AWARE THAT THE PATIENT NEEDS HOSPICE AND IS REFUSING TO RECEIVE BLOOD OR START DIALYSIS. THEY KNOW THAT HER OUTLOOK IS GRIM, BUT THE PATIENT IS WANTING TO TRY REHAB FIRST. PER TALI, THE DON AT [facility], THEY HAVE A MOUNTING INSPECTOR CARE BED AVAILABLE AND ARE ABLE TO TRANSITION HER FROM REHAB WITH COMFORT CARE (THEY DO NOT DO HOSPICE AT THEIR FACILITY), IF THE REHAB DOES NOT WORK FOR HER. ANITA HAS SPOKE WITH DR CALVO AND STATED THAT THEY WILL NOT DISCHARGE THE PATIENT TO REHAB. THAT THE PATIENT IS NOT MEDICALLY STABLE TO GO TO REHAB. SHE MADE NOTE THAT THEY ARE AWARE THE PATIENT IS REFUSING CARE, BUT STATED THE [facility] WOULD PROBABLY JUST SENT HER BACK. AGAIN I EXPLAINED THE [facility] IS AWARE OF HER LABS AND THE SITUTATION AND HAS A PLAN IN PLACE, THAT THEY ARE TRYING TO HONOR PATIENTS WISHES TO TRY. END CONVERSATION BASICALLY WAS THE PATIENT WILL NOT DISCHARGE IF NOT DISCHARGING WITH HOSPICE. SHE TOOK THE SON'S NUMBER ([phone]) AND IS GOING TO HAVE DR CALVO CALL AND TALK TO THE SON. SHE EXPRESSED THAT SHE DID NOT FEEL THE PATIENT WAS CAPABLE OF MAKING HER OWN DECISIONS AND THEY NEEDED SOMEONE TO MAKE DECISIONS FOR HER. CM WILL WAIT FOR OUTCOME OF THIS. IN THE MEANTIME, ASHLEIGH HAS CALLED THE [facility] AND PUT A STOP TO TRANSPORT FOR THE TIME BEING. SPOKE WITH ANTHONY BLISS APN WITH THE RENAL GROUP. SHE HAS SPOKEN TO DR REESE ABOUT THE SITUTATION AND THEN TOLD ME AND ASHLEIGH THAT DR REESE IS GOING TO TALK WITH DR CALVO. AGAIN WE WILL WAIT FOR THE OUTCOME. LASTLY, I RECEIVED A PHONE CALL FROM ALEX, PATIENTS SON'S [id number]. SHE STATED THAT SHE HAS SPOKEN WITH JV AND HE IS CURRENTLY WORKING IN [employer] AND WILL BE OFF SHORTLY AFTER NOON, AND WILL COME STRAIGHT HERE AFTER TO SIGN PAPERS AND TALK TO THE DOCTORS. DCP- Discharge Planning Updated by [id number]: Gamaliel Riley on 11/03/18 9:[address] Patient Name: COLUMBA YU Encounter No: [id number] : 1935 Primary Insurance: MEDICARE A & B Anticipated DC Date: 11-03-2018 Planned Disposition: Shelter Facility External Planned Provider: [facility], UNKNOWN BED STATUS DCP follow-up note: CM RECEIVED CALL FROM TALI OF [facility], , THEY WILL ACCEPT TO TRY REHAB AT PT'S REQUEST AND CAN TRANSITION TO COMFORT CARE LONG FAMILY IS WILLING TO MAKE FINANCIAL ARRAGEMENTS FOR ROOM AND BOARD. [facility] CAN INTERNAL SALES PT AT 1130AM TODAY. CM NOTIFIED PT WHO IS IN AGREEMENT WITH PLAN. PT'S DAUGHTER IN LAW'S SISTER ASSISTED WITH FILLING OUT MEDICAL POWER OF REGION MANAGER AT PT'S REQUEST. PT COMPLETED MEDICAL POWER OF REGION MANAGER FOR HER SON WHO NEEDS TO SIGN ACCEPTANCE. CM NOTIFIED SANDEE PORTER. CM INFORMED THAT DR. CALVO WILL NOT DISCHARGE PT TO REHAB AND THAT IF DISCHARGED, IT WILL NEED TO BE WITH HOSPICE CARE. SANDEE PORTER INFORMED CM THAT DR. CALVO IS ATTEMPTING TO CALL AND SPEAK TO PT'S SON REGARDING PLAN AND TREATMENT. CM CALLED [facility], SPOKE TO TALI AND CANCELLED TRANSPORT ARRANGEMENTS. CM WAITING FOR DOCTOR AND PT'S SON TO DISCUSS PT'S CARE AND TREATMENT PLAN. CM TO CONTINUE TO FOLLOW AND ASSIST NEEDED. Gamaliel Riley, CASE MANAGEMENT DCP- Discharge Planning Updated by [id number]: Gamaliel Riley on 10/31/18 3:[address] Patient Name: COLUMBA YU Encounter No: [id number] : 1935 Primary Insurance: MEDICARE A & B Anticipated DC Date: 10-28-2018 Planned Disposition: Home DCP follow-up note: CM SPOKE TO DR. REESE WHO REPORTS PT'S RENAL FUNCTIONING APPEARS TO BE DECLINING. CM SPOKE TO PT IN ROOM REGARDING DISCHARGE PLANNING AND NEEDS. PT REPORTED TO CM THAT SHE THOUGHT SHE WOULD HAVE ALREADY BEEN DISCHARGED HOME AND DID NOT EXPECT TO STILL BE IN THE HOSPITAL. CM ASKED ABOUT WHAT THE DOCTORS HAVE BEEN TELLING HER. PT REPORTS SHE SPOKE TO DR. REESE AND UNDERSTANDS HER KINDEY CONDITION AND IF IT COMES TO NEEDING DIALYSIS, PT STATES SHE WILL NOT DO THAT. PT REPORTS THAT SHE UNDERSTANDS THAT IT WOULD MEAN SHE WOULD , BUT SHE IS COMFORABLE WITH THIS DECISION AND ALL OF HER ARRANGMENTS ARE MADE. PT DENIES NEEDS OF CM AT THIS TIME AND REPORTS PLAN TO DISCHARGE HOME WITH HER SON, BUT STATES SHE DOES NOT WANT TO BE A BURDEN TO ANYONE. IF PT NEEDS DIALYSIS, AT THIS TIME, SHE INDICATED TO CM THAT SHE WOULD NOT CONSENT TO IT. PT DENIES DISCHARGE NEEDS. PT CONTINUES TO PLAN TO DISCHARGE HOME WITH HER SON. CM WILL CONTINUE TO FOLLOW AND ASSIST NEEDED. Programs Manager: Gamaliel Riley DCP- Discharge Planning Updated by [id number]: Gamaliel Riley on 10/27/18 4:[address] Patient Name: COLUMBA YU Admission Status: Urgent Accout number: [id number] Admission Date: 10-27-2018 : 1935 Admission Diagnosis: Attending: JOURDAN, Current LOS: 1 Anticipated DC Date: 10-28-2018 Planned Disposition: Home Primary Insurance: MEDICARE A & B Discharge Planning Comments: CM RECEIVED REQUEST TO PROVIDE PT WITH ASSISTED LIVING INFORMATION. CM MET WITH PT IN ROOM TO DISCUSS DISCHARGE PLANNING AND NEEDS. PT REPORTS LIVING AT HOME INDEPENDENTLY WITH HER ADULT SON IN HIS HOME. PT REPORTS SHE HAS HER HOME NEXT DOOR TO HER SON'S ON HIS PROPERTY AND SIGNED EVERYTHING OVER TO HIM AT THE REGION MANAGER'S OFFICE. PT REPORTS HER GRANDDAUGHTER IS LIVING IN HER (PT'S) HOME AND PT IS LIVING IN A ROOM IN HER SON'S HOME NOW. PT REPORT ALL OF HER NICE BELONGINGS AND THINGS ARE IN HER HOME AND NONE WILL BE MOVED UNTIL SHE DIES. PT REPORTS HER SON WILL GET HER HOUSE AND HER DAUGHTER WILL GET EVERYTHING OUT OF THE HOUSE, EVEN THOUGH SHE DOES NOT WANT IT. PT HAS A WALKER THAT SHE DOES NOT USE, FROM [employer]. PT HAS NO OUTSIDE SERVICES ASSISTING IN THE HOME. CM DISCUSSED AVAILABILITY OF HOME HEALTH, REHAB SERVICES AND MEDICAL EQUIPMENT. PT DENIES DISCHARGE NEEDS, REPORTS HER SON WILL PICK HER UP FOR DISCHARGE HOME CM PROVIDED ASSISTED AND INDEPENDENT LIVING INFORMATION, DISCUSSED COSTS. PT REPORTS SHE WANTS AN APARTMENT AT [facility] OR [facility] AND NO WHERE ELSE. PT REPORTS SHE CANNOT AFFORD EITHER ONE, AND HAS INCOME OF $1,300 PER MONTH. PT KNOWS THAT EXCEPTIONS CAN BE MADE AND A MIRACLE CAN HAPPEN AND SHE MAY COULD GET IN. CM EXPLAINED THAT ALL ASSISTED LIVINGS ARE A BUSINESS AND THAT IF SHE CANNOT PAY THE RATE SHE WILL NOT GET IN. CM PROVIDED PT WITH A PLACE FOR MOM REFERRAL SERVICE. PT REPORTS IT TO BE OK TO DISCUSS DISCHARGE PLANNING WITH HER SON WELL TREATMENT INFORMATION. CM OFFERED TO CALL ROJELIO OF A PLACE FOR MOM AND HAVE ROJELIO CALL HER AND HER SON TO SEE WHAT IS AVAILABLE IN PT'S R[place]DER RANGE. PT ACCEPTED. CM CALLED ROJELIO OF A PLACE FOR MOM, , PROVIDED REFERRAL INFORMATION. ROJELIO LATER CALLED AND INFORMED CM THAT PT DID NOT ANSWER THE PHONE IN THE ROOM BUT SHE CALLED PT'S SON, JV AND PT'S BUDGET DOES NOT ALLOW WHAT PT WANTS AND THAT ROJELIO AND PT'S SON WILL CONTINUE TO SEEK OPTIONS FOR PT. PT DENIES DISCHARGE NEEDS. PT PLANS TO DISCHARGE HOME WITH HER SON WHERE SHE REPORTS TO BE SAFE. PT'S SON AND ROJELIO OF A PLACE FOR MOM WILL CONTINUE TO SEEK INDEPENDENT OR ASSISTED LIVING FOR PT THAT SHE CAN ACTUALLY AFFORD, IF ANY. Programs Manager: Gamaliel Riley DCPIA - Discharge Planning Initial Assessment Updated by [id number]: Gamaliel Riley on 10/27/18 5:43 pm * Is the patient Alert and Oriented? Yes * How many steps to enter\exit or inside your home? * PCP DR. SOLIMAN * Pharmacy [facility] IN [place] * Preadmission Environment Home with Family * ADLs Independent * Equipment Walker * Other Equipment DOES NOT USE ANY MEDICAL EQUIPMENT [employer] - MEDICAL EQUIPMENT PROVIDER * List name and contact numbers for known caregivers / representatives who currently or will assist patient after discharge: JV YU, SON, * Verbal permission to speak to the caregivers and representatives has been obtained from the patient. Yes * Community resources currently utilized None * Please name any agencies selected above. NONE * Additional services required to return to the preadmission environment? No * Can the patient safely return to the preadmission environment? Yes * Has this patient been hospitalized within the prior 30 days at any hospital? No Coverage Notice Reviewer: [id number] Riley Notice Issued Date-Time: 11/02/2018 12:50 Notice Type: Patient Choice Letter Notice Delivered To: Patient Relationship to Patient: Mounted Police Name: Delivery Method: HAND - Hand Delivered Karla Days: Prior Verbal Notification: Recipient Understood Notice: Yes Recipient Signature: Yes Med Rec Note Co-signed by Attending: Coverage Notice Comment: [facility] Reviewer: [id number] Riley Notice Issued Date-Time: 11/02/2018 12:50 Notice Type: IM Discharge Notice Notice Delivered To: Patient Relationship to Patient: Mounted Police Name: Delivery Method: HAND - Hand Delivered Karla Days: Prior Verbal Notification: Recipient Understood Notice: Yes Recipient Signature: Yes Med Rec Note Co-signed by Attending: Coverage Notice Comment: Last DP export: 11/03/18 2:04 pm Patient Name: COLUMBA YU Page 19986 at 1513 All edits/amendments must be made on the electronic document DICTATION DATE: 11/03/181512 METAL WEATHER STRIPPER: IAIN 11/03/18 151 RPT#: [id number] DC DATE: STATUS: ADM IN [facility] [address] [place] [address] END OF REPORT
--- NOTE | 2018-11-03 15:26 | MORECARE ---
CASE MANAGEMENT DISCHARGE SUMMARY PATIENT: COLUMBA YU UNIT: [id number] ADM DATE: 10/27/18 AGE: 83 : 34 SEX: F ROOM/BED: D.9096 AUTHOR: JUSTYNA,DOC PHYSICIAN: REFERRING PHYSICIAN: TIMOTHY SOLIMAN MD DATE OF SERVICE: 11/03/18 Discharge Plan Patient Name: COLUMBA YU Facility: [facility]:[place] : 1935 Planned Disposition: Fdc Facility Anticipated Discharge Date: 11/04/18 Discharge Date: Expected LOS: 8 Initial Reviewer: [id number] Initial Review Date: 10/27/2018 Generated: 11/03/18 4:26 pm Comments DCP- Discharge Planning Updated by [id number]: Gamaliel Riley on 11/03/18 2:[address] Patient Name: COLUMBA YU Encounter No: [id number] : 1935 Primary Insurance: MEDICARE A & B Anticipated DC Date: 11-04-2018 Planned Disposition: Fdc Facility External Planned Provider: [facility], SKILLED MEDICARE BED Discharge Planning Comments: PAULINE SPOKE TO DR. CALVO AND SANDEE PORTER, WILL DISCHARGE PT TO PRIVATE PAY COMFORT CARE BED OR SKILLED BED. [facility] [employer] SPOKE TO PT, PT'S SON AND DAUGHTER IN LAW IN ROOM. PT'S SON REQUESTED SKILLED REHAB BED PT WOULD LIKE TO GET STONGER AND GIVE FAMILY A CHANCE TO WORK OUT FINANCES FOR LONGTERM CARE OR COMFORT CARE AT THE [facility] IF NEEDED. CM CALLED TALI AT [facility] WHO IS STILL WILLING TO ADMIT TOMORROW IN SKILLED BED FOR REHAB SERVICES, WILL ARRANGE FOR REFUELING RAMP ATTENDANT IN THE MORNING, 11-04-18. CM NOTIFIED SANDEE PORTER. FOR DISCHARGE ON 11-04-18, FAX DISCHARGE INFORMATION TO [facility] AT [phone]; NURSE REPORT TO BE CALLED TO [facility] AT [phone]. [facility] TO ARRANGE VAN TRANSPORTATION. CALL PT'S DAUGHTER IN LAW, GENESIS YU, , WITH VAN REFUELING RAMP ATTENDANT TIME. Environmental Aid: Gamaliel Riley DCP- Discharge Planning Updated by [id number]: Radha Ladd on 11/03/18 9:[address] WENT INTO THE ROOM WITH ESPINOZA SUTTON TO SIGN THE ADVANCE DIRECTIVE AND POWER OF MINE MANAGER PAPERWORK. PATIENT ANSWERED ALL QUESTIONS ASKED APPROPRIATELY AND WAS ABLE TO REPEAT TO LESLEY WHAT THE PAPERWORK WAS FOR THAT SHE WAS SIGNING. BOTH FORMS WERE SIGNED AND THEN NOTARIZED. THE POA FORM HAS TO BE SIGNED BY THE SON, JV YU, STATING THAT HE ACCEPTS THE RESPONSIBILITY FOR IT TO BE LEGAL, AND PER LESLEY, IT CAN BE SIGNED AFTER NOTARIZED. THE SON'S [id number] WAS ABLE TO REACH JV PRIOR TO CM, AND HE IS AWARE THAT IT NEEDS TO BE SIGNED. I SPOKE WITH ANITA PORTER APN FOR DR CALVO ABOUT THE PATIENT BEING ACCEPTED TO [facility] FOR REHAB. IT WAS EXPLAINED TO HER THAT THE [facility] IS AWARE THAT THE PATIENT NEEDS HOSPICE AND IS REFUSING TO RECEIVE BLOOD OR START DIALYSIS. THEY KNOW THAT HER OUTLOOK IS GRIM, BUT THE PATIENT IS WANTING TO TRY REHAB FIRST. PER TALI, THE DON AT [facility], THEY HAVE A LONGTERM CARE BED AVAILABLE AND ARE ABLE TO TRANSITION HER FROM REHAB WITH COMFORT CARE (THEY DO NOT DO HOSPICE AT THEIR FACILITY), IF THE REHAB DOES NOT WORK FOR HER. ANITA HAS SPOKE WITH DR CALVO AND STATED THAT THEY WILL NOT DISCHARGE THE PATIENT TO REHAB. THAT THE PATIENT IS NOT MEDICALLY STABLE TO GO TO REHAB. SHE MADE NOTE THAT THEY ARE AWARE THE PATIENT IS REFUSING CARE, BUT STATED THE [facility] WOULD PROBABLY JUST SENT HER BACK. AGAIN I EXPLAINED THE [facility] IS AWARE OF HER LABS AND THE SITUTATION AND HAS A PLAN IN PLACE, THAT THEY ARE TRYING TO HONOR PATIENTS WISHES TO TRY. END CONVERSATION BASICALLY WAS THE PATIENT WILL NOT DISCHARGE IF NOT DISCHARGING WITH HOSPICE. SHE TOOK THE SON'S NUMBER ([phone]) AND IS GOING TO HAVE DR CALVO CALL AND TALK TO THE SON. SHE EXPRESSED THAT SHE DID NOT FEEL THE PATIENT WAS CAPABLE OF MAKING HER OWN DECISIONS AND THEY NEEDED SOMEONE TO MAKE DECISIONS FOR HER. CM WILL WAIT FOR OUTCOME OF THIS. IN THE MEANTIME, ASHLEIGH HAS CALLED THE [facility] AND PUT A STOP TO TRANSPORT FOR THE TIME BEING. SPOKE WITH ANTHONY BLISS APN WITH THE RENAL GROUP. SHE HAS SPOKEN TO DR REESE ABOUT THE SITUTATION AND THEN TOLD ME AND ASHLEIGH THAT DR REESE IS GOING TO TALK WITH DR CALVO. AGAIN WE WILL WAIT FOR THE OUTCOME. LASTLY, I RECEIVED A PHONE CALL FROM ALEX, PATIENTS SON'S [id number]. SHE STATED THAT SHE HAS SPOKEN WITH JV AND HE IS CURRENTLY WORKING IN [employer] AND WILL BE OFF SHORTLY AFTER NOON, AND WILL COME STRAIGHT HERE AFTER TO SIGN PAPERS AND TALK TO THE DOCTORS. DCP- Discharge Planning Updated by [id number]: Gamaliel Riley on 11/03/18 9:[address] Patient Name: COLUMBA YU Encounter No: [id number] : 1935 Primary Insurance: MEDICARE A & B Anticipated DC Date: 11-03-2018 Planned Disposition: Fdc Facility External Planned Provider: [facility], UNKNOWN BED STATUS DCP follow-up note: CM RECEIVED CALL FROM TALI OF [facility], , THEY WILL ACCEPT TO TRY REHAB AT PT'S REQUEST AND CAN TRANSITION TO COMFORT CARE LONG FAMILY IS WILLING TO MAKE FINANCIAL ARRAGEMENTS FOR ROOM AND BOARD. [facility] CAN REFUELING RAMP ATTENDANT PT AT 1130AM TODAY. CM NOTIFIED PT WHO IS IN AGREEMENT WITH PLAN. PT'S DAUGHTER IN LAW'S SISTER ASSISTED WITH FILLING OUT MEDICAL POWER OF MINE MANAGER AT PT'S REQUEST. PT COMPLETED MEDICAL POWER OF MINE MANAGER FOR HER SON WHO NEEDS TO SIGN ACCEPTANCE. CM NOTIFIED SANDEE PORTER. CM INFORMED THAT DR. CALVO WILL NOT DISCHARGE PT TO REHAB AND THAT IF DISCHARGED, IT WILL NEED TO BE WITH HOSPICE CARE. SANDEE PORTER INFORMED CM THAT DR. CALVO IS ATTEMPTING TO CALL AND SPEAK TO PT'S SON REGARDING PLAN AND TREATMENT. CM CALLED [facility], SPOKE TO TALI AND CANCELLED TRANSPORT ARRANGEMENTS. CM WAITING FOR DOCTOR AND PT'S SON TO DISCUSS PT'S CARE AND TREATMENT PLAN. CM TO CONTINUE TO FOLLOW AND ASSIST NEEDED. Gamaliel Riley, CASE MANAGEMENT DCP- Discharge Planning Updated by [id number]: Gamaliel Riley on 10/31/18 3:[address] Patient Name: COLUMBA YU Encounter No: [id number] : 1935 Primary Insurance: MEDICARE A & B Anticipated DC Date: 10-28-2018 Planned Disposition: Home DCP follow-up note: CM SPOKE TO DR. REESE WHO REPORTS PT'S RENAL FUNCTIONING APPEARS TO BE DECLINING. CM SPOKE TO PT IN ROOM REGARDING DISCHARGE PLANNING AND NEEDS. PT REPORTED TO CM THAT SHE THOUGHT SHE WOULD HAVE ALREADY BEEN DISCHARGED HOME AND DID NOT EXPECT TO STILL BE IN THE HOSPITAL. CM ASKED ABOUT WHAT THE DOCTORS HAVE BEEN TELLING HER. PT REPORTS SHE SPOKE TO DR. REESE AND UNDERSTANDS HER KINDEY CONDITION AND IF IT COMES TO NEEDING DIALYSIS, PT STATES SHE WILL NOT DO THAT. PT REPORTS THAT SHE UNDERSTANDS THAT IT WOULD MEAN SHE WOULD , BUT SHE IS COMFORABLE WITH THIS DECISION AND ALL OF HER ARRANGMENTS ARE MADE. PT DENIES NEEDS OF CM AT THIS TIME AND REPORTS PLAN TO DISCHARGE HOME WITH HER SON, BUT STATES SHE DOES NOT WANT TO BE A BURDEN TO ANYONE. IF PT NEEDS DIALYSIS, AT THIS TIME, SHE INDICATED TO CM THAT SHE WOULD NOT CONSENT TO IT. PT DENIES DISCHARGE NEEDS. PT CONTINUES TO PLAN TO DISCHARGE HOME WITH HER SON. CM WILL CONTINUE TO FOLLOW AND ASSIST NEEDED. Environmental Aid: Gamaliel Riley DCP- Discharge Planning Updated by [id number]: Gamaliel Riley on 10/27/18 4:[address] Patient Name: COLUMBA YU Admission Status: Urgent Accout number: [id number] Admission Date: 10-27-2018 : 1935 Admission Diagnosis: Attending: JOURDAN Current LOS: 1 Anticipated DC Date: 10-28-2018 Planned Disposition: Home Primary Insurance: MEDICARE A & B Discharge Planning Comments: CM RECEIVED REQUEST TO PROVIDE PT WITH ASSISTED LIVING INFORMATION. CM MET WITH PT IN ROOM TO DISCUSS DISCHARGE PLANNING AND NEEDS. PT REPORTS LIVING AT HOME INDEPENDENTLY WITH HER ADULT SON IN HIS HOME. PT REPORTS SHE HAS HER HOME NEXT DOOR TO HER SON'S ON HIS PROPERTY AND SIGNED EVERYTHING OVER TO HIM AT THE MINE MANAGER'S OFFICE. PT REPORTS HER GRANDDAUGHTER IS LIVING IN HER (PT'S) HOME AND PT IS LIVING IN A ROOM IN HER SON'S HOME NOW. PT REPORT ALL OF HER NICE BELONGINGS AND THINGS ARE IN HER HOME AND NONE WILL BE MOVED UNTIL SHE DIES. PT REPORTS HER SON WILL GET HER HOUSE AND HER DAUGHTER WILL GET EVERYTHING OUT OF THE HOUSE, EVEN THOUGH SHE DOES NOT WANT IT. PT HAS A WALKER THAT SHE DOES NOT USE, FROM [employer]. PT HAS NO OUTSIDE SERVICES ASSISTING IN THE HOME. CM DISCUSSED AVAILABILITY OF HOME HEALTH, REHAB SERVICES AND MEDICAL EQUIPMENT. PT DENIES DISCHARGE NEEDS, REPORTS HER SON WILL PICK HER UP FOR DISCHARGE HOME CM PROVIDED ASSISTED AND INDEPENDENT LIVING INFORMATION, DISCUSSED COSTS. PT REPORTS SHE WANTS AN APARTMENT AT [facility] OR [facility] LIVING AND NO WHERE ELSE. PT REPORTS SHE CANNOT AFFORD EITHER ONE, AND HAS INCOME OF $1,300 PER MONTH. PT KNOWS THAT EXCEPTIONS CAN BE MADE AND A MIRACLE CAN HAPPEN AND SHE MAY COULD GET IN. CM EXPLAINED THAT ALL ASSISTED LIVINGS ARE A BUSINESS AND THAT IF SHE CANNOT PAY THE RATE SHE WILL NOT GET IN. CM PROVIDED PT WITH A PLACE FOR MOM REFERRAL SERVICE. PT REPORTS IT TO BE OK TO DISCUSS DISCHARGE PLANNING WITH HER SON WELL TREATMENT INFORMATION. CM OFFERED TO CALL ROJELIO OF A PLACE FOR MOM AND HAVE ROJELIO CALL HER AND HER SON TO SEE WHAT IS AVAILABLE IN PT'S [place]DER RANGE. PT ACCEPTED. CM CALLED ROJELIO OF A PLACE FOR MOM, , PROVIDED REFERRAL INFORMATION. ROJELIO LATER CALLED AND INFORMED CM THAT PT DID NOT ANSWER THE PHONE IN THE ROOM BUT SHE CALLED PT'S SON, JV AND PT'S BUDGET DOES NOT ALLOW WHAT PT WANTS AND THAT ROJELIO AND PT'S SON WILL CONTINUE TO SEEK OPTIONS FOR PT. PT DENIES DISCHARGE NEEDS. PT PLANS TO DISCHARGE HOME WITH HER SON WHERE SHE REPORTS TO BE SAFE. PT'S SON AND ROJELIO OF A PLACE FOR MOM WILL CONTINUE TO SEEK INDEPENDENT OR ASSISTED LIVING FOR PT THAT SHE CAN ACTUALLY AFFORD, IF ANY. Environmental Aid: Gamaliel Riley DCPIA - Discharge Planning Initial Assessment Updated by [id number]: Gamaliel Riley on 10/27/18 5:43 pm * Is the patient Alert and Oriented? Yes * How many steps to enter\exit or inside your home? * PCP DR. SOLIMAN * Pharmacy [facility] IN [place] * Preadmission Environment Home with Family * ADLs Independent * Equipment Walker * Other Equipment DOES NOT USE ANY MEDICAL EQUIPMENT [employer] - MEDICAL EQUIPMENT PROVIDER * List name and contact numbers for known caregivers / representatives who currently or will assist patient after discharge: JV YU, SON, * Verbal permission to speak to the caregivers and representatives has been obtained from the patient. Yes * Community resources currently utilized None * Please name any agencies selected above. NONE * Additional services required to return to the preadmission environment? No * Can the patient safely return to the preadmission environment? Yes * Has this patient been hospitalized within the prior 30 days at any hospital? No Coverage Notice Reviewer: [id number] Danita Riley Notice Issued Date-Time: 11/02/2018 12:50 Notice Type: Patient Choice Letter Notice Delivered To: Patient Relationship to Patient: Lumber Sticker Name: Delivery Method: HAND - Hand Delivered Karla Days: Prior Verbal Notification: Recipient Understood Notice: Yes Recipient Signature: Yes Med Rec Note Co-signed by Attending: Coverage Notice Comment: [facility] Reviewer: [id number] Dnaita Riley Notice Issued Date-Time: 11/02/2018 12:50 Notice Type: IM Discharge Notice Notice Delivered To: Patient Relationship to Patient: Lumber Sticker Name: Delivery Method: HAND - Hand Delivered Karla Days: Prior Verbal Notification: Recipient Understood Notice: Yes Recipient Signature: Yes Med Rec Note Co-signed by Attending: Coverage Notice Comment: Last DP export: 11/03/18 2:13 pm Patient Name: COLUMBA YU Page [id number] at 1526 All edits/amendments must be made on the electronic document DICTATION DATE: 11/03/18 1525 BLISTER PACKAGING MACHINE OPERATOR: IAIN 11/03/18 1525 RPT#: [id number] DC DATE: STATUS: ADM IN [facility] [address] [place] [address] END OF REPORT
[2018-11-03 16:40] VITALS: BP 118/43
--- NOTE | 2018-11-03 17:41 | NUR ---
UP IN BEDSIDE CHAIR. DENIES ANY NEEDS.TELEMERTY SHOWS SR. WILL MONITOR
[2018-11-03 20:00] VITALS: BP 106/36
--- NOTE | 2018-11-03 20:19 | NUR ---
RESUMED CARE OF PT, UP IN CHAIR RESPIRAITONS EVEN AND UNLABORED ON ROOM AIR. 65 SR ON TELEMETRY. LEFT FOREARM SALINE LOCKED. ASSISSTED TO RESTROOM AND BACK TO CHAIR. STARLA ALARM ON AND FUNCTIONING. NO FURTHER NEEDS AT THIS TIME, CALL LIGHT IN REACH. SEE NURSE ASSESSMENT.
[2018-11-04] VITALS: BP 117/33
[2018-11-04 04:00] VITALS: BP 125/53
--- NOTE | 2018-11-04 08:49 | MORECARE ---
CASE MANAGEMENT DISCHARGE SUMMARY PATIENT: COLUMBA UY UNIT: [id number] ADM DATE: 10/27/18 AGE: 83 : 34 SEX: F ROOM/BED: D.6165 AUTHOR: JUSTYNA,DOC PHYSICIAN: REFERRING PHYSICIAN: TIMOTHY SOLIMAN MD DATE OF SERVICE: 11/04/18 Discharge Plan Patient Name: COLUMBA YU Facility: [facility]:[place] : 1935 Planned Disposition: Nursing Home Facility Anticipated Discharge Date: 11/04/18 Discharge Date: Expected LOS: 8 Initial Reviewer: [id number] Initial Review Date: 10/27/2018 Generated: 11/04/18 9:49 am Comments DCP- Discharge Planning Updated by [id number]: Gamaliel Riley on 11/03/18 2:[address] Patient Name: COLUMBA YU Encounter No: [id number] : 1935 Primary Insurance: MEDICARE A & B Anticipated DC Date: 11-04-2018 Planned Disposition: Nursing Home Facility External Planned Provider: [facility], SKILLED MEDICARE BED Discharge Planning Comments: PAULINE SPOKE TO DR. CALVO AND SANDEE PORTER, WILL DISCHARGE PT TO PRIVATE PAY COMFORT CARE BED OR SKILLED BED. [facility] SPOKE TO PT, PT'S SON AND DAUGHTER IN LAW IN ROOM. PT'S SON REQUESTED SKILLED REHAB BED PT WOULD LIKE TO GET STONGER AND GIVE FAMILY A CHANCE TO WORK OUT FINANCES FOR INTERMEDIATE CARE OR COMFORT CARE AT [facility] IF NEEDED. CM CALLED TALI AT [facility] WHO IS STILL WILLING TO ADMIT TOMORROW IN SKILLED BED FOR REHAB SERVICES, WILL ARRANGE FOR BEHAVIOR INTERVENTIONIST IN THE MORNING, 11-04-18. CM NOTIFIED SANDEE PORTER. FOR DISCHARGE ON 11-04-18, FAX DISCHARGE INFORMATION TO [facility] AT [phone]; NURSE REPORT TO BE CALLED TO [facility] AT [phone]. [facility] TO ARRANGE VAN TRANSPORTATION. CALL PT'S DAUGHTER IN LAW, GENESIS YU, , WITH VAN BEHAVIOR INTERVENTIONIST TIME. Director Telehealth: Gamaliel Riley DCP- Discharge Planning Updated by [id number]: Radha Ladd on 11/03/18 9:[address] WENT INTO THE ROOM WITH ESPINOZA SUTTON TO SIGN THE ADVANCE DIRECTIVE AND POWER OF INTERNATIONAL TRADE TEACHER PAPERWORK. PATIENT ANSWERED ALL QUESTIONS ASKED APPROPRIATELY AND WAS ABLE TO REPEAT TO LESLEY WHAT THE PAPERWORK WAS FOR THAT SHE WAS SIGNING. BOTH FORMS WERE SIGNED AND THEN NOTARIZED. THE POA FORM HAS TO BE SIGNED BY THE SON, JV YU, STATING THAT HE ACCEPTS THE RESPONSIBILITY FOR IT TO BE LEGAL, AND PER LESLEY, IT CAN BE SIGNED AFTER NOTARIZED. THE SON'S [id number] WAS ABLE TO REACH JV PRIOR TO CM, AND HE IS AWARE THAT IT NEEDS TO BE SIGNED. I SPOKE WITH ANITA PORTER APN FOR DR CALVO ABOUT THE PATIENT BEING ACCEPTED TO [facility] FOR REHAB. IT WAS EXPLAINED TO HER THAT [facility] IS AWARE THAT THE PATIENT NEEDS HOSPICE AND IS REFUSING TO RECEIVE BLOOD OR START DIALYSIS. THEY KNOW THAT HER OUTLOOK IS GRIM, BUT THE PATIENT IS WANTING TO TRY REHAB FIRST. PER TALI, THE DON AT [facility], THEY HAVE A INTERMEDIATE CARE BED AVAILABLE AND ARE ABLE TO TRANSITION HER FROM REHAB WITH COMFORT CARE (THEY DO NOT DO HOSPICE AT THEIR FACILITY), IF THE REHAB DOES NOT WORK FOR HER. ANITA HAS SPOKE WITH DR CALVO AND STATED THAT THEY WILL NOT DISCHARGE THE PATIENT TO REHAB. THAT THE PATIENT IS NOT MEDICALLY STABLE TO GO TO REHAB. SHE MADE NOTE THAT THEY ARE AWARE THE PATIENT IS REFUSING CARE, BUT STATED THE [facility] WOULD PROBABLY JUST SENT HER BACK. AGAIN I EXPLAINED THE [facility] IS AWARE OF HER LABS AND THE SITUTATION AND HAS A PLAN IN PLACE, THAT THEY ARE TRYING TO HONOR PATIENTS WISHES TO TRY. END CONVERSATION BASICALLY WAS THE PATIENT WILL NOT DISCHARGE IF NOT DISCHARGING WITH HOSPICE. SHE TOOK THE SON'S NUMBER ([phone]) AND IS GOING TO HAVE DR CALVO CALL AND TALK TO THE SON. SHE EXPRESSED THAT SHE DID NOT FEEL THE PATIENT WAS CAPABLE OF MAKING HER OWN DECISIONS AND THEY NEEDED SOMEONE TO MAKE DECISIONS FOR HER. CM WILL WAIT FOR OUTCOME OF THIS. IN THE MEANTIME, ASHLEIGH HAS CALLED THE [facility] AND PUT A STOP TO TRANSPORT FOR THE TIME BEING. SPOKE WITH ANTHONY BLISS APN WITH THE RENAL GROUP. SHE HAS SPOKEN TO DR REESE ABOUT THE SITUTATION AND THEN TOLD ME AND ASHLEIGH THAT DR REESE IS GOING TO TALK WITH DR CALVO. AGAIN WE WILL WAIT FOR THE OUTCOME. LASTLY, I RECEIVED A PHONE CALL FROM ALEX, PATIENTS SON'S [id number]. SHE STATED THAT SHE HAS SPOKEN WITH JV AND HE IS CURRENTLY WORKING IN [employer] [employer] AND WILL BE OFF SHORTLY AFTER NOON, AND WILL COME STRAIGHT HERE AFTER TO SIGN PAPERS AND TALK TO THE DOCTORS. DCP- Discharge Planning Updated by [id number]: Gamaliel Riley on 11/03/18 9:[address] Patient Name: COLUMBA YU Encounter No: [id number] : 1935 Primary Insurance: MEDICARE A & B Anticipated DC Date: 11-03-2018 Planned Disposition: Nursing Home Facility External Planned Provider: [facility], UNKNOWN BED STATUS DCP follow-up note: CM RECEIVED CALL FROM TALI OF [facility], , THEY WILL ACCEPT TO TRY REHAB AT PT'S REQUEST AND CAN TRANSITION TO COMFORT CARE LONG FAMILY IS WILLING TO MAKE FINANCIAL ARRAGEMENTS FOR ROOM AND BOARD. [facility] CAN BEHAVIOR INTERVENTIONIST PT AT 1130AM TODAY. CM NOTIFIED PT WHO IS IN AGREEMENT WITH PLAN. PT'S DAUGHTER IN LAW'S SISTER ASSISTED WITH FILLING OUT MEDICAL POWER OF INTERNATIONAL TRADE TEACHER AT PT'S REQUEST. PT COMPLETED MEDICAL POWER OF INTERNATIONAL TRADE TEACHER FOR HER SON WHO NEEDS TO SIGN ACCEPTANCE. CM NOTIFIED SANDEE PORTER. CM INFORMED THAT DR. CALVO WILL NOT DISCHARGE PT TO REHAB AND THAT IF DISCHARGED, IT WILL NEED TO BE WITH HOSPICE CARE. SANDEE PORTER INFORMED CM THAT DR. CALVO IS ATTEMPTING TO CALL AND SPEAK TO PT'S SON REGARDING PLAN AND TREATMENT. CM CALLED [facility], SPOKE TO TALI AND CANCELLED TRANSPORT ARRANGEMENTS. CM WAITING FOR DOCTOR AND PT'S SON TO DISCUSS PT'S CARE AND TREATMENT PLAN. CM TO CONTINUE TO FOLLOW AND ASSIST NEEDED. Gamaliel Riley, CASE MANAGEMENT DCP- Discharge Planning Updated by [id number]: Gamaliel Riley on 10/31/18 3:[address] Patient Name: COLUMBA YU Encounter No: [id number] : 1935 Primary Insurance: MEDICARE A & B Anticipated DC Date: 10-28-2018 Planned Disposition: Home DCP follow-up note: CM SPOKE TO DR. REESE WHO REPORTS PT'S RENAL FUNCTIONING APPEARS TO BE DECLINING. CM SPOKE TO PT IN ROOM REGARDING DISCHARGE PLANNING AND NEEDS. PT REPORTED TO CM THAT SHE THOUGHT SHE WOULD HAVE ALREADY BEEN DISCHARGED HOME AND DID NOT EXPECT TO STILL BE IN THE HOSPITAL. CM ASKED ABOUT WHAT THE DOCTORS HAVE BEEN TELLING HER. PT REPORTS SHE SPOKE TO DR. REESE AND UNDERSTANDS HER KINDEY CONDITION AND IF IT COMES TO NEEDING DIALYSIS, PT STATES SHE WILL NOT DO THAT. PT REPORTS THAT SHE UNDERSTANDS THAT IT WOULD MEAN SHE WOULD , BUT SHE IS COMFORABLE WITH THIS DECISION AND ALL OF HER ARRANGMENTS ARE MADE. PT DENIES NEEDS OF CM AT THIS TIME AND REPORTS PLAN TO DISCHARGE HOME WITH HER SON, BUT STATES SHE DOES NOT WANT TO BE A BURDEN TO ANYONE. IF PT NEEDS DIALYSIS, AT THIS TIME, SHE INDICATED TO CM THAT SHE WOULD NOT CONSENT TO IT. PT DENIES DISCHARGE NEEDS. PT CONTINUES TO PLAN TO DISCHARGE HOME WITH HER SON. CM WILL CONTINUE TO FOLLOW AND ASSIST NEEDED. Director Telehealth: Gamaliel Riley DCP- Discharge Planning Updated by [id number]: Gamaliel Riley on 10/27/18 4:[address] Patient Name: COLUMBA YU Admission Status: Urgent Accout number: [id number] Admission Date: 10-27-2018 : 1935 Admission Diagnosis: Attending: JOURDAN Current LOS: 1 Anticipated DC Date: 10-28-2018 Planned Disposition: Home Primary Insurance: MEDICARE A & B Discharge Planning Comments: CM RECEIVED REQUEST TO PROVIDE PT WITH ASSISTED LIVING INFORMATION. CM MET WITH PT IN ROOM TO DISCUSS DISCHARGE PLANNING AND NEEDS. PT REPORTS LIVING AT HOME INDEPENDENTLY WITH HER ADULT SON IN HIS HOME. PT REPORTS SHE HAS HER HOME NEXT DOOR TO HER SON'S ON HIS PROPERTY AND SIGNED EVERYTHING OVER TO HIM AT THE INTERNATIONAL TRADE TEACHER'S OFFICE. PT REPORTS HER GRANDDAUGHTER IS LIVING IN HER (PT'S) HOME AND PT IS LIVING IN A ROOM IN HER SON'S HOME NOW. PT REPORT ALL OF HER NICE BELONGINGS AND THINGS ARE IN HER HOME AND NONE WILL BE MOVED UNTIL SHE DIES. PT REPORTS HER SON WILL GET HER HOUSE AND HER DAUGHTER WILL GET EVERYTHING OUT OF THE HOUSE, EVEN THOUGH SHE DOES NOT WANT IT. PT HAS A WALKER THAT SHE DOES NOT USE, FROM [employer]. PT HAS NO OUTSIDE SERVICES ASSISTING IN THE HOME. CM DISCUSSED AVAILABILITY OF HOME HEALTH, REHAB SERVICES AND MEDICAL EQUIPMENT. PT DENIES DISCHARGE NEEDS, REPORTS HER SON WILL PICK HER UP FOR DISCHARGE HOME CM PROVIDED ASSISTED AND INDEPENDENT LIVING INFORMATION, DISCUSSED COSTS. PT REPORTS SHE WANTS AN APARTMENT AT [facility] OR [facility] AND NO WHERE ELSE. PT REPORTS SHE CANNOT AFFORD EITHER ONE, AND HAS INCOME OF $1,300 PER MONTH. PT KNOWS THAT EXCEPTIONS CAN BE MADE AND A MIRACLE CAN HAPPEN AND SHE MAY COULD GET IN. CM EXPLAINED THAT ALL ASSISTED LIVINGS ARE A BUSINESS AND THAT IF SHE CANNOT PAY THE RATE SHE WILL NOT GET IN. CM PROVIDED PT WITH A PLACE FOR MOM REFERRAL SERVICE. PT REPORTS IT TO BE OK TO DISCUSS DISCHARGE PLANNING WITH HER SON WELL TREATMENT INFORMATION. CM OFFERED TO CALL ROJELIO OF [facility] AND HAVE ROJELIO CALL HER AND HER SON TO SEE WHAT IS AVAILABLE IN PT'S [place] RANGE. PT ACCEPTED. CM CALLED RO[facility]EL[facility] OF [facility], , PROVIDED REFERRAL INFORMATION. ROJELIO LATER CALLED AND INFORMED CM THAT PT DID NOT ANSWER THE PHONE IN THE ROOM BUT SHE CALLED PT'S SON, JV AND PT'S BUDGET DOES NOT ALLOW WHAT PT WANTS AND THAT ROJELIO AND PT'S SON WILL CONTINUE TO SEEK OPTIONS FOR PT. PT DENIES DISCHARGE NEEDS. PT PLANS TO DISCHARGE HOME WITH HER SON WHERE SHE REPORTS TO BE SAFE. PT'S SON AND [facility] WILL CONTINUE TO SEEK INDEPENDENT OR ASSISTED LIVING FOR PT THAT SHE CAN ACTUALLY AFFORD, IF ANY. Director Telehealth: Gamaliel Riley DCPIA - Discharge Planning Initial Assessment Updated by [id number]: Gamaliel Riley on 10/27/18 5:43 pm * Is the patient Alert and Oriented? Yes * How many steps to enter\exit or inside your home? * PCP DR. SOLIMAN * Pharmacy [facility] IN [place] * Preadmission Environment Home with Family * ADLs Independent * Equipment Walker * Other Equipment DOES NOT USE ANY MEDICAL EQUIPMENT [employer] - MEDICAL EQUIPMENT PROVIDER * List name and contact numbers for known caregivers / representatives who currently or will assist patient after discharge: JV YU, SON, * Verbal permission to speak to the caregivers and representatives has been obtained from the patient. Yes * Community resources currently utilized None * Please name any agencies selected above. NONE * Additional services required to return to the preadmission environment? No * Can the patient safely return to the preadmission environment? Yes * Has this patient been hospitalized within the prior 30 days at any hospital? No Coverage Notice Reviewer: [id number] Danita Riley Notice Issued Date-Time: 11/02/2018 12:50 Notice Type: Patient Choice Letter Notice Delivered To: Patient Relationship to Patient: Supervisor Blood Name: Delivery Method: HAND - Hand Delivered Karla Days: Prior Verbal Notification: Recipient Understood Notice: Yes Recipient Signature: Yes Med Rec Note Co-signed by Attending: Coverage Notice Comment: [facility] Reviewer: [id number] Danita Riley Notice Issued Date-Time: 11/02/2018 12:50 Notice Type: IM Discharge Notice Notice Delivered To: Patient Relationship to Patient: Supervisor Blood Name: Delivery Method: HAND - Hand Delivered Karla Days: Prior Verbal Notification: Recipient Understood Notice: Yes Recipient Signature: Yes Med Rec Note Co-signed by Attending: Coverage Notice Comment: Last DP export: 11/03/18 2:26 pm Patient Name: COLUMBA YU Page [id number] at 0849 All edits/amendments must be made on the electronic document DICTATION DATE: 11/04/18847 MECHANICAL SPREADER OPERATOR: IAIN 11/04/1848 RPT#: [id number] DC DATE: STATUS: ADM IN [facility] [address] [place] [address] END OF REPORT
--- NOTE | 2018-11-04 09:15 | MORECARE ---
CASE MANAGEMENT DISCHARGE SUMMARY PATIENT: COLUMBA YU UNIT: [id number] ADM DATE: 10/27/18 AGE: 83 : 33 SEX: F ROOM/BED: D.2120 AUTHOR: MORALES JANSEN PHYSICIAN: REFERRING PHYSICIAN: TIMOTHY SOLIMAN MD DATE OF SERVICE: 11/04/18 Discharge Plan Patient Name: COLUMBA YU Facility: [facility]:[place] : 1935 Planned Disposition: Snf Facility Anticipated Discharge Date: 11/04/18 Discharge Date: Expected LOS: 8 Initial Reviewer: [id number] Initial Review Date: 10/27/2018 Generated: 11/04/18 10:15 am Comments DCP- Discharge Planning Updated by [id number]: Gamaliel Riley on 11/04/18 8:[address] Patient Name: COLUMBA YU Encounter No: [id number] : 1935 Primary Insurance: MEDICARE A & B Anticipated DC Date: 11-04-2018 Planned Disposition: Snf Facility External Planned Provider: [facility], MEDICARE REHAB BED DCP follow-up note: CM RECEIVED DISCHARGE, FAXED DISCHARGE INFORMATION TO [facility] AT [phone]. NURSE REPORT TO BE CALLED TO [facility] AT [phone]. [facility] TO ARRANGE VAN TRANSPORTATION OR 1000AM TODAY. CM CALLED PT'S DAUGHTER IN LAW, GENESIS YU, , WITH VAN OUTSOLE SPLICER TIME. Cargoman: Gamaliel Riley DCP- Discharge Planning Updated by [id number]: Gamaliel Riley on 11/03/18 2:[address] Patient Name: COLUMBA YU Encounter No: [id number] : 1935 Primary Insurance: MEDICARE A & B Anticipated DC Date: 11-04-2018 Planned Disposition: Snf Facility External Planned Provider: [facility], SKILLED MEDICARE BED Discharge Planning Comments: CM SPOKE TO DR. CALVO AND SANDEE PORTER DR WILL DISCHARGE PT TO PRIVATE PAY COMFORT CARE BED OR SKILLED BED. RN CM HOUSE SPOKE TO PT, PT'S SON AND DAUGHTER IN LAW IN ROOM. PT'S SON REQUESTED SKILLED REHAB BED PT WOULD LIKE TO GET STONGER AND GIVE FAMILY A CHANCE TO WORK OUT FINANCES FOR RETIREMENT CARE OR COMFORT CARE AT THE [facility] IF NEEDED. PAULINE CALLED TALI AT [facility] WHO IS STILL WILLING TO ADMIT TOMORROW IN SKILLED BED FOR REHAB SERVICES, WILL ARRANGE FOR OUTSOLE SPLICER IN THE MORNING, 11-04-18. PAULINE NOTIFIED SANDEE PORTER. FOR DISCHARGE ON 11-04-18, FAX DISCHARGE INFORMATION TO [facility] AT [phone]; NURSE REPORT TO BE CALLED TO [facility] AT [phone]. [facility] TO ARRANGE VAN TRANSPORTATION. CALL PT'S DAUGHTER IN LAW, GENESIS YU, , WITH VAN OUTSOLE SPLICER TIME. Cargoman: Gamaliel Riley DCP- Discharge Planning Updated by [id number]: Radha Ladd on 11/03/18 9:[address] WENT INTO THE ROOM WITH ESPINOZA SUTTON TO SIGN THE ADVANCE DIRECTIVE AND POWER OF MEDICAL TECHNOLOGIST PRN PAPERWORK. PATIENT ANSWERED ALL QUESTIONS ASKED APPROPRIATELY AND WAS ABLE TO REPEAT TO LESLEY WHAT THE PAPERWORK WAS FOR THAT SHE WAS SIGNING. BOTH FORMS WERE SIGNED AND THEN NOTARIZED. THE POA FORM HAS TO BE SIGNED BY THE SON, JV YU, STATING THAT HE ACCEPTS THE RESPONSIBILITY FOR IT TO BE LEGAL, AND PER LESLEY, IT CAN BE SIGNED AFTER NOTARIZED. THE SON'S [id number] WAS ABLE TO REACH JV PRIOR TO PAULINE, AND HE IS AWARE THAT IT NEEDS TO BE SIGNED. I SPOKE WITH ANITA PORTER APN FOR DR CALVO ABOUT THE PATIENT BEING ACCEPTED TO [facility] FOR REHAB. IT WAS EXPLAINED TO HER THAT THE [facility] IS AWARE THAT THE PATIENT NEEDS HOSPICE AND IS REFUSING TO RECEIVE BLOOD OR START DIALYSIS. THEY KNOW THAT HER OUTLOOK IS GRIM, BUT THE PATIENT IS WANTING TO TRY REHAB FIRST. PER TALI, THE DON AT [facility], THEY HAVE A RETIREMENT CARE BED AVAILABLE AND ARE ABLE TO TRANSITION HER FROM REHAB WITH COMFORT CARE (THEY DO NOT DO HOSPICE AT THEIR FACILITY), IF THE REHAB DOES NOT WORK FOR HER. ANITA HAS SPOKE WITH DR CALVO AND STATED THAT THEY WILL NOT DISCHARGE THE PATIENT TO REHAB. THAT THE PATIENT IS NOT MEDICALLY STABLE TO GO TO REHAB. SHE MADE NOTE THAT THEY ARE AWARE THE PATIENT IS REFUSING CARE, BUT STATED THE [facility] WOULD PROBABLY JUST SENT HER BACK. AGAIN I EXPLAINED THE [facility] IS AWARE OF HER LABS AND THE SITUTATION AND HAS A PLAN IN PLACE, THAT THEY ARE TRYING TO HONOR PATIENTS WISHES TO TRY. END CONVERSATION BASICALLY WAS THE PATIENT WILL NOT DISCHARGE IF NOT DISCHARGING WITH HOSPICE. SHE TOOK THE SON'S NUMBER ([phone]) AND IS GOING TO HAVE DR CALVO CALL AND TALK TO THE SON. SHE EXPRESSED THAT SHE DID NOT FEEL THE PATIENT WAS CAPABLE OF MAKING HER OWN DECISIONS AND THEY NEEDED SOMEONE TO MAKE DECISIONS FOR HER. CM WILL WAIT FOR OUTCOME OF THIS. IN THE MEANTIME, ASHLEIGH HAS CALLED THE [facility] AND PUT A STOP TO TRANSPORT FOR THE TIME BEING. SPOKE WITH ANTHONY BLISS APN WITH THE RENAL GROUP. SHE HAS SPOKEN TO DR REESE ABOUT THE SITUTATION AND THEN TOLD ME AND ASHLEIGH THAT DR REESE IS GOING TO TALK WITH DR CALVO. AGAIN WE WILL WAIT FOR THE OUTCOME. LASTLY, I RECEIVED A PHONE CALL FROM ALEX, PATIENTS SON'S [id number]. SHE STATED THAT SHE HAS SPOKEN WITH JV AND HE IS CURRENTLY WORKING IN [place] AND WILL BE OFF SHORTLY AFTER NOON, AND WILL COME STRAIGHT HERE AFTER TO SIGN PAPERS AND TALK TO THE DOCTORS. DCP- Discharge Planning Updated by [id number]: Gamaliel Riley on 11/03/18 9:[address] Patient Name: COLUMBA YU Encounter No: [id number] : 1935 Primary Insurance: MEDICARE A & B Anticipated DC Date: 11-03-2018 Planned Disposition: Snf Facility External Planned Provider: [facility], UNKNOWN BED STATUS DCP follow-up note: CM RECEIVED CALL FROM TALI OF [facility], , THEY WILL ACCEPT TO TRY REHAB AT PT'S REQUEST AND CAN TRANSITION TO COMFORT CARE LONG FAMILY IS WILLING TO MAKE FINANCIAL ARRAGEMENTS FOR ROOM AND BOARD. [facility] CAN OUTSOLE SPLICER PT AT 1130AM TODAY. CM NOTIFIED PT WHO IS IN AGREEMENT WITH PLAN. PT'S DAUGHTER IN LAW'S SISTER ASSISTED WITH FILLING OUT MEDICAL POWER OF MEDICAL TECHNOLOGIST PRN AT PT'S REQUEST. PT COMPLETED MEDICAL POWER OF MEDICAL TECHNOLOGIST PRN FOR HER SON WHO NEEDS TO SIGN ACCEPTANCE. CM NOTIFIED SANDEE PORTER. CM INFORMED THAT DR. CALVO WILL NOT DISCHARGE PT TO REHAB AND THAT IF DISCHARGED, IT WILL NEED TO BE WITH HOSPICE CARE. SANDEE PORTER INFORMED CM THAT DR. CALVO IS ATTEMPTING TO CALL AND SPEAK TO PT'S SON REGARDING PLAN AND TREATMENT. CM CALLED [facility], SPOKE TO TALI AND CANCELLED TRANSPORT ARRANGEMENTS. CM WAITING FOR DOCTOR AND PT'S SON TO DISCUSS PT'S CARE AND TREATMENT PLAN. CM TO CONTINUE TO FOLLOW AND ASSIST NEEDED. Gamaliel Riley, CASE MANAGEMENT DCP- Discharge Planning Updated by [id number]: Gamaliel Riley on 10/31/18 3:[address] Patient Name: COLUMBA YU Encounter No: [id number] : 1935 Primary Insurance: MEDICARE A & B Anticipated DC Date: 10-28-2018 Planned Disposition: Home DCP follow-up note: CM SPOKE TO DR. REESE WHO REPORTS PT'S RENAL FUNCTIONING APPEARS TO BE DECLINING. CM SPOKE TO PT IN ROOM REGARDING DISCHARGE PLANNING AND NEEDS. PT REPORTED TO CM THAT SHE THOUGHT SHE WOULD HAVE ALREADY BEEN DISCHARGED HOME AND DID NOT EXPECT TO STILL BE IN THE HOSPITAL. CM ASKED ABOUT WHAT THE DOCTORS HAVE BEEN TELLING HER. PT REPORTS SHE SPOKE TO DR. REESE AND UNDERSTANDS HER KINDEY CONDITION AND IF IT COMES TO NEEDING DIALYSIS, PT STATES SHE WILL NOT DO THAT. PT REPORTS THAT SHE UNDERSTANDS THAT IT WOULD MEAN SHE WOULD , BUT SHE IS COMFORABLE WITH THIS DECISION AND ALL OF HER ARRANGMENTS ARE MADE. PT DENIES NEEDS OF CM AT THIS TIME AND REPORTS PLAN TO DISCHARGE HOME WITH HER SON, BUT STATES SHE DOES NOT WANT TO BE A BURDEN TO ANYONE. IF PT NEEDS DIALYSIS, AT THIS TIME, SHE INDICATED TO CM THAT SHE WOULD NOT CONSENT TO IT. PT DENIES DISCHARGE NEEDS. PT CONTINUES TO PLAN TO DISCHARGE HOME WITH HER SON. CM WILL CONTINUE TO FOLLOW AND ASSIST NEEDED. Cargoman: Gamaliel Riley DCP- Discharge Planning Updated by [id number]: Gamaliel Riley on 10/27/18 4:[address] Patient Name: COLUMBA YU Admission Status: Urgent Accout number: [id number] Admission Date: 10-27-2018 : 1935 Admission Diagnosis: Attending: JOURDAN, Current LOS: 1 Anticipated DC Date: 10-28-2018 Planned Disposition: Home Primary Insurance: MEDICARE A & B Discharge Planning Comments: CM RECEIVED REQUEST TO PROVIDE PT WITH ASSISTED LIVING INFORMATION. CM MET WITH PT IN ROOM TO DISCUSS DISCHARGE PLANNING AND NEEDS. PT REPORTS LIVING AT HOME INDEPENDENTLY WITH HER ADULT SON IN HIS HOME. PT REPORTS SHE HAS HER HOME NEXT DOOR TO HER SON'S ON HIS PROPERTY AND SIGNED EVERYTHING OVER TO HIM AT THE MEDICAL TECHNOLOGIST PRN'S OFFICE. PT REPORTS HER GRANDDAUGHTER IS LIVING IN HER (PT'S) HOME AND PT IS LIVING IN A ROOM IN HER SON'S HOME NOW. PT REPORT ALL OF HER NICE BELONGINGS AND THINGS ARE IN HER HOME AND NONE WILL BE MOVED UNTIL SHE DIES. PT REPORTS HER SON WILL GET HER HOUSE AND HER DAUGHTER WILL GET EVERYTHING OUT OF THE HOUSE, EVEN THOUGH SHE DOES NOT WANT IT. PT HAS A WALKER THAT SHE DOES NOT USE, FROM [employer]. PT HAS NO OUTSIDE SERVICES ASSISTING IN THE HOME. CM DISCUSSED AVAILABILITY OF HOME HEALTH, REHAB SERVICES AND MEDICAL EQUIPMENT. PT DENIES DISCHARGE NEEDS, REPORTS HER SON WILL PICK HER UP FOR DISCHARGE HOME CM PROVIDED ASSISTED AND INDEPENDENT LIVING INFORMATION, DISCUSSED COSTS. PT REPORTS SHE [facility] AND NO WHERE ELSE. PT REPORTS SHE CANNOT AFFORD EITHER ONE, AND HAS INCOME OF $1,300 PER MONTH. PT KNOWS THAT EXCEPTIONS CAN BE MADE AND A MIRACLE CAN HAPPEN AND SHE MAY COULD GET IN. CM EXPLAINED THAT ALL ASSISTED LIVINGS ARE A BUSINESS AND THAT IF SHE CANNOT PAY THE RATE SHE WILL NOT GET IN. CM PROVIDED PT WITH A PLACE FOR MOM REFERRAL SERVICE. PT REPORTS IT TO BE OK TO DISCUSS DISCHARGE PLANNING WITH HER SON WELL TREATMENT INFORMATION. CM OFFERED TO CALL ROJELIO OF [facility] AND HAVE ROJELIO CALL HER AND HER SON TO SEE WHAT IS AVAILABLE IN PT'S [place] RANGE. PT ACCEPTED. CM CALLED ROJEL[facility] OF [facility], , PROVIDED REFERRAL INFORMATION. ROJELIO LATER CALLED AND INFORMED CM THAT PT DID NOT ANSWER THE PHONE IN THE ROOM BUT SHE CALLED PT'S SON, JV AND PT'S BUDGET DOES NOT ALLOW WHAT PT WANTS AND THAT ROJELIO AND PT'S SON WILL CONTINUE TO SEEK OPTIONS FOR PT. PT DENIES DISCHARGE NEEDS. PT PLANS TO DISCHARGE HOME WITH HER SON WHERE SHE REPORTS TO BE SAFE. PT'S SON AND [facility] WILL CONTINUE TO SEEK INDEPENDENT OR ASSISTED LIVING FOR PT THAT SHE CAN ACTUALLY AFFORD, IF ANY. Cargoman: Gamaliel Riley DCPIA - Discharge Planning Initial Assessment Updated by [id number]: Gamaliel Riley on 10/27/18 5:43 pm * Is the patient Alert and Oriented? Yes * How many steps to enter\exit or inside your home? * PCP DR. SOLIMAN * [facility] [place] * Preadmission Environment Home with Family * ADLs Independent * Equipment Walker * Other Equipment DOES NOT USE ANY MEDICAL EQUIPMENT [employer] - MEDICAL EQUIPMENT PROVIDER * List name and contact numbers for known caregivers / representatives who currently or will assist patient after discharge: JV YU, SON, * Verbal permission to speak to the caregivers and representatives has been obtained from the patient. Yes * Community resources currently utilized None * Please name any agencies selected above. NONE * Additional services required to return to the preadmission environment? No * Can the patient safely return to the preadmission environment? Yes * Has this patient been hospitalized within the prior 30 days at any hospital? No Coverage Notice Reviewer: [id number] Danita Riley Notice Issued Date-Time: 11/02/2018 12:50 Notice Type: Patient Choice Letter Notice Delivered To: Patient Relationship to Patient: Medical Officer Psychiatry Name: Delivery Method: HAND - Hand Delivered Krala Days: Prior Verbal Notification: Recipient Understood Notice: Yes Recipient Signature: Yes Med Rec Note Co-signed by Attending: Coverage Notice Comment: [facility] Reviewer: [id number] Danita Riley Notice Issued Date-Time: 11/02/2018 12:50 Notice Type: IM Discharge Notice Notice Delivered To: Patient Relationship to Patient: Medical Officer Psychiatry Name: Delivery Method: HAND - Hand Delivered Karla Days: Prior Verbal Notification: Recipient Understood Notice: Yes Recipient Signature: Yes Med Rec Note Co-signed by Attending: Coverage Notice Comment: Last DP export: 11/04/18 7:49 am Patient Name: COLUMBA YU Page [id number] at 0915 All edits/amendments must be made on the electronic document DICTATION DATE: 11/04/18913 CONCRETE PIPE PLANT SUPERVISOR: IAIN 11/04/18913 RPT#: [id number] DC DATE: STATUS: ADM IN [facility] [address] [place] [address] END OF REPORT
== END 2018-11-04 10:00 | DRG 291 ==
LOC: D.M2 16:48 → D.SDCHOLD 16:48 → OBSVTIME 16:49 → D.M2 17:37
PROVIDERS: Emergency Medicine; Family Medicine; Internal Medicine Nephrology; ADMIT Family Medicine
DX: I13.0 Hypertensive heart and chronic kidney disease with heart failure and stage 1 through stage 4 chronic kidney disease, or unspecified chronic kidney disease (principal); I50.23 Acute on chronic systolic (congestive) heart failure; J18.1 Lobar pneumonia, unspecified organism; N17.9 Acute kidney failure, unspecified; B02.29 Other postherpetic nervous system involvement; N18.9 Chronic kidney disease, unspecified; E11.22 Type 2 diabetes mellitus with diabetic chronic kidney disease; Z79.4 Long term (current) use of insulin; E87.5 Hyperkalemia; D63.1 Anemia in chronic kidney disease; E78.2 Mixed hyperlipidemia; I08.0 Rheumatic disorders of both mitral and aortic valves; J98.4 Other disorders of lung